=== PATIENT | male | born 1935 | race Caucasian/White ===

== ENCOUNTER 2018-06-16 13:13 | Observation (INO) | payer OTHER ==
--- OUTSIDE RECORDS SUMMARY | 2018-06-16 13:15 | XMS REPORT ---
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
--- OUTSIDE RECORDS SUMMARY | 2018-06-16 13:15 | XMS REPORT ---
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, in partial remission Problem Macular degeneration, unspecified H35.30 Active laterality, unspecified type Problem Weakness R53.1 Active Problem Malnutrition E46 Active Problem Cerumen impaction H61.20 Active Problem Tobacco use disorder F17.200 Active Problem Chronic obstructive pulmonary J44.9 Active disease, unspecified COPD type Problem Anorexia R63.0 Active Problem Malaise and fatigue R53.81 Active Medications Medication Code Code Instructions Start End Status Dosage System Date Date Albuterol-Ipratr NDC 0 2.5-0.5 MG/3ML Active 3 ml opium Inhalation every 6 hrs Fexofenadine HCl ND 74902715317 60 MG Orally Active 1 tablet Twice a day as needed Mirtazapine ND 33754290195 7.5 MG Orally Active 1 tablet Once a day at bedtime Ventolin HFA ND 98895262107 108 (90 Base) April Active 2 puffs as MCG/ACT 2017 needed Inhalation every 6 hrs PRN Cough, Shortness of breath, wheezing Results No Known Results Summary Purpose eClinicalWorks Submission
--- OUTSIDE RECORDS SUMMARY | 2018-06-16 13:16 | XMS REPORT ---
:1935 Author Organization eClinicalWorks Care Team Providers Name Role Phone Quinton Lucio Provider Role Unavailable Allergies No Known Allergies Problems Problem Type Condition Code Onset Dates Condition Status Problem Major depressive disorder with F32.4 Active [...] R53.81 Active Medications No Known Medications Results No Known Results Summary Purpose eClinicalWorks Submission
--- OUTSIDE RECORDS SUMMARY | 2018-06-16 13:16 | XMS REPORT ---
:1935 Author Organization eClinicalWorks Care Team Providers Name Role Phone LucioQuinton Provider Role Unavailable Allergies, Adverse Reactions, Alerts Substance Reaction Event Type N.K.D.A. 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, in partial remission Problem Macular degeneration, unspecified H35.30 Active laterality, unspecified type Problem Weakness R53.1 Active Problem Malnutrition E46 Active Problem Cerumen impaction H61.20 Active Problem Tobacco use disorder F17.200 Active Problem Chronic obstructive pulmonary J44.9 Active disease, unspecified COPD type Problem Anorexia R63.0 Active Problem Malaise and fatigue R53.81 Active Assessment Malaise and fatigue R53.81 Active Assessment Unintentional weight loss R63.4 Active Assessment Weakness R53.1 Active Assessment 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, in partial remission Assessment Malnutrition E46 Active Assessment Anorexia R63.0 Active Assessment Chronic obstructive pulmonary J44.9 Active disease, unspecified COPD type Assessment Chronic diarrhea K52.9 Active Medications Medication Code Code Instructions Start End Status Dosage System Date Date Ventolin HFA [facility] 41775714983 108 (90 Base) Active 2 puffs as MCG/ACT needed Inhalation every 6 hrs PRN Cough, Shortness of breath, wheezing Albuterol-Ipratr NDC 0 2.5-0.5 MG/3ML Active 3 ml opium Inhalation every 6 hrs Fexofenadine HCl NDC 59329751136 60 MG Orally Active 1 tablet Twice a day as needed Mirtazapine NDC 18296645014 7.5 MG Orally Active 1 tablet Once a day at bedtime Results No Known Results Summary Purpose eClinicalWorks Submission
--- OUTSIDE RECORDS SUMMARY | 2018-06-16 13:16 | XMS REPORT ---
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, in partial remission Assessment Unintentional weight loss R63.4 Active Assessment Malnutrition E46 Active Assessment Anorexia R63.0 Active Assessment Chronic obstructive pulmonary J44.9 Active disease, unspecified COPD type Medications Medication Code Code Instructions Start End Status Dosage System Date Date Albuterol-Ipratr NDC 0 2.5-0.5 MG/3ML Active 3 ml opium Inhalation every 6 hrs Ventolin HFA ND 26080083630 108 (90 Base) Active 2 puffs as MCG/ACT needed Inhalation every 6 hrs PRN Cough, Shortness of breath, wheezing Fexofenadine HCl ND 53883149456 60 MG Orally Active 1 tablet Twice a day as needed Mirtazapine ND 18253721649 7.5 MG Orally Active 1 tablet Once a day at bedtime Results Name Result Date Reference Range Unit Abnormality Flag TSH W/REFLEX TO FT4 ----TSH W/REFLEX TO 2.68 [id number] 0.40-4.50 mIU/L N FT4 CBC (INCLUDES DIFF/PLT) ----ABSOLUTE 844 86303294 15-500 cells/uL H EOSINOPHILS ----MCV 93.5 33057151 80.0-100.0 fL N ----ABSOLUTE 695 17793813 200-950 cells/uL N MONOCYTES ----HEMATOCRIT 38.7 55767564 38.5-50.0 % N ----MCHC 34.6 60555056 32.0-36.0 g/dL N ----ABSOLUTE 1340 26782112 850-3900 cells/uL N LYMPHOCYTES ----MCH 32.4 37325497 27.0-33.0 pg N ----ABSOLUTE 2742 15022112 2847-5908 cells/uL N NEUTROPHILS ----MONOCYTES 12.2 73438176 % N ----WHITE BLOOD 5.7 12616395 3.8-10.8 Thousand/u N CELL COUNT L ----LYMPHOCYTES 23.5 84226932 % N ----NEUTROPHILS 48.1 08519213 % N ----HEMOGLOBIN 13.4 34976464 13.2-17.1 g/dL N ----ABSOLUTE 80 57379691 0-200 cells/uL N BASOPHILS ----RED BLOOD CELL 4.14 92403910 4.20-5.80 Million/uL L COUNT ----BASOPHILS 1.4 71547167 % N ----MPV 9.4 30476323 7.5-12.5 fL N ----EOSINOPHILS 14.8 26521870 % N ----RDW 13.2 87920305 11.0-15.0 % N ----PLATELET COUNT 265 28296967 140-400 Thousand/u N L COMPREHENSIVE METABOLIC PANEL(CMP) ----ALBUMIN/GLOBULI 1.7 59886994 1.0-2.5 (calc) N N RATIO ----GLOBULIN 2.6 81628602 1.9-3.7 g/dL N (calc) ----ALKALINE 50 18259742 40-115 U/L N PHOSPHATASE ----BILIRUBIN, 0.7 13963328 0.2-1.2 mg/dL N TOTAL ----CHLORIDE 94 22096648 98-110 mmol/L L ----ALT 12 57525344 9-46 U/L N ----POTASSIUM 5.0 20180226 3.5-5.3 mmol/L N ----AST 23 20180226 10-35 U/L N ----SODIUM 131 20180226 135-146 mmol/L L ----BUN/CREATININE NOT APPLICABLE 20180226 6-22 (calc) RATIO ----eGFR 95 20180226 > OR=60 mL/min/1.[address] ----CALCIUM 9.4 20180226 8.6-10.3 mg/dL N ----CARBON DIOXIDE 29 20180226 20-32 mmol/L N ----ALBUMIN 4.4 20180226 3.6-5.1 g/dL N ----PROTEIN, TOTAL 7.0 20180226 6.1-8.1 g/dL N ----GLUCOSE 93 20180226 65-99 mg/dL N ----UREA NITROGEN 10 20180226 7-25 mg/dL N (BUN) ----CREATININE 0.80 20180226 0.70-1.11 mg/dL N ----eGFR NON-AFR. 82 20180226 > OR=60 mL/min/1.[address] URINALYSIS, COMPLETE W/REFLEX TO CULTURE ----KETONES NEGATIVE 20180226 NEGATIVE N ----BILIRUBIN NEGATIVE 20180226 NEGATIVE N ----PROTEIN NEGATIVE 08249283 NEGATIVE N ----OCCULT BLOOD NEGATIVE 14708313 NEGATIVE N ----LEUKOCYTE NEGATIVE 20180226 NEGATIVE N ESTERASE ----WBC NONE SEEN 20180226 < OR=5 /HPF N ----NITRITE NEGATIVE 20180226 NEGATIVE N ----BACTERIA NONE SEEN 20180226 NONE SEEN /HPF N ----PH 6.5 40022055 5.0-8.0 N ----HYALINE CAST NONE SEEN 20180226 NONE SEEN /LPF N ----GLUCOSE NEGATIVE 47915471 NEGATIVE N ----RBC NONE SEEN 31759568 < OR=2 /HPF N ----APPEARANCE CLEAR 56371969 CLEAR N ----SQUAMOUS NONE SEEN 49178505 < OR=5 /HPF N EPITHELIAL CELLS ----SPECIFIC 1.014 20180226 1.001-1.035 N GRAVITY ----COLOR YELLOW 10014010 YELLOW N ----REFLEXIVE URINE NO CULTURE 20180226 CULTURE INDICATED URIC ACID ----URIC ACID 4.1 20180226 4.0-8.0 mg/dL N Summary Purpose eClinicalWorks Submission
--- OUTSIDE RECORDS SUMMARY | 2018-06-16 13:16 | XMS REPORT ---
:1935 [facility] Providers Name Role Phone NaveedQuinton Provider Role Unavailable Allergies, Adverse Reactions, Alerts Substance Reaction Event Type N.K.D.A. 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, in partial remission Problem Cerumen impaction H61.20 Active Assessment Encounter for screening for other Z13.89 Active disorder Problem Weakness R53.1 Active Assessment Uncomplicated alcohol abuse F10.10 Active Problem Allergic rhinitis, unspecified J30.9 Active seasonality, unspecified trigger Problem Malaise and fatigue R53.81 Active Problem Tobacco use disorder F17.200 Active Problem Malnutrition E46 Active Problem Anorexia R63.0 Active Assessment Anorexia R63.0 Active Assessment Chronic diarrhea K52.9 Active Assessment Weakness R53.1 Active Assessment Malaise and fatigue R53.81 Active Assessment Allergic rhinitis, unspecified J30.9 Active seasonality, unspecified trigger Assessment Chronic obstructive pulmonary J44.9 Active disease, unspecified COPD type Assessment Malnutrition E46 Active Assessment 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, in partial remission Problem Need for assistance due to unsteady R26.89 Active gait Medications Medication Code Code Instructions Start End Date Status Dosage System Date Albuterol-Iprat NDC 0 2.5-0.5 MG/3ML Active 3 ml ropium Inhalation every 6 hrs Mirtazapine ND 96701916514 7.5 MG Orally Active 1 tablet Once a day at bedtime Ventolin HFA ND 70506156092 108 (90 Base) Active 2 puffs MCG/ACT as needed Inhalation every 6 hrs PRN Cough, Shortness of breath, wheezing Cetirizine HCl ND 75169457271 10 MG Orally AprilAugust 03, Active 1 tablet Once a day 2018 Fexofenadine [facility] 44377579112 60 MG Orally April Inactive 1 tablet HCl Twice a day 2018 as needed Montelukast [facility] 62218887772 10 MG Orally April Active 1 tablet Sodium Once a day 2018 Results No Known Results Summary Purpose eClinicalWorks Submission
--- OUTSIDE RECORDS SUMMARY | 2018-06-16 13:16 | XMS REPORT ---
[...] Problem Malaise and fatigue R53.81 Active Assessment Anorexia R63.0 Active Assessment 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, in partial remission Assessment Unintentional weight loss R63.4 Active Assessment Malnutrition E46 Active Assessment Chronic diarrhea K52.9 Active Assessment Chronic obstructive pulmonary J44.9 Active disease, unspecified COPD type Medications Medication Code Code Instructions Start End Status Dosage System Date Date Fexofenadine HCl ND 50177183639 60 MG Orally Active 1 tablet Twice a day as needed Mirtazapine ND 49057305612 7.5 MG Orally Active 1 tablet Once a day at bedtime Ventolin HFA ND 35192818605 108 (90 Base) Active 2 puffs as MCG/ACT needed Inhalation every 6 hrs PRN Cough, Shortness of breath, wheezing Albuterol-Ipratr NDC 0 2.5-0.5 MG/3ML Active 3 ml opium Inhalation every 6 hrs Results No Known Results Summary Purpose eClinicalWorks Submission
--- NOTE | 2018-06-16 15:14 | EKG ---
Test Date: 2018-06-16 Test Time: 15:03:56 Master Technician: RADHA MEASUREMENT RESULTS: Intervals: Rate: 86 NH: 152 QRSD: 106 QT: 364 QTc: 435 [place]: P: 78 NH: 152 QRS: -60 T: 70 INTERPRETIVE STATEMENTS: Sinus rhythm with premature atrial complexes Left axis deviation Right bundle branch block Abnormal ECG Compared to ECG 07/13/2014 12:52:28 Atrial premature complex(es) now present Left-axis deviation now present Electronically Signed On 06-16-18 15:13:50 CDT by Lobito Hunter
[2018-06-16] MEDS ORDERED: ALBUTEROL 2.5 MG/3 ML NEB SOL ONE (15:18)
[2018-06-16] MEDS ORDERED: IPRATROPIUM BROM 0.5MG/2.5ML ONE (15:18)
[2018-06-16] MEDS ORDERED: predniSONE 20 MG TAB ONE (15:19)
[2018-06-16 15:35] LABS: Absolute Lymphocytes (CBC) 0.7 K/uL (0.7-4.9); Absolute Monocytes 0.7 K/uL (0.1-1.3); Absolute Neutrophil 3.8 K/uL (1.8-8.0); Basophils % 0.4 % (0-1.3); Eosinophils % 14.6 % (0-4.4); Lymphocytes % 11.1 % (15.3-44.8); MPV 7.1 fL (7.6-11.3); Monocytes % 12.2 % (3.3-12.3); RBC Red Blood Cell Count 4.19 M/uL (4.33-5.43)
[2018-06-16 15:36] LABS: Protime INR 0.98
[2018-06-16 15:46] LABS: ALT/SGPT 16 U/L (12-78); AST/SGOT 21 U/L (15-37); Albumin 3.7 g/dL (3.4-5.0); Alkaline Phosphatase 70 U/L (45-117); BUN Blood Urea Nitrogen 14 mg/dL (7-18); Bicarbonate 30 mmol/L (21-32); Bilirubin Direct 0.2 mg/dL (0-0.2); Bilirubin Total 0.6 mg/dL (0.2-1.0); Glucose Level 83 mg/dL (74-106); Magnesium 2.1 mg/dL (1.8-2.4); NT PRO-BNP 582 pg/mL (<450); Potassium 4.7 mmol/L (3.5-5.1); Protein, Total 8.1 g/dL (6.4-8.2); Sodium Level 133 mmol/L (136-145); Troponin (Emerg Dept Use Only) < 0.02 ng/mL (0.0-0.045)
--- NOTE | 2018-06-16 16:17 | RAD REPORT ---
EXAM DESCRIPTION: RAD - Chest Single View - 06/16/2018 4:03 pm CLINICAL HISTORY: COPD, shortness of breath COMPARISON: December 2016 TECHNIQUE: AP portable chest image was obtained 1556 hours . FINDINGS: Very extensive interstitial fibrotic changes are present. There is some volume loss in the right hemithorax compared to prior imaging. Lung markings are slightly more pronounced in the mid ri ght lung field. Severity of chronic disease can easily mask early interstitial edema or infiltrate. N o failure findings. Heart and vasculature are normal. No measurable pleural effusion and no pneumotho rax. No acute bony abnormality seen. No acute aortic findings suspected. IMPRESSION: Extensive fibrotic lung change. Questionable early pneumonia changes in the right midlung field.
--- NOTE | 2018-06-16 16:56 | ER ---
Nurse's Notes [facility] Name: Elias Carlisle Age: 82 yrs Sex: Male : 1935 Arrival Date: 06/16/2018 Time: 13:15 Bed 26 Private MD: Quinton Lucio Diagnosis: Chronic obstructive pulmonary disease with (acute) exacerbation;Lobar pneumonia, unspecified organism;Hypoxemia Presentation: 06/16 13:27 Presenting complaint: daughter reports that patient has a history of COPD and has had ss shortness of breath x 2 days. Denies fever. Also c/o diarrhea and decreased appetite. Transition of care: patient was not received from another setting of care. Onset of symptoms was June 14, 2018. Risk Assessment: Do you want to hurt yourself or someone else? Patient reports no desire to harm self or others. Initial Sepsis Screen: Does the patient meet any 2 criteria? No. Patient's initial sepsis screen is negative. Does the patient have a suspected source of infection? No. Patient's initial sepsis screen is negative. Care prior to arrival: None. 13:27 Acuity: MARTIR 2 ss 13:27 Method Of Arrival: Wheelchair ss Triage Assessment: 18:00 Respiratory: Reports shortness of breath on exertion Onset: The symptoms/episode mg2 began/occurred yesterday, the patient has mild shortness of breath. 18:00 General: Appears in no apparent distress. comfortable, Behavior is calm, cooperative. mg2 Historical: - Allergies: 13:29 INFLUENZA VIRUS VACCINES; ss - Home Meds: 16:00 Dimetapp [Active]; mg2 - PMHx: 13:29 COPD; macular degeneration; ss - Immunization history:: Adult Immunizations up to date. - Social history:: Smoking status: Patient/guardian denies using tobacco, the patient reports quitting approximately 2 years ago. - Ebola Screening: : Patient denies exposure to infectious person Patient denies travel to an Ebola-affected area in the 21 days before illness onset. Screenin:48 Abuse screen: Denies threats or abuse. Denies injuries from another. Nutritional mg2 screening: No deficits noted. Tuberculosis screening: No symptoms or risk factors identified. Fall Risk IV access (20 points). Assessment: 15:47 General: Appears in no apparent distress. comfortable, Behavior is calm, cooperative. mg2 Pain: Denies pain. Neuro: Level of Consciousness is awake, alert, obeys commands, Oriented to person, place, time, situation. Cardiovascular: Rhythm is. Respiratory: Airway is patent Respiratory effort is even, unlabored, Respiratory pattern is regular, symmetrical, Breath sounds with wheezes bilaterally. in right upper lobe, left upper lobe, right middle lobe, left lower lobe, right lower lobe, left posterior upper lobe, right posterior upper lobe, left posterior lower lobe, right posterior middle lobe and right posterior lower lobe. GI: No signs and/or symptoms were reported involving the gastrointestinal system. : No signs and/or symptoms were reported regarding the genitourinary system. EENT: No signs and/or symptoms were reported regarding the EENT system. Derm: Skin is intact, is healthy with good turgor, Skin is pink, warm \T\ dry. normal. Musculoskeletal: No signs and/or symptoms reported regarding the musculoskeletal system. 17:24 Reassessment: dr tee -hospitalist at bedside assessing the patient. patient and mg2 family informed about the admission. Vital Signs: 13:29 BP 131 / 67; Pulse 105; Resp 19; Temp 98.2(TE); Pulse Ox 93% on R/A; Weight 47.63 kg; ss Height 5 ft. 6 in. (167.64 cm); 14:06 Pulse Ox 97% on 2 lpm NC; ss 15:59 BP 169 / 84; Pulse 88; Resp 18; Temp 98.1; Pulse Ox 98% on 2 lpm NC; mg2 17:39 BP 159 / 83; Pulse 86; Resp 20; Temp 98.0(O); Pulse Ox 100% ; lt1 17:51 BP 158 / 82; Pulse 92; Resp 18; Temp 98; Pulse Ox 98% on 2 lpm NC; Pain 0/10; mg2 19:30 BP 143 / 69; Pulse 99; Resp 18; Temp 98.5; Pulse Ox 97% on 2 lpm NC; Pain 0/10; mg2 13:29 Body Mass Index 16.95 (47.63 kg, 167.64 cm) ED Course: 13:15 Patient arrived in ED. mr 13:15 Quinton Lucio DO is Private Physician. mr 13:28 Triage completed. ss 13:29 Arm band placed on right wrist. ss 14:33 Darryl Topete, RN is Primary Nurse. mg2 14:48 Hernesto Wood MD is Attending Physician. gs 15:03 EKG done, by surgery technician. reviewed by Hernesto Wood MD. at1 15:48 Patient has correct armband on for positive identification. Pulse ox on. NIBP on. Door mg2 closed. Warm blanket given. 15:48 No provider procedures requiring assistance completed. Inserted saline lock: 20 gauge mg2 in right antecubital area, using aseptic technique. Blood collected. 16:03 XRAY Chest (1 view) In Process Unspecified. EDMS 16:55 Alyssa Tee MD is Hospitalizing Provider. gs 19:53 Patient admitted, IV remains in place. mg2 Administered Medications: 15:18 Drug: Albuterol 2.5 mg Route: Inhalation; mg2 16:12 Follow up: Response: No adverse reaction; Marked relief of symptoms mg2 15:18 Drug: AtroVENT Aerosol 0.5 mg Route: Inhalation; mg2 16:12 Follow up: Response: No adverse reaction; Marked relief of symptoms mg2 15:18 Drug: predniSONE 40 mg Route: PO; mg2 16:12 Follow up: Response: No adverse reaction; Marked relief of symptoms mg2 17:14 Drug: Rocephin - (cefTRIAXone) 1 grams Route: IVPB; Infused Over: 30 mins; Site: right mg2 antecubital; 20:18 Follow up: Response: No adverse reaction; IV Status: Completed infusion mg2 17:14 Drug: LevaQUIN 500 mg Volume: 100 ml; Route: IVPB; Infused Over: 60 mins; Site: right mg2 antecubital; 20:18 Follow up: Response: No adverse reaction; IV Status: Completed infusion mg2 Outcome: 16:55 Decision to Hospitalize by Provider. gs 19:53 Admitted to Tele accompanied by tech, via wheelchair, room 406, with oxygen, with mg2 chart, Report called to EFRAIN Cervantes 19:53 Condition: improved 19:53 Instructed on the need for admit. 20:19 Patient left the ED. mg2 Signatures: Dispatcher [employer] EDLA Lucie Ferrera Shelby, RN RN ss Jacquie Rivers, field mechanical meter tester EKG Tat1 Hernesto Wood MD MD Darryl Topete RN RN mg2 Pemberton, Scarlett lt1 Corrections: (The following items were deleted from the chart) 16:00 15:59 Pulse 88bpm; Resp 18bpm; Pulse Ox 98% 2 lpm Nasal Cannula; Temp 98.1F; mg2 mg2
--- NOTE | 2018-06-16 16:56 | EDPHYS ---
Physician Documentation [facility] Name: Elias Carlisle Age: 82 yrs Sex: Male : 1935 Arrival Date: 06/16/2018 Time: 13:15 Bed 26 Private MD: Naveed [facility] ED Physician Hernesto Wood HPI: 06/16 18:33 This 82 yrs old Male presents to ER via Wheelchair with complaints of gs Breathing Difficulty. 18:33 The patient has shortness of breath at rest. Onset: The symptoms/episode began/occurred gs 1 week(s) ago, and became worse and became persistent. Duration: The symptoms are continuous. The patient's shortness of breath is aggravated by coughing, exertion. Associated signs and symptoms: Pertinent positives: productive cough, Pertinent negatives: fever. Severity of symptoms: At their worst the symptoms were severe in the emergency department the symptoms are unchanged. The patient has experienced similar episodes in the past, several times. The patient has not recently seen a physician. Historical: - Allergies: 13:29 INFLUENZA VIRUS VACCINES; ss - Home Meds: 16:00 Dimetapp [Active]; mg2 - PMHx: 13:29 COPD; macular degeneration; ss - Immunization history:: Adult Immunizations up to date. - Social history:: Smoking status: Patient/guardian denies using tobacco, the patient reports quitting approximately 2 years ago. - Ebola Screening: : Patient denies exposure to infectious person Patient denies travel to an Ebola-affected area in the 21 days before illness onset. ROS: 18:33 All other systems are negative. gs Exam: 18:33 Head/Face: Normocephalic, atraumatic. Eyes: Pupils equal round and reactive to light, gs extra-ocular motions intact. Lids and lashes normal. Conjunctiva and sclera are non-icteric and not injected. Cornea within normal limits. Periorbital areas with no swelling, redness, or edema. ENT: Nares patent. No nasal discharge, no septal abnormalities noted. Tympanic membranes are normal and external auditory canals are clear. Oropharynx with no redness, swelling, or masses, exudates, or evidence of obstruction, uvula midline. Mucous membranes moist. Neck: Trachea midline, no thyromegaly or masses palpated, and no cervical lymphadenopathy. Supple, full range of motion without nuchal rigidity, or vertebral point tenderness. No Meningismus. Chest/axilla: Normal chest wall appearance and motion. Nontender with no deformity. No lesions are appreciated. 18:33 Abdomen/GI: Soft, non-tender, with normal bowel sounds. No distension or tympany. No guarding or rebound. No evidence of tenderness throughout. Back: No spinal tenderness. No costovertebral tenderness. Full range of motion. Skin: Warm, dry with normal turgor. Normal color with no rashes, no lesions, and no evidence of cellulitis. MS/ Extremity: Pulses equal, no cyanosis. Neurovascular intact. Full, normal range of motion. Neuro: Awake and alert, GCS 15, oriented to person, place, time, and situation. Cranial nerves II-XII grossly intact. Motor strength 5/5 in all extremities. Sensory grossly intact. Cerebellar exam normal. Normal gait. 18:33 Constitutional: The patient appears alert, awake, in obvious distress, severely distressed. 18:33 Cardiovascular: Rate: tachycardic, Rhythm: regular, Pulses: no pulse deficits are appreciated, Heart sounds: normal. 18:33 ECG was reviewed by the Attending Physician. 18:33 Respiratory: severe repiratory distress is noted, Respirations: tachypnea, that is moderate, Breath sounds: wheezing: Vital Signs: 13:29 BP 131 / 67; Pulse 105; Resp 19; Temp 98.2(TE); Pulse Ox 93% on R/A; Weight 47.63 kg; ss Height 5 ft. 6 in. (167.64 cm); 14:06 Pulse Ox 97% on 2 lpm NC; ss 15:59 BP 169 / 84; Pulse 88; Resp 18; Temp 98.1; Pulse Ox 98% on 2 lpm NC; mg2 17:39 BP 159 / 83; Pulse 86; Resp 20; Temp 98.0(O); Pulse Ox 100% ; lt1 17:51 BP 158 / 82; Pulse 92; Resp 18; Temp 98; Pulse Ox 98% on 2 lpm NC; Pain 0/10; mg2 19:30 BP 143 / 69; Pulse 99; Resp 18; Temp 98.5; Pulse Ox 97% on 2 lpm NC; Pain 0/10; mg2 13:29 Body Mass Index 16.95 (47.63 kg, 167.64 cm) MDM: 14:57 Patient medically screened. gs 18:33 Differential diagnosis: CHF exacerbation, Chronic Obstructive Pulmonary Disease gs Myocardial Infarction pneumonia. Data reviewed: vital signs, nurses notes, lab test result(s), EKG, radiologic studies. Counseling: I had a detailed discussion with the patient and/or guardian regarding: the historical points, exam findings, and any diagnostic results supporting the discharge/admit diagnosis, the need for outpatient follow up. Response to treatment: the patient's symptoms have mildly improved after treatment, and as a result, I will admit patient. 06/16 14:58 Order name: Basic Metabolic Panel; Complete Time: 16:02 06/16 14:58 Order name: CBC with Diff; Complete Time: 16:02 06/16 14:58 Order name: LFT's; Complete Time: 16:02 06/16 14:58 Order name: Magnesium; Complete Time: 16:02 06/16 14:58 Order name: NT PRO-BNP; Complete Time: 16:02 06/16 14:58 Order name: PT-INR; Complete Time: 16:02 06/16 14:58 Order name: Troponin (emerg Dept Use Only); Complete Time: 16:02 06/16 14:58 Order name: XRAY Chest (1 view); Complete Time: 16:34 06/16 14:58 Order name: EKG; Complete Time: 14:58 06/16 14:58 Order name: Cardiac monitoring; Complete Time: 15:18 06/16 14:58 Order name: EKG - Nurse/Tech; Complete Time: 15:03 06/16 14:58 Order name: IV Saline Lock; Complete Time: 15:18 06/16 14:58 Order name: Labs collected and sent; Complete Time: 15:18 06/16 14:58 Order name: O2 Per Protocol; Complete Time: 15:18 06/16 14:58 Order name: O2 Sat Monitoring; Complete Time: 15:18 gs EC:33 Rate is 108 beats/min. Rhythm is regular. MN interval is normal. QRS interval is gs normal. No ST changes noted. Clinical impression: Abnormal EKG without significant change. Interpreted by me. Administered Medications: 15:18 Drug: Albuterol 2.5 mg Route: Inhalation; mg2 16:12 Follow up: Response: No adverse reaction; Marked relief of symptoms mg2 15:18 Drug: AtroVENT Aerosol 0.5 mg Route: Inhalation; mg2 16:12 Follow up: Response: No adverse reaction; Marked relief of symptoms mg2 15:18 Drug: predniSONE 40 mg Route: PO; mg2 16:12 Follow up: Response: No adverse reaction; Marked relief of symptoms mg2 17:14 Drug: Rocephin - (cefTRIAXone) 1 grams Route: IVPB; Infused Over: 30 mins; Site: right mg2 antecubital; 20:18 Follow up: Response: No adverse reaction; IV Status: Completed infusion mg2 17:14 Drug: LevaQUIN 500 mg Volume: 100 ml; Route: IVPB; Infused Over: 60 mins; Site: right mg2 antecubital; 20:18 Follow up: Response: No adverse reaction; IV Status: Completed infusion mg2 Disposition: 18:33 Critical Care:. gs Disposition: 06/16/18 16:55 Hospitalization ordered by Alyssa Espinosa for Inpatient Admission. Preliminary diagnosis are Chronic obstructive pulmonary disease with (acute) exacerbation, Lobar pneumonia, unspecified organism, Hypoxemia. - Bed requested for Telemetry/MedSurg (Inpatient). - Status is Inpatient Admission. mg2 - Condition is Stable. - Problem is new. - Symptoms have improved. UTI on Admission? No Critical care time excluding procedures: 18:33 Critical care time: Bedside Care: 10 minutes, Consultation: 10 minutes, Family gs Intervention: 10 minutes. Total time: 30 minutes Signatures: Dispatcher [employer] EDMS Juany Ponce Shaunna Crawford RN RN Hernesto Wood MD MD Darryl Topete RN RN mg2 Corrections: (The following items were deleted from the chart) 18:39 16:55 Hospitalization Ordered by Alyssa Espinosa MD for Inpatient Admission. Preliminary bd diagnosis is Chronic obstructive pulmonary disease with (acute) exacerbation; Lobar pneumonia, unspecified organism. Bed requested for Telemetry/MedSurg (Inpatient). Status is Inpatient Admission. Condition is Stable. Problem is new. Symptoms have improved. UTI on Admission? No. gs 18:42 18:39 06/16/2018 16:55 Hospitalization Ordered by Alyssa Espinosa MD for Inpatient Admission. Preliminary diagnosis is Chronic obstructive pulmonary disease with (acute) exacerbation; Lobar pneumonia, unspecified organism. Bed requested for Telemetry/MedSurg (Inpatient). Status is Inpatient Admission. Condition is Stable. Problem is new. Symptoms have improved. UTI on Admission? No. bd 20:19 18:42 06/16/2018 16:55 Hospitalization Ordered by Alyssa Espinosa MD for Inpatient mg2 Admission. Preliminary diagnosis is Chronic obstructive pulmonary disease with (acute) exacerbation; Lobar pneumonia, unspecified organism; Hypoxemia. Bed requested for Telemetry/MedSurg (Inpatient). Status is Inpatient Admission. Condition is Stable. Problem is new. Symptoms have improved. UTI on Admission? No. gs
[2018-06-16] MEDS ORDERED: Levofloxacin500mg IV 500 MG/100 ML BAG IV ONE (17:15)
[2018-06-16] MEDS ORDERED: CEFTRIAXONE/SWI 1gm 1 GM/10 ML SYR ONE (17:15)
[2018-06-16] MEDS ORDERED: ACETAMINOPHEN 500 MG TAB PO PRN (20:42)
[2018-06-16] MEDS ORDERED: IPRATROPIUM BROM 0.5MG/2.5ML NEB PRN (20:42)
[2018-06-16] MEDS ORDERED: ALBUTEROL 2.5 MG/3 ML NEB SOL NEB PRN (20:42)
[2018-06-16] MEDS ORDERED: ONDANSETRON 4 MG/2 ML VIAL IV PRN (20:42)
[2018-06-16] MEDS: METHYLPREDNISOLONE 40 MG INJ IV SCH (21:00)
[2018-06-17] MEDS ORDERED: ALBUTEROL INHALER 60 PUFF/8 GM IH PRN (00:11)
[2018-06-17 03:21] LABS: Urine Appearance CLEAR; Urine Bilirubin NEGATIVE (NEG); Urine Blood NEGATIVE (NEG); Urine Color YELLOW; Urine Glucose NEGATIVE (NEG); Urine Protein NEGATIVE (NEG); Urine Specific Gravity 1.015 (1.005-1.030); Urine Urobilinogen 0.2 mg/dL (0.2-1.0)
[2018-06-17 03:23] LABS: Urine Microscopic Reflex NO UMIC
--- NOTE | 2018-06-17 03:23 | HP ---
Date of Admission: 06/16/2018 Chief Complaint: Shortness of breath. Code Status: Full. History Of Present Illness: The patient is an 82-year-old male with past medical history of COPD, on intermittent oxygen, who was in his usual state of health until several days prior to admission when the patient started having more difficulty ambulating, worsening shortness of breath, was only able to ambulate 3-5 feet without getting winded. The patient normally only uses oxygen during the nightt darrick, however, has been needing to use his home O2 during the daytime as well. The patient also repor ts some cough with thick white sputum. Denies any ill contacts. No fever or chills. The patient ca me into the ER for further evaluation. His symptoms were constant, moderate, progressively worsening . In the ER, his workup revealed normal WBC count. His x-ray showed extensive fibrotic lung change, questionable early pneumonia changes in the right mid lung field, and he was referred for admission. When seen in the ER, he was awake, alert, oriented x3, in some mild respiratory distress. He was f ound to be hypoxic, approximately 90% on room air. Past Medical History: COPD, nicotine dependence. Past Surgical History: Bilateral cataracts, tonsils and left finger surgery. Allergies: TO THE FLU VACCINE. Medications: As per medication reconciliation list. Social History: The patient lives alone, fairly independent in his activities of daily living. Uses a walker at times when going outside. The patient is a current every day smoker, has a long history of chronic alcohol use. The patient is . Family History: Noncontributory in this 82-year-old male. Review of Systems: Eleven-point system reviewed, negative except as per HPI. Physical Examination: Vital Signs: Blood pressure 131/67, pulse 105, respirations 19, temperature 98.2, O2 93% on room air . BMI 16. General: Awake, alert, oriented x3. Elderly male, ill appearing, in some mild respiratory distress. HEENT: Normocephalic, atraumatic. PERRLA. EOMI. Moist mucous membranes. Oropharynx is clear. Co njunctivae anicteric. Neck: Supple. No JVD. Trachea midline. CV: S1, S2. Regular rate and rhythm. Peripheral pulses present. Respiratory: Diminished breath sounds, diffuse wheezing is heard, some rhonchi present. The patient is slightly tachypneic. No use of accessory muscles. No stridor. Gastrointestinal: Abdomen is soft, nontender, nondistended. Positive bowel sounds. No guarding or rigidity. Extremities: No clubbing, cyanosis, or edema. No calf tenderness. Neuro: Cranial nerves 2 through 12 intact grossly. No focal neurological deficit. Speech is normal . Strength is symmetric in bilateral upper and lower extremities. Sensation intact to light touch. Skin: No rashes. Normal skin turgor. Psych: Mood is okay. Affect is congruent with mood. Insight and judgment are good. Laboratory Data: Sodium 133, potassium 4.7, chloride 98, CO2 30, BUN 14, creatinine 0.83, glucose 83 , calcium 9.1, magnesium 2.1. Troponin less than 0.02. BNP 582. INR 0.98. WBC 6.1, H and H 13.3 a nd 39, platelets 349, neutrophils 61%. EKG shows sinus rhythm with premature atrial complexes, left axis deviation, right bundle-branch block, rate of 86. Chest x-ray, personally reviewed, shows exten sive fibrotic lung change, questionable early pneumonia changes in the right mid lung field. Assessment And Plan: An 82-year-old male with: 1.Acute on chronic respiratory failure with hypoxia. The patient is already on home O2 intermittent ly, requiring oxygen 24/7 secondary to chronic obstructive pulmonary disease and pneumonia. 2.Right middle lobe pneumonia. We will start on azithromycin and Rocephin. Obtain blood cultures a nd sputum cultures. Continue with supplemental oxygen. 3.Acute chronic obstructive pulmonary disease exacerbation. We will start on nebulizer treatments a nd IV steroids. The patient currently requiring supplemental oxygen. We will continue to monitor fo r improvement. 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 4.Fibrotic lung disease. 5.Nicotine dependence. Cigarette smoking counseled. 6.Failure to thrive. BMI of 16. The patient currently on Megace. 7.Deep vein thrombosis prophylaxis with Lovenox. Plan: Admit the patient to Med-Surg, place as inpatient. We will obtain physical therapy once the p atient is more stabilized. May need snf facility versus PT with home health to be set up on discharge. We will consult Social Work. /PATRICIA Voice ID: [id number]
[2018-06-17] MEDS: METHYLPREDNISOLONE 40 MG INJ IV SCH ×4 (05:24→17:58)
[2018-06-17 05:56] LABS: Absolute Lymphocytes (CBC) 0.4 K/uL (0.7-4.9); Absolute Monocytes 0.1 K/uL (0.1-1.3); Absolute Neutrophil 1.8 K/uL (1.8-8.0); Albumin 3.1 g/dL (3.4-5.0); Basophils % 0.2 % (0-1.3); Bilirubin Total 0.4 mg/dL (0.2-1.0); Eosinophils % 0.1 % (0-4.4); Hematocrit 36.7 % (39.6-49.0); Lymphocytes % 18.6 % (15.3-44.8); MPV 7.4 fL (7.6-11.3); Monocytes % 3.2 % (3.3-12.3); Potassium 4.8 mmol/L (3.5-5.1); Protein, Total 7.2 g/dL (6.4-8.2); RBC Red Blood Cell Count 3.96 M/uL (4.33-5.43)
[2018-06-17] MEDS ORDERED: CEFTRIAXONE 1 GM/NS 50 ML 1 GM/50 ML BAG IV SCH (09:00)
[2018-06-17] MEDS ORDERED: ALBUTEROL 2.5 MG/3 ML NEB SOL NEB PRN (09:00)
[2018-06-17] MEDS: CEFTRIAXONE/SWI 1gm 1 GM/10 ML SYR IV SCH ×2 (09:45→21:03)
[2018-06-17] MEDS: ENOXAPARIN 40 MG/0.4 ML SQ SCH (10:47)
[2018-06-17] MEDS: AZITHROMYCIN IV 500 MG in NA CHLORIDE 0.9% 250 ML IVPB SCH (10:47)
[2018-06-17] MEDS: MONTELUKAST 10 MG TAB PO SCH (10:47)
[2018-06-17] MEDS: MULTIVIT W/ MINERAL TAB PO SCH (10:47)
[2018-06-17] MEDS: CETIRIZINE HCL 5 MG TABLET PO SCH (10:47)
[2018-06-17] MEDS: MUCINEX DM 12HR.SR TAB PO SCH (10:48)
--- NOTE | 2018-06-17 17:46 | P.PN ---
Subjective Date of Service: 06/17/18 Subjective: Improving Patient seen and examined at bedside. No family at bedside. Chart reviewed and case discussed with nursing staff. Reports improvement in breathing. States he is doing well. No acute events noted overnight Review of Systems 10-point ROS is otherwise unremarkable Physical Examination - Vital Signs Temperature: 97.6 F Blood Pressure: 127/57 Pulse: 81 Respirations: 18 Pulse Ox (%): 95 - Physical Exam General: Alert, In no apparent distress HEENT: Atraumatic, PERRLA, EOMI Neck: Supple, JVD not distended Respiratory: Clear to auscultation bilaterally, Normal air movement Cardiovascular: Regular rate/rhythm, Normal S1 S2 Gastrointestinal: Normal bowel sounds, No tenderness Musculoskeletal: No tenderness Integumentary: No rashes Neurological: Normal speech, Normal tone, Normal affect Lymphatics: No axilla or inguinal lymphadenopathy Assessment And Plan - Plan An 82-year-old male with: 1. Acute on chronic respiratory failure with hypoxia. Improving. The patient is already on home O2 intermittently, requiring oxygen 24/7 secondary to chronic obstructive pulmonary disease and pneumonia. 2. Right middle lobe pneumonia. Continue azithromycin and Rocephin. Follow up blood cultures and sputum cultures. Continue with supplemental oxygen. 3. Acute chronic obstructive pulmonary disease exacerbation. We will continue with nebulizer treatments and IV steroids. The patient currently requiring supplemental oxygen. We will continue to monitor for improvement. 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 4. Fibrotic lung disease. 5. Nicotine dependence. Cigarette smoking counseled. 6. Failure to thrive. BMI of 16. The patient currently on Megace. 7. Deep vein thrombosis prophylaxis with Lovenox. Plan: Pending symptomatic improvement. Patient refuses half-way facility placement. He would like to go home with home health. Social work already on board. Possible discharge home with home health in the next 24-48 hr.
[2018-06-17] MEDS ORDERED: MIRTAZAPINE 15 MG TAB PO SCH (21:00)
[2018-06-18] MEDS: METHYLPREDNISOLONE 40 MG INJ IV SCH ×4 (01:37→16:37)
[2018-06-18] MEDS: CETIRIZINE HCL 5 MG TABLET PO SCH (08:25)
[2018-06-18] MEDS: CEFTRIAXONE/SWI 1gm 1 GM/10 ML SYR IV SCH (08:25)
[2018-06-18] MEDS: ENOXAPARIN 40 MG/0.4 ML SQ SCH (08:25)
[2018-06-18] MEDS: MULTIVIT W/ MINERAL TAB PO SCH (08:25)
[2018-06-18] MEDS: MUCINEX DM 12HR.SR TAB PO SCH (08:26)
[2018-06-18] MEDS: MONTELUKAST 10 MG TAB PO SCH (08:26)
[2018-06-18] MEDS: AZITHROMYCIN IV 500 MG in NA CHLORIDE 0.9% 250 ML IVPB SCH (08:29)
[2018-06-18 09:31] LABS: Hematocrit 39.5 % (39.6-49.0); MPV 7.5 fL (7.6-11.3); RBC Red Blood Cell Count 4.19 M/uL (4.33-5.43)
[2018-06-18 09:47] LABS: Potassium 4.6 mmol/L (3.5-5.1)
--- NOTE | 2018-06-18 13:44 | RAD REPORT ---
EXAM DESCRIPTION: Moises Marroquin And Lat (2 Views)06/18/2018 1:33 pm CLINICAL HISTORY: Cough COMPARISON: June 16, 2018 FINDINGS: Lungs are markedly hyperaerated. The lungs appear clear of acute infiltrate. The heart is normal size IMPRESSION: COPD without visualization of an acute abnormality
--- NOTE | 2018-06-18 14:25 | P.SSS ---
Patient History Date of Service: 06/18/18 Reason for admission: SOB History of Present Illness: The patient is an 82-year-old male with past medical history of COPD, on intermittent oxygen, who was in his usual state of health until several days prior to admission when the patient started having more difficulty ambulating, worsening shortness of breath, was only able to ambulate 3-5 feet without getting winded. The patient normally only uses oxygen during the nighttime, however, has been needing to use his home O2 during the daytime as well. The patient also reports some cough with thick white sputum. Denies any ill contacts. No fever or chills. The patient came into the ER for further evaluation. His symptoms were constant, moderate, progressively worsening. In the ER, his workup revealed normal WBC count. His x-ray showed extensive fibrotic lung change, questionable early pneumonia changes in the right mid lung field, and he was referred for admission. When seen in the ER, he was awake, alert, oriented x3, in some mild respiratory distress. He was found to be hypoxic, approximately 90% on room air. Allergies Influen Allergy (Uncoded 10/20/16 22:28) Unknown INFLUENZA Allergy (Uncoded 12/19/16 17:10) Unknown Home medications list reviewed: Yes Home Medications: Albuterol Sulfate [Albuterol Sulfate 0.083% Neb Soln] 2.5 mg IH QIDP PRN Albuterol Sulfate [Ventolin Hfa] 2 puff IH DAILYPRN PRN 06/16/18 Cetirizine HCl 10 mg PO DAILY 06/16/18 Guaifenesin/Dextromethorphan [Mucinex Dm ER 600-30 mg Tablet] 1 each PO DAILY Mirtazapine 7.5 mg PO BEDTIME 06/16/18 Montelukast [Singulair*] 10 mg PO DAILY 06/16/18 Multivit-Min/FA/Lycopen/Lutein [Centrum Silver Tablet] 1 tab PO DAILY 06/16/18 Vit C/Jasmeet AC/Lut/Copper/Znox [Preservision Lutein Softgel] 1 each PO DAILY 08/29 Azithromycin Tab [Zithromax*] 250 mg PO DAILY #4 tab 06/18/18 predniSONE [Deltasone*] 10 mg PO BID #14 tab 06/18/18 - Past Medical/Surgical History Has patient received pneumonia vaccine in the past: No Diabetic: No -: COPD -: [employer]obb[employer] abuse -: MACULAR DEGENERATION ON RIGHT EYE -: cataract bilateral -: tonsils -: finger Left - Family History Father History Unknown: Yes Mother -: Cancer - Social History Smoking Status: Former smoker Alcohol use: Yes CD- Drugs: No Caffeine use: No Place of Residence: Home Review of Systems 10-point ROS is otherwise unremarkable Physical Examination - Vital Signs Temperature: 97.5 F Blood Pressure: 138/63 Pulse: 82 Respirations: 20 Pulse Ox (%): 96 - Physical Exam General: Alert, In no apparent distress, Cachectic, Other (Elderly, frail) HEENT: Atraumatic, PERRLA, Mucous membr. moist/pink, EOMI, Sclerae nonicteric Neck: Supple, 2+ carotid pulse no bruit, No LAD, Without JVD or thyroid abnormality Respiratory: Clear to auscultation bilaterally, Normal air movement Cardiovascular: Regular rate/rhythm, Normal S1 S2 Gastrointestinal: Normal bowel sounds, No tenderness Musculoskeletal: No tenderness Integumentary: No rashes Neurological: Normal gait, Normal speech, Normal strength at 5/5 x4 extr, Normal tone, Normal affect Lymphatics: No axilla or inguinal lymphadenopathy Treatment Summary: Patient was admitted for acute on chronic respiratory failure likely secondary to right lower lobe pneumonia. Patient does have a history of COPD and uses oxygen at home intermittently. He was started on IV antibiotics, breathing treatments and was provided supplemental oxygen as needed. Physical therapy was consulted as was social work for discharge planning. Patients symptoms improved; his breathing returned to baseline. His blood and sputum cultures remained negative. His repeat cxr was without any acute infiltrates. He worked well with physical therapy but refused placement in a nursing home facility. He reluctantly agreed to home health for PT. This was set up for the patient prior to discharge. Prior to discharge, he was AAOx3, in no acute distress, satting well on room air , working well with physical therapy. He otherwise remained stable throughout the stay. His diagnosis/treatment plan was explained to him, all questions were answered and he verbalized understanding. He was discharged home in a safe and stable manner with Home health. He was discharged home with a prescription for azithromycin 250 mg PO daily to complete a 5 day course and prednisone 10 mg BID x 7 days. He was instructed to follow up with his PCP and his sledger. - Disposition Discharge Date: 06/18/18 Disposition: DC HOME/HOME HEALTH CARE Condition: GOOD Patient Discharge Instructions: Please follow up with your primary care physician in 2-3 days. Please return to the Emergency room for worsening symptoms. Diet: AHA Activity: Ad diony Time Spent Managing Pts Care (In Minutes): 55
[2018-06-18] MEDS ORDERED: ENSURE ENLIVE 237 ML CAN PO SCH (21:00)
== END 2018-06-18 17:33 | disposition home health service (06) ==
LOC: ER 13:13 → ERHOLD 17:02 → INTOOBSV 17:02 → 4TH 19:59
PROVIDERS: ADMIT Family Medicine; ATTEND Family Medicine
DX: J96.21 Acute and chronic respiratory failure with hypoxia (principal); J44.0 Chronic obstructive pulmonary disease with (acute) lower respiratory infection; J18.9 Pneumonia, unspecified organism; J44.1 Chronic obstructive pulmonary disease with (acute) exacerbation; Z99.81 Dependence on supplemental oxygen; F17.210 Nicotine dependence, cigarettes, uncomplicated; R62.7 Adult failure to thrive; Z68.1 Body mass index [BMI] 19.9 or less, adult; J84.10 Pulmonary fibrosis, unspecified; Z88.7 Allergy status to serum and vaccine
CPT/HCPCS: 96365 ×3; 96368; 93005; 87040 ×2; 85025 ×2; 80048 ×2; 36415 ×2; 83735; 85610; 80076; 81003; 85027; 84484; 80053; 83880; 71045; 71046; 97116 ×3; 97163; 97530; 94640; 94760 ×4; 99285; 96366; J0456 ×2; J1650 ×2; J0696 ×4; J2920 ×8; G0378 ×2; J7512

== ENCOUNTER 2018-10-07 08:32 | Inpatient (IN) | payer OTHER, SELFPAY ==
--- OUTSIDE RECORDS SUMMARY | 2018-10-07 08:35 | XMS REPORT ---
[...] remission Problem Cerumen impaction H61.20 Active Assessment Uncomplicated alcohol abuse F10.10 Active Problem Weakness R53.1 Active Problem Allergic rhinitis, unspecified J30.9 Active [...] Start End Status Dosage System Date Date Tai [facility] 83086716232 15 MCG/2ML Sep 23, Active 2 ml Inhalation Twice 2019 a day Albuterol-Iprat NDC 0 2.5-0.5 MG/3ML Active 3 ml ropium Inhalation every 6 hrs Montelukast [facility] [id number] 10 MG Orally Active 1 tablet Sodium Once a day Cetirizine HCl ND 15142518817 10 MG Orally Active 1 tablet Once a day Montelukast ND 05646181581 10 MG Orally Active 1 tablet Sodium Once a day Ventolin HFA [facility] 11915007172 108 (90 Base) Active 2 puffs as MCG/ACT needed Inhalation every 6 hrs PRN Cough, Shortness of breath, wheezing Mirtazapine [facility] [id number] 7.5 MG Orally Active 1 tablet Once a day at bedtime Results No Known Results Summary Purpose eClinicalWorks Submission
--- OUTSIDE RECORDS SUMMARY | 2018-10-07 08:35 | XMS REPORT ---
:1935 [facility] Providers Name Role Phone Naveed [...] Inhalation every 6 hrs Ventolin HFA ND [id number] 108 (90 Base) Active 2 puffs as MCG/ACT needed Inhalation every 6 hrs PRN Cough, Shortness of breath, wheezing Fexofenadine HCl ND 29489735603 60 MG Orally Active 1 tablet Twice a day as needed Mirtazapine ND 28196839185 7.5 MG Orally Active 1 tablet Once a day at bedtime Results Name Result Date Reference Range Unit Abnormality Flag TSH W/REFLEX TO FT4 ----TSH W/REFLEX TO 2.68 [id number] 0.40-4.50 mIU/L N FT4 CBC (INCLUDES DIFF/PLT) ----ABSOLUTE 844 [id number] 15-500 cells/uL H EOSINOPHILS ----MCV 93.5 06531774 80.0-100.0 fL N ----ABSOLUTE 695 58967707 200-950 cells/uL N MONOCYTES ----HEMATOCRIT 38.7 88580663 38.5-50.0 % N ----MCHC 34.6 01084330 32.0-36.0 g/dL N ----ABSOLUTE 1340 45601594 850-3900 cells/uL N LYMPHOCYTES ----MCH 32.4 [id number] 27.0-33.0 pg N ----ABSOLUTE 2742 84459406 3158-8835 cells/uL N NEUTROPHILS ----MONOCYTES 12.2 56257742 % N ----WHITE BLOOD 5.7 [id number] 3.8-10.8 Thousand/u N CELL COUNT L ----LYMPHOCYTES 23.5 91745576 % N ----NEUTROPHILS 48.1 66631865 % N ----HEMOGLOBIN 13.4 67317669 13.2-17.1 g/dL N ----ABSOLUTE 80 95774806 0-200 cells/uL N BASOPHILS ----RED BLOOD CELL 4.14 61614002 4.20-5.80 Million/uL L COUNT ----BASOPHILS 1.4 24632954 % N ----MPV 9.4 00410126 7.5-12.5 fL N ----EOSINOPHILS 14.8 78459354 % N ----RDW 13.2 82132262 11.0-15.0 % N ----PLATELET COUNT 265 87025858 140-400 Thousand/u N L COMPREHENSIVE METABOLIC PANEL(CMP) ----ALBUMIN/GLOBULI 1.7 00988593 1.0-2.5 (calc) N N RATIO ----GLOBULIN 2.6 43924842 1.9-3.7 g/dL N (calc) ----ALKALINE 50 31049226 40-115 U/L N PHOSPHATASE ----BILIRUBIN, 0.7 85373365 0.2-1.2 mg/dL N TOTAL ----CHLORIDE 94 32718605 98-110 mmol/L L ----ALT 12 45393522 9-46 U/L N ----POTASSIUM 5.0 20180226 3.5-5.3 mmol/L N ----AST 23 20180226 10-35 U/L N ----SODIUM 131 20180226 135-146 mmol/L L ----BUN/CREATININE NOT APPLICABLE 20180226 6-22 (calc) RATIO ----eGFR 95 20180226 > OR=60 mL/min/1.[address] ----CALCIUM 9.4 20180226 8.6-10.3 mg/dL N ----CARBON DIOXIDE 29 20180226 20-32 mmol/L N ----ALBUMIN 4.4 20180226 3.6-5.1 g/dL N ----PROTEIN, TOTAL 7.0 20180226 6.1-8.1 g/dL N ----GLUCOSE 93 20180226 65-99 mg/dL N ----UREA NITROGEN 10 20180226 7-25 mg/dL N (BUN) ----CREATININE 0.80 20180226 0.70-1.11 mg/dL N ----eGFR NON-AFR. 82 20180226 > OR=60 mL/min/1.[address] URINALYSIS, COMPLETE W/REFLEX TO CULTURE ----KETONES NEGATIVE 20180226 NEGATIVE N ----BILIRUBIN NEGATIVE 20180226 NEGATIVE N ----PROTEIN NEGATIVE 64943228 NEGATIVE N ----OCCULT BLOOD NEGATIVE 14312116 NEGATIVE N ----LEUKOCYTE NEGATIVE 20180226 NEGATIVE N ESTERASE ----WBC NONE SEEN 20180226 < OR=5 /HPF N ----NITRITE NEGATIVE 20180226 NEGATIVE N ----BACTERIA NONE SEEN 20180226 NONE SEEN /HPF N ----PH 6.5 00712613 5.0-8.0 N ----HYALINE CAST NONE SEEN 20180226 NONE SEEN /LPF N ----GLUCOSE NEGATIVE 20550197 NEGATIVE N ----RBC NONE SEEN 47856882 < OR=2 /HPF N ----APPEARANCE CLEAR 96355240 CLEAR N ----SQUAMOUS NONE SEEN 09106148 < OR=5 /HPF N EPITHELIAL CELLS ----SPECIFIC 1.014 20180226 1.001-1.035 N GRAVITY ----COLOR YELLOW [id number] YELLOW N ----REFLEXIVE URINE NO CULTURE 20180226 CULTURE INDICATED URIC ACID ----URIC ACID 4.1 20180226 4.0-8.0 mg/dL N Summary Purpose eClinicalWorks Submission
--- OUTSIDE RECORDS SUMMARY | 2018-10-07 08:35 | XMS REPORT ---
:1935 [facility] Team Providers Name Role Phone LucioQuinton [...] Start End Status Dosage System Date Date Montelukast [facility] [id number] 10 MG Orally Active 1 tablet Sodium Once a day Montelukast [facility] 02988281223 10 MG Orally Active 1 tablet Sodium Once a day Albuterol-Iprat NDC 0 2.5-0.5 MG/3ML Active 3 ml ropium Inhalation every 6 hrs Ventolin HFA [facility] 82008192502 108 (90 Base) Active 2 puffs as MCG/ACT needed Inhalation every 6 hrs PRN Cough, Shortness of breath, wheezing Mirtazapine [facility] 86272031807 7.5 MG Orally Active 1 tablet Once a day at bedtime Results No Known Results Summary Purpose eClinicalWorks Submission
--- OUTSIDE RECORDS SUMMARY | 2018-10-07 08:35 | XMS REPORT ---
[...] ropium Inhalation every 6 hrs Mirtazapine ND 60392966358 7.5 MG Orally Active 1 tablet Once a day at bedtime Ventolin HFA ND 30191274970 108 (90 Base) Active 2 puffs MCG/ACT as needed Inhalation every 6 hrs PRN Cough, Shortness of breath, wheezing Cetirizine HCl ND 72513089583 10 MG Orally AprilAugust 03, Active 1 tablet Once a day 2018 Fexofenadine [facility] 97945843579 60 MG Orally April Inactive 1 tablet HCl Twice a day 2018 as needed Montelukast [facility] 23065342106 10 MG Orally April Active 1 tablet Sodium Once a day 2018 Results No Known Results Summary Purpose eClinicalWorks Submission
--- OUTSIDE RECORDS SUMMARY | 2018-10-07 08:35 | XMS REPORT ---
[...] due to unsteady R26.89 Active gait Problem Cerumen impaction H61.20 Active Problem Weakness R53.1 Active Problem Allergic rhinitis, unspecified J30.9 Active seasonality, unspecified trigger Problem Malaise and fatigue R53.81 Active Problem Tobacco use disorder F17.200 Active Problem Malnutrition E46 Active Problem Anorexia R63.0 Active Medications No Known Medications Results No Known Results Summary Purpose eClinicalWorks Submission
--- OUTSIDE RECORDS SUMMARY | 2018-10-07 08:35 | XMS REPORT ---
[...] Status Dosage System Date Date Ventolin HFA [facility] 59500609921 108 (90 Base) Active 2 puffs as MCG/ACT needed Inhalation every 6 hrs PRN Cough, Shortness of breath, wheezing Albuterol-Ipratr NDC 0 2.5-0.5 MG/3ML Active 3 ml opium Inhalation every 6 hrs Fexofenadine HCl NDC 84049053490 60 MG Orally Active 1 tablet Twice a day as needed Mirtazapine NDC 47410922402 7.5 MG Orally Active 1 tablet Once a day at bedtime Results No Known Results Summary Purpose eClinicalWorks Submission
[2018-10-07] MEDS ORDERED: LEVALBUTEROL 0.63 MG/3 ML NEB ONE (08:46)
[2018-10-07] MEDS ORDERED: IPRATROPIUM BROM 0.5MG/2.5ML ONE (08:47)
[2018-10-07] MEDS ORDERED: LEVALBUTEROL 1.25 MG/3 ML NEB ONE (08:57)
[2018-10-07] MEDS ORDERED: MAGNESIUM SULFATE 1 gm IVPB 1 GM/100 ML BAG IV ONE (08:57)
[2018-10-07] MEDS ORDERED: METHYLPREDNISOLONE 125 MG INJ ONE (08:57)
[2018-10-07 09:07] LABS: Absolute Lymphocytes (CBC) 1.2 K/uL (0.7-4.9); Basophils % 0.6 % (0-1.3); Lymphocytes % 17.2 % (15.3-44.8); MPV 7.1 fL (7.6-11.3); RBC Red Blood Cell Count 4.04 M/uL (4.33-5.43)
[2018-10-07 09:25] LABS: ALT/SGPT 18 U/L (12-78); AST/SGOT 18 U/L (15-37); Albumin 3.3 g/dL (3.4-5.0); Alkaline Phosphatase 58 U/L (45-117); BUN Blood Urea Nitrogen 20 mg/dL (7-18); Bicarbonate 32 mmol/L (21-32); Bilirubin Direct 0.2 mg/dL (0-0.2); Bilirubin Total 0.5 mg/dL (0.2-1.0); Glucose Level 93 mg/dL (74-106); Lipase 80 U/L (73-393); NT PRO-BNP 299 pg/mL (<450); Potassium 4.4 mmol/L (3.5-5.1); Protein, Total 7.2 g/dL (6.4-8.2); Sodium Level 136 mmol/L (136-145); Troponin (Emerg Dept Use Only) < 0.02 ng/mL (0.0-0.045)
--- NOTE | 2018-10-07 09:37 | RAD REPORT ---
EXAM DESCRIPTION: RAD - Chest Single View - 10/07/2018 9:20 am CLINICAL HISTORY: Dyspnea, decreased O2 saturation COMPARISON: September 24 TECHNIQUE: AP portable chest image was obtained 0914 hours . FINDINGS: Patient has a prominent baseline COPD pattern. The hyperexpanded left lung field shows no acute mass or infiltrate. Right lung volume is reduced compared to the prior study. This accentuates and already prominent baseline pattern. Chest findings are suspicious in the mid and lower right lung field 4 interstitial edema or infiltrate superimposed on the chronic pattern. No dense consolidation or mass. Heart and vasculature are normal. No measurable pleural effusion and no pneumothorax. No acute bony abnormality seen. No acute aortic findings suspected. IMPRESSION: Extensive baseline COPD. Right lung volume is reduced with accentuated lung markings. Interstitial pneumonia and interstitial edema are easily masked in this setting.
[2018-10-07] MEDS ORDERED: NA CHLORIDE 0.9% 500 ML ONE (09:47)
--- NOTE | 2018-10-07 10:35 | ER ---
Nurse's Notes [facility] Name: Elias Carlisle Age: 82 yrs Sex: Male : 1935 Arrival Date: 10/07/2018 Time: 08:33 Bed 4 Private MD: Quinton Lucio Diagnosis: Right lower lobe pneumonia;Chronic obstructive pulmonary disease with acute lower respiratory infection;Chronic obstructive pulmonary disease with (acute) exacerbation;Hypoxemia Presentation: 10/07 09:05 Presenting complaint: Child states: He woke up short of breath, O2 levels were 75% and jl7 HR 107. Transition of care: patient was not received from another setting of care. Onset of symptoms was October 07, 2018. Risk Assessment: Do you want to hurt yourself or someone else? Patient reports no desire to harm self or others. Initial Sepsis Screen: Does the patient meet any 2 criteria? RR > 20 per min. HR > 90 bpm. Yes Does the patient have a suspected source of infection? No. Patient's initial sepsis screen is negative. Care prior to arrival: None. 09:05 Method Of Arrival: Ambulatory jl7 09:05 Acuity: MARTIR 2 jl7 Historical: - Allergies: 09:05 INFLUENZA VIRUS VACCINES; tw2 - Home Meds: 09:05 Dimetapp [Active]; tw2 - PMHx: 09:05 COPD; macular degeneration; tw2 - Immunization history:: Adult Immunizations. - Social history:: Smoking status: . - Family history:: not pertinent. - Ebola Screening: : Patient denies travel to an Ebola-affected area in the 21 days before illness onset. - Hospitalizations: : No recent hospitalization is reported. Screenin:04 Abuse screen: Denies threats or abuse. Nutritional screening: No deficits noted. tw2 Tuberculosis screening: No symptoms or risk factors identified. Fall Risk Secondary diagnosis (15 points) impaired mobility. Assessment: 09:09 General: Appears distressed, Behavior is calm, cooperative, appropriate for age. Pain: jl7 Denies pain. Neuro: Level of Consciousness is awake, alert, obeys commands. Cardiovascular: Heart tones present Patient's skin is warm and dry. Respiratory: Airway is patent Respiratory effort is labored, with retractions, Respiratory pattern is symmetrical, tachypnea Breath sounds are diminished bilaterally. Breath sounds with wheezes bilaterally. EENT: Parent/caregiver reports the patient having Hard of hearing. Derm: Skin is pink, warm \T\ dry. 10:20 Reassessment: Patient appears in no apparent distress at this time. Patient and/or jl7 family updated on plan of care and expected duration. Pain level reassessed. Patient is alert, oriented x 3, equal unlabored respirations, skin warm/dry/pink. Patient states feeling better. Patient states symptoms have improved. 11:42 Reassessment: Pt laying in bed with eyes closed, respirations even and unlabored, no jl7 signs of distress noted. 12:30 Reassessment: Patient appears in no apparent distress at this time. Patient and/or jl7 family updated on plan of care and expected duration. Pain level reassessed. Patient is alert, oriented x 3, equal unlabored respirations, skin warm/dry/pink. 13:10 Reassessment: Attempted to call report, nurse unavailable. jl7 Vital Signs: 08:43 BP 186 / 88; Pulse 94; Resp 34 S; Temp 97.7(A); Pulse Ox 85% on R/A; jl7 08:50 Pulse Ox 100% on 50% Venturi mask; jl7 09:08 Pulse Ox 100% on BiPAP; jl7 09:30 BP 127 / 61; Pulse 85; Resp 22 S; Pulse Ox 100% on BiPAP; jl7 10:21 BP 132 / 59; Pulse 88; Resp 19 S; Pulse Ox 100% on BiPAP; jl7 10:45 BP 140 / 76; Pulse 86; Resp 19 S; Pulse Ox 100% on BiPAP; jl7 11:41 BP 132 / 64; Pulse 87; Resp 17 S; Pulse Ox 97% on BiPAP; jl7 12:30 BP 117 / 53; Pulse 81; Resp 16 S; Pulse Ox 96% on BiPAP; jl7 ED Course: 08:33 Patient arrived in ED. ag5 08:33 Quinton Lucio DO is Private Physician. ag5 08:37 Bed in low position. Call light in reach. Adult w/ patient. passport support manager on. Pulse tw2 ox on. NIBP on. Warm blanket given. 08:38 Alonso Malagon MD is Attending Physician. rn 08:55 EKG done, by remanufacturing technician. reviewed by Alonso Malagon MD. tc 08:55 Inserted saline lock: 22 gauge in right forearm, using aseptic technique. Blood jl7 collected. 08:55 Initial lab(s) drawn, by ms, sent to lab. First set of blood cultures drawn by me. jl7 09:04 Maryan Alexis RN is Primary Nurse. jl7 09:04 Arm band placed on. tw2 09:06 Triage completed. jl7 09:18 XRAY CXR (1 view) In Process Unspecified. EDMS 09:29 Second set of blood cultures drawn by me. jl7 10:33 Luis Aceves MD is Hospitalizing Provider. rn 13:31 No provider procedures requiring assistance completed. Patient admitted, IV remains in jl7 place. intact, No redness/swelling at site. Administered Medications: 09:00 Drug: SOLU-Medrol 125 mg Route: IVP; Site: right wrist; tw2 09:30 Follow up: Response: No adverse reaction; Marked relief of symptoms jl7 09:00 Drug: AtroVENT Aerosol 0.5 mg Route: Inhalation; jl7 09:20 Follow up: Response: No adverse reaction; Marked relief of symptoms jl7 09:05 Drug: Magnesium Sulfate 1 grams Route: IVPB; Infused Over: 1 hrs; Site: right forearm; jl7 10:05 Follow up: Response: No adverse reaction; Marked relief of symptoms; IV Status: jl7 Completed infusion; IV Intake: 100ml 09:15 Drug: Xopenex (3) 1.25 mg Route: Inhalation; jl7 09:30 Follow up: Response: No adverse reaction; Marked relief of symptoms jl7 09:49 Drug: NS 0.9% 500 ml Route: IV; Rate: bolus; Site: right forearm; jl7 10:22 Follow up: Response: No adverse reaction; IV Status: Completed infusion; IV Intake: jl7 500ml 10:41 Not Given (Wrong pharmacy order): Rocephin - (cefTRIAXone) 1 grams IVPB once over 30 jl7 mins; (mix in 50 mL NS) 11:20 Drug: Rocephin 1 grams Route: IV; Rate: calculated rate; Site: right forearm; jl7 11:23 Follow up: Response: No adverse reaction; IV Status: Completed infusion jl7 11:39 Drug: Zithromax 500 mg Route: IVPB; Infused Over: 1 hrs; Site: right forearm; jl7 12:39 Follow up: Response: No adverse reaction; IV Status: Completed infusion jl7 Intake: 10:05 IV: 100ml; Total: 100ml. jl7 10:22 IV: 500ml; Total: 600ml. jl7 Outcome: 10:34 Decision to Hospitalize by Provider. rn 13:31 Admitted to Tele accompanied by tech, family with patient, via stretcher, room 207, jl7 with oxygen, with chart, Report called to EFRAIN Cade 13:31 Condition: stable 13:31 Discharge instructions given to patient, family, Instructed on the need for admit, Demonstrated understanding of instructions. 13:32 Patient left the ED. jl7 Signatures: Dispatcher [employer] EDMS Alonso Malagon MD MD rn Callis, Tiffany, business risk analyst EKG [facility] Sade Mccloud RN RN tw2 Maryan Alexis RN RN jl7 Susana Mathis ag5 Corrections: (The following items were deleted from the chart) 10:22 10:21 Response: No adverse reaction; IV Status: Completed infusion jl7 jl7 11:25 11:24 Rocephin 1 grams IV at calculated rate in left jugular jl7 jl7
--- NOTE | 2018-10-07 10:36 | EDPHYS ---
Physician Documentation [facility] Name: Elias Carlisle Age: 82 yrs Sex: Male : 1935 Arrival Date: 10/07/2018 Time: 08:33 Bed 4 Private MD: Quinton Lucio ED Physician Alonso Malagon HPI: 10/07 08:47 This 82 yrs old Male presents to ER via Unassigned with complaints of Low rn Oxygen Levels. 08:47 The patient has shortness of breath at rest. Onset: The symptoms/episode began/occurred rn 2 week(s) ago. Duration: The symptoms are continuous. The patient's shortness of breath is aggravated by exertion, light activity. Severity of symptoms: At their worst the symptoms were moderate in the emergency department the symptoms are unchanged. The patient has experienced similar episodes in the past. The patient has been recently seen by a physician:. Family reports increased sob and oxygen requirement, s/p 10 day course of augmentin, was going to see ict help desk technician today but noticed oxygen level was in 40s. Also on steroids. Denies dark or bloody stool. + chronic intermittent diarrhea. Taking immodium. . Historical: - Allergies: 09:05 INFLUENZA VIRUS VACCINES; tw2 - Home Meds: 09:05 Dimetapp [Active]; tw2 - PMHx: 09:05 COPD; macular degeneration; tw2 - Immunization history:: Adult Immunizations. - Social history:: Smoking status: . - Family history:: not pertinent. - Ebola Screening: : Patient denies travel to an Ebola-affected area in the 21 days before illness onset. - Hospitalizations: : No recent hospitalization is reported. ROS: 08:47 Constitutional: Negative for fever, chills, and weight loss, Eyes: Negative for injury, rn pain, redness, and discharge, Cardiovascular: Negative for chest pain, palpitations, and edema, Respiratory: Negative for pleuritic chest pain, Abdomen/GI: Negative for abdominal pain, nausea, vomiting, diarrhea, and constipation, MS/Extremity: Negative for injury and deformity, Skin: Negative for injury, rash, and discoloration, Neuro: Negative for headache, numbness, tingling, and seizure. Exam: 08:47 Constitutional: Thin male, + moderate respiratory distress Head/Face: Normocephalic, rn atraumatic. Eyes: Pale conjunctivae ENT: dry MM, no stridor or oral swelling Cardiovascular: Tachycardic, regular, no murmur Respiratory: + moderate tachypnea with retractions, speaking 2 word sentences, diffuse exp wheezing bilaterally. Abdomen/GI: soft, non-tender MS/ Extremity: Pulses equal, no cyanosis. Neurovascular intact. Full, normal range of motion. Equal circumference. Neuro: Awake and alert, GCS 15, oriented to person, place, and situation. 09:10 ECG was reviewed by the Attending Physician. rn Vital Signs: 08:43 BP 186 / 88; Pulse 94; Resp 34 S; Temp 97.7(A); Pulse Ox 85% on R/A; jl7 08:50 Pulse Ox 100% on 50% Venturi mask; jl7 09:08 Pulse Ox 100% on BiPAP; jl7 09:30 BP 127 / 61; Pulse 85; Resp 22 S; Pulse Ox 100% on BiPAP; jl7 10:21 BP 132 / 59; Pulse 88; Resp 19 S; Pulse Ox 100% on BiPAP; jl7 10:45 BP 140 / 76; Pulse 86; Resp 19 S; Pulse Ox 100% on BiPAP; jl7 11:41 BP 132 / 64; Pulse 87; Resp 17 S; Pulse Ox 97% on BiPAP; jl7 12:30 BP 117 / 53; Pulse 81; Resp 16 S; Pulse Ox 96% on BiPAP; jl7 MDM: 08:38 Patient medically screened. rn 10:31 Medical screen evaluation completed. EMTALA emergency medical condition absent. ED rn course: Marked improvement on bipap, RR cut in half, improved oxygenation, wheezing improved, xray with questionable infiltrate RLL, will admit for failure outpt therapy, increased oxygen requirement, and RLL pneumonia. . 10:34 Differential diagnosis: Bronchitis Chronic Obstructive Pulmonary Disease Myocardial rn Infarction pneumonia, Pneumothorax pulmonary edema, reactive airway disease. Data reviewed: vital signs, nurses notes, lab test result(s), EKG, radiologic studies, plain films, and as a result, I will admit patient. 10/07 08:46 Order name: Blood Culture Adult (2) rn 10/07 08:46 Order name: BMP; Complete Time: 09:29 rn 10/07 08:46 Order name: CBC with Diff; Complete Time: 09: rn 10/07 08:46 Order name: Hepatic Function; Complete Time: 09:29 rn 10/07 08:46 Order name: Lipase; Complete Time: 09:29 rn 10/07 08:46 Order name: NT PRO-BNP; Complete Time: 09:29 rn 10/07 08:46 Order name: XRAY CXR (1 view); Complete Time: 10:18 rn 10/07 08:46 Order name: Troponin (emerg Dept Use Only); Complete Time: 09:29 rn 10/07 08:46 Order name: BIPAP rn 10/07 08:46 Order name: Lactate; Complete Time: 09:29 rn 10/07 12:01 Order name: ABG Arterial Blood Gas EDMS 10/07 08:46 Order name: EKG; Complete Time: 08:47 rn 10/07 08:46 Order name: Cardiac monitoring; Complete Time: 08:57 rn 10/07 08:46 Order name: EKG - Nurse/Tech; Complete Time: 08:57 rn 10/07 08:46 Order name: IV Saline Lock; Complete Time: 08:59 rn 10/07 08:46 Order name: Labs collected and sent; Complete Time: 08:59 rn 10/07 08:46 Order name: O2 Per Protocol; Complete Time: 08:57 rn 10/07 08:46 Order name: O2 Sat Monitoring; Complete Time: 08:57 rn EC:10 Rate is 100 beats/min. Rhythm is irregular. QRS [place] is Normal. VT interval is normal. rn QRS interval is normal. QT interval is normal. No Q waves. T waves are Normal. No ST changes noted. Clinical impression: NSR w/ Non-specific ST/T Changes and PACs. Interpreted by me. Reviewed by me. Administered Medications: 09:00 Drug: SOLU-Medrol 125 mg Route: IVP; Site: right wrist; tw2 09:30 Follow up: Response: No adverse reaction; Marked relief of symptoms 7 09:00 Drug: AtroVENT Aerosol 0.5 mg Route: Inhalation; jl7 09:20 Follow up: Response: No adverse reaction; Marked relief of symptoms 7 09:05 Drug: Magnesium Sulfate 1 grams Route: IVPB; Infused Over: 1 hrs; Site: right forearm; jl7 10:05 Follow up: Response: No adverse reaction; Marked relief of symptoms; IV Status: jl7 Completed infusion; IV Intake: 100ml 09:15 Drug: Xopenex (3) 1.25 mg Route: Inhalation; jl7 09:30 Follow up: Response: No adverse reaction; Marked relief of symptoms jl7 09:49 Drug: NS 0.9% 500 ml Route: IV; Rate: bolus; Site: right forearm; jl7 10:22 Follow up: Response: No adverse reaction; IV Status: Completed infusion; IV Intake: jl7 500ml 10:41 Not Given (Wrong pharmacy order): Rocephin - (cefTRIAXone) 1 grams IVPB once over 30 jl7 mins; (mix in 50 mL NS) 11:20 Drug: Rocephin 1 grams Route: IV; Rate: calculated rate; Site: right forearm; jl7 11:23 Follow up: Response: No adverse reaction; IV Status: Completed infusion jl7 11:39 Drug: Zithromax 500 mg Route: IVPB; Infused Over: 1 hrs; Site: right forearm; jl7 12:39 Follow up: Response: No adverse reaction; IV Status: Completed infusion jl7 Disposition: 10:31 Critical Care:. rn Disposition: 10/07/18 10:34 Hospitalization ordered by Luis Aceves for Inpatient Admission. Preliminary diagnosis are Right lower lobe pneumonia, Chronic obstructive pulmonary disease with acute lower respiratory infection, Chronic obstructive pulmonary disease with (acute) exacerbation, Hypoxemia. - Bed requested for Telemetry/MedSurg (Inpatient). - Status is Inpatient Admission. jl7 - Condition is Stable. - Problem is an ongoing problem. - Symptoms have improved. UTI on Admission? No Critical care time excluding procedures: 10:31 Critical care time: Bedside Care: 25 minutes, Consultation: 5 minutes, Family rn Intervention: 5 minutes. Total time: 35 minutes Signatures: Dispatcher [employer] EDJuany Garcia Roman, MD MD rn Wise, Tara, RN RN tw2 Maryan Alexis RN RN jl7 Corrections: (The following items were deleted from the chart) 10:34 10:34 Hospitalization Ordered by Luis Aceves MD for Inpatient Admission. Preliminary rn diagnosis is Right lower lobe pneumonia; Chronic obstructive pulmonary disease with acute lower respiratory infection; Chronic obstructive pulmonary disease with (acute) exacerbation. Bed requested for Telemetry/MedSurg (Inpatient). Status is Inpatient Admission. Condition is Stable. Problem is an ongoing problem. Symptoms have improved. UTI on Admission? No. rn 12:29 10:34 10/07/2018 10:34 Hospitalization Ordered by Luis Aceves MD for Inpatient bd Admission. Preliminary diagnosis is Right lower lobe pneumonia; Chronic obstructive pulmonary disease with acute lower respiratory infection; Chronic obstructive pulmonary disease with (acute) exacerbation; Hypoxemia. Bed requested for Telemetry/MedSurg (Inpatient). Status is Inpatient Admission. Condition is Stable. Problem is an ongoing problem. Symptoms have improved. UTI on Admission? No. rn 13:32 12:29 10/07/2018 10:34 Hospitalization Ordered by Luis Aceves MD for Inpatient jl7 Admission. Preliminary diagnosis is Right lower lobe pneumonia; Chronic obstructive pulmonary disease with acute lower respiratory infection; Chronic obstructive pulmonary disease with (acute) exacerbation; Hypoxemia. Bed requested for Telemetry/MedSurg (Inpatient). Status is Inpatient Admission. Condition is Stable. Problem is an ongoing problem. Symptoms have improved. UTI on Admission? No. bd
[2018-10-07] MEDS ORDERED: CEFTRIAXONE/SWI 1gm 1 GM/10 ML SYR ONE (11:09)
--- NOTE | 2018-10-07 11:19 | EKG ---
Test Date: 2018-10-07 Test Time: 08:48:00 Casing Worker: ANITA MEASUREMENT RESULTS: Intervals: Rate: 100 AZ: 150 QRSD: 102 QT: 338 QTc: 436 [place]: P: 81 AZ: 150 QRS: 41 T: 78 INTERPRETIVE STATEMENTS: Sinus rhythm with premature supraventricular complexes Incomplete right bundle branch block Borderline ECG Compared to ECG 06/16/2018 15:03:56 Incomplete right bundle-branch block now present Left-axis deviation no longer present Right bundle-branch block no longer present Electronically Signed On 10-07-18 11:18:39 CDT by Ja Hinds
[2018-10-07] MEDS ORDERED: AZITHROMYCIN IV 500 MG in NA CHLORIDE 0.9% 250 ML IVPB ONE (11:30)
[2018-10-07 12:24] LABS: Blood Gas Oxyhemoglobin 91.8 % (94-97); Blood O2 Saturation 93.5 % (92-98.5)
[2018-10-07] MEDS: ALBUTEROL 2.5 MG/3 ML NEB SOL NEB SCH ×2 (14:30→20:00)
[2018-10-07] MEDS: IPRATROPIUM BROM 0.5MG/2.5ML NEB SCH ×2 (14:30→20:00)
[2018-10-07] MEDS: ENOXAPARIN 40 MG/0.4 ML SQ SCH (14:46)
--- NOTE | 2018-10-07 15:47 | P.HP ---
Certification for Inpatient Patient admitted to: Inpatient With expected LOS: >2 Midnights Practitioner: I am a practitioner with admitting privileges, knowledge of patient current condition, hospital course, and medical plan of care. Services: Services provided to patient in accordance with Admission requirements found in Title 42 Section 412.3 of the Code of Federal Regulations Patient History Date of Service: 10/07/18 Reason for admission: Shortness of breath History of Present Illness: The patient is an 82-year-old male with past medical history of COPD, on 4L home oxygen, admitted for shortness of breath. Per patient, he has been getting worse shortness of breath, worse with even mild exertion for the past few days. Family also reported increased shortness of breath and increased oxygen requirement. He did see his primary care physician and was given a 10 day course of Augmentin. 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 The patient denies any cough, sputum production, ill contacts, fevers or chills. In the ER, his blood pressure was 186/88, heart rate of 94, respiratory rate 34 , afebrile at 97.7, 85% on room air. Labs were fairly unremarkable. Chest x- ray showed baseline COPD along with suspicious while/lower right lung field pneumonia. He was placed on BiPAP, which did help his symptoms improved a little bit. He was given steroids, breathing treatments in the ER along with IV antibiotics. His symptoms seemed to continue to be worse and therefore decision was made to admit. At the time of my exam, patient was on 4 L nasal cannula oxygen, satting 92% with improved work of breathing. He also stated he felt better. Allergies Influen Allergy (Uncoded 10/20/16 22:28) Unknown INFLUENZA Allergy (Uncoded 12/19/16 17:10) Unknown Home medications list reviewed: Yes Home Medications: Albuterol Sulfate [Albuterol Sulfate 0.083% Neb Soln] 2.5 mg IH QIDP PRN Albuterol Sulfate [Ventolin Hfa] 2 puff IH DAILYPRN PRN 06/16/18 Cetirizine HCl 10 mg PO DAILY 06/16/18 Guaifenesin/Dextromethorphan [Mucinex Dm ER 600-30 mg Tablet] 1 each PO DAILY Mirtazapine 7.5 mg PO BEDTIME 06/16/18 Montelukast [Singulair*] 10 mg PO DAILY 06/16/18 Multivit-Min/FA/Lycopen/Lutein [Centrum Silver Tablet] 1 tab PO DAILY 06/16/18 Vit C/Jasmeet AC/Lut/Copper/Znox [Preservision Lutein Softgel] 1 each PO DAILY 08/29 Azithromycin Tab [Zithromax*] 250 mg PO DAILY #4 tab 06/18/18 predniSONE [Deltasone*] 10 mg PO BID #14 tab 06/18/18 - Past Medical/Surgical History Has patient received pneumonia vaccine in the past: No Diabetic: No -: COPD -: [employer]obb[employer] abuse -: 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 Uses a walker at times when going outside. The patient is a former every day smoker, has a long history of chronic alcohol use. The patient is . - Family History Mother -: Cancer - Social History Smoking Status: Former smoker Alcohol use: Yes CD- Drugs: No Caffeine use: No Review of Systems 10-point ROS is otherwise unremarkable Physical Examination - Vital Signs Temperature: 98.2 F Blood Pressure: 149/69 Pulse: 96 Respirations: 23 Pulse Ox (%): 96 - Physical Exam General: Alert, In no apparent distress, Oriented x3 HEENT: Atraumatic, PERRLA, Mucous membr. moist/pink, EOMI, Sclerae nonicteric Neck: Supple, 2+ carotid pulse no bruit, No LAD, Without JVD or thyroid abnormality Respiratory: Diminished, Crackles/rales, Other (Tachypneic) Cardiovascular: Regular rate/rhythm, Normal S1 S2 Gastrointestinal: Normal bowel sounds, No tenderness Musculoskeletal: No tenderness Integumentary: No rashes Neurological: Normal gait, Normal speech, Normal strength at 5/5 x4 extr, Normal tone, Normal affect Lymphatics: No axilla or inguinal lymphadenopathy - Studies Laboratory Data (last 24 hrs) 10/07/18 08:55: WBC 7.0, Hgb 12.5 L, Hct 38.0 L, Plt Count 253 08/27/19 08:55: Sodium 136, Potassium 4.4, BUN 20 H, Creatinine 0.87, Glucose 93 , Total Bilirubin 0.5, AST 18, ALT 18, Alkaline Phosphatase 58, Lipase 80 Assessment and Plan - Problems (Diagnosis) (1) Acute and chronic respiratory failure Current Visit: Yes Status: Acute Plan: Acute on chronic respiratory failure likely secondary to PNA vs worsening fibrotic disease vs COPD -We will provide O2 and Bi-PAP as needed. Wean as tolerated. -pulmonology consulted, awaiting recommendation Qualifiers: Respiratory failure complication: hypoxia and hypercapnia Qualified Code(s) : J96.21 - Acute and chronic respiratory failure with hypoxia; J96.22 - Acute and chronic respiratory failure with hypercapnia (2) Pneumonia Current Visit: Yes Status: Acute Plan: Right middle lobe pneumonia. -We will start on azithromycin and Rocephin. -repeat chest x-ray tomorrow -Obtain blood cultures and sputum cultures. -Continue with supplemental oxygen. -no evidence of sepsis at this time. Will continue to monitor. Qualifiers: Pneumonia type: due to unspecified organism Laterality: right Lung location: lower lobe of lung Qualified Code(s): J18.1 - Lobar pneumonia, unspecified organism (3) COPD exacerbation Onset Date: 10/22/16 Current Visit: No Status: Acute Plan: -We will start on nebulizer treatments and IV steroids. -The patient currently requiring supplemental oxygen. We will continue to monitor for improvement. 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 We will obtain physical therapy once the patient is more stabilized. May need group home facility versus PT with home health to be set up on discharge. We will consult Social Work. - Advance Directives Does patient have a Living Will: Yes Does patient have a Durable POA for Healthcare: Yes
[2018-10-07] MEDS: METHYLPREDNISOLONE 40 MG INJ IV SCH (16:37)
[2018-10-07 18:30] LABS: Urine Appearance CLEAR; Urine Bilirubin NEGATIVE (NEG); Urine Blood NEGATIVE (NEG); Urine Color YELLOW; Urine Glucose 3+ (NEG); Urine Protein NEGATIVE (NEG); Urine Specific Gravity 1.025 (1.005-1.030); Urine Urobilinogen 0.2 mg/dL (0.2-1.0); Urine pH 5.5 (5.0-7.0)
[2018-10-07 20:19] LABS: Urine Microscopic Reflex ORDER UMIC
[2018-10-07 21:06] LABS: Urine Bacteria <20 /HPF (NONE SEEN); Urine Culture Reflex Order REFLEXED; Urine RBC <5 /HPF (NONE SEEN); Urine Trichomonas PRESENT (NONE SEEN)
[2018-10-07] MEDS: CEFTRIAXONE/SWI 1gm 1 GM/10 ML SYR IVP SCH (22:19)
[2018-10-08] MEDS: METHYLPREDNISOLONE 40 MG INJ IV SCH ×2 (00:09→07:50)
[2018-10-08] MEDS: ALBUTEROL 2.5 MG/3 ML NEB SOL NEB SCH ×4 (02:00→20:00)
[2018-10-08] MEDS: IPRATROPIUM BROM 0.5MG/2.5ML NEB SCH ×4 (02:00→20:00)
[2018-10-08 05:50] LABS: Absolute Lymphocytes (CBC) 0.6 K/uL (0.7-4.9); Hematocrit 35.2 % (39.6-49.0); Lymphocytes % 10.4 % (15.3-44.8); MPV 7.3 fL (7.6-11.3); RBC Red Blood Cell Count 3.77 M/uL (4.33-5.43)
[2018-10-08 06:02] LABS: ALT/SGPT 14 U/L (12-78); AST/SGOT 17 U/L (15-37); Albumin 3.1 g/dL (3.4-5.0); Alkaline Phosphatase 48 U/L (45-117); BUN Blood Urea Nitrogen 20 mg/dL (7-18); Bicarbonate 29 mmol/L (21-32); Bilirubin Total 0.3 mg/dL (0.2-1.0); Glucose Level 135 mg/dL (74-106); Magnesium 2.2 mg/dL (1.8-2.4); Potassium 4.7 mmol/L (3.5-5.1); Protein, Total 6.7 g/dL (6.4-8.2); Sodium Level 136 mmol/L (136-145)
[2018-10-08] MEDS: ENOXAPARIN 40 MG/0.4 ML SQ SCH (07:50)
[2018-10-08] MEDS: CEFTRIAXONE/SWI 1gm 1 GM/10 ML SYR IVP SCH (07:50)
[2018-10-08] MEDS ORDERED: ARFORMOTEROL TARTRATE 15 MCG/2 ML VIAL.NEB NEB SCH (08:45)
--- NOTE | 2018-10-08 08:49 | P.CNS ---
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 [place] has been sick for the past 2 weeks with progressive shortness of breath and was treated with a course of Augmentin and steroids initially improved and became worse again became unresponsive yesterday and appeared in the hospital is currently on BiPAP alert responsive cooperative suspect that he has advanced age COPD and difficulty using inhalers at home currently on albuterol nebulizer Allergies Influen Allergy (Uncoded 10/20/16 22:28) Unknown INFLUENZA Allergy (Uncoded 12/19/16 17:10) Unknown Home Medications: Albuterol Sulfate [Ventolin Hfa] 2 puff IH TID 06/16/18 Cetirizine HCl 10 mg PO DAILY 06/16/18 Mirtazapine 7.5 mg PO BEDTIME 06/16/18 Montelukast [Singulair*] 10 mg PO DAILY 06/16/18 Umeclidinium Brm/Vilanterol Tr [Anoro Ellipta 62.5-25 Mcg INH] 1 puff IN DAILY 10/07/18 - Past Medical/Surgical History Diabetic: No -: COPD -: Tobb[employer] abuse -: 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 Uses a walker at times when going outside. The patient is a former every day smoker, has a long history of chronic alcohol use. The patient is . - Family History Mother Medical History: Cancer - Social History Alcohol use: Yes CD- Drugs: No Caffeine use: No Review of Systems is unable to be obtained Physical Examination Temp Pulse Resp BP Pulse Ox 97.3 F 71 18 169/76 H 97 10/08/18 04:00 10/08/18 04:00 10/08/18 04:00 10/08/18 04:00 10/08/18 04:00 General: Alert, Mild distress Respiratory: Clear to auscultation bilaterally, Diminished Cardiovascular: No edema, Regular rate/rhythm Gastrointestinal: Normal bowel sounds, Soft and benign Laboratory Data (last 24 hrs) 10/07/18 08:55: WBC 7.0, Hgb 12.5 L, Hct 38.0 L, Plt Count 253 10/07/18 08:55: Sodium 136, Potassium 4.4, BUN 20 H, Creatinine 0.87, Glucose 93 , Total Bilirubin 0.5, AST 18, ALT 18, Alkaline Phosphatase 58, Lipase 80 - Problems (1) COPD exacerbation Onset Date: 10/22/16 Current Visit: No Status: Acute Plan: Patient is 82 years of age admitted with COPD exacerbation chest x-ray suggestive of advanced age COPD continue with bronchodilators steroids titrate sat to 90% on nasal cannula oxygen repeat blood gases patient has had a course of Augmentin and steroids change to p.o. levofloxacin labs reviewed white count is normal mild hypercarbia I have added low-dose theophylline change to p.o. prednisone sputum cultures pending chest x-ray some haziness on the right side
[2018-10-08] MEDS ORDERED: AZITHROMYCIN IV 250 MG in NA CHLORIDE 0.9% 250 ML IVPB SCH (09:00)
--- NOTE | 2018-10-08 09:43 | RAD REPORT ---
EXAM DESCRIPTION: Moises Pa And Lat (2 Views)10/08/2018 9:36 am CLINICAL HISTORY: Respiratory failure COMPARISON: October 07, 2018 FINDINGS: The lungs are hyperaerated. Chronic appearing lung opacities are noted. The lungs appear clear of acute infiltrate. The heart is normal size IMPRESSION: COPD without visualization acute abnormality
[2018-10-08] MEDS: predniSONE 20 MG TAB PO SCH ×2 (09:45→20:53)
[2018-10-08] MEDS: levoFLOXacin 500 MG TAB PO SCH (09:45)
[2018-10-08] MEDS: THEOPHYLLINE SR 100 MG TAB PO SCH (09:45)
[2018-10-08] MEDS: ARFORMOTEROL TARTRATE 15 MCG/2 ML VIAL.NEB NEB SCH ×2 (10:00→20:00)
[2018-10-08 10:34] LABS: Arterial Blood Carboxyhemoglob 1.3 % (0-1.5); Blood Gas Oxyhemoglobin 89.3 % (94-97); Blood O2 Saturation 91.2 % (92-98.5)
--- NOTE | 2018-10-08 11:24 | P.PN ---
Subjective Date of Service: 10/08/18 Chief Complaint: Shortness of breath Subjective: Improving Patient seen and examined at bedside. family at bedside. Chart reviewed and case discussed with nursing staff. No acute events noted overnight. Patient reports improvement this morning, no concerns or complaints this morning. He has now off BiPAP. Review of Systems 10-point ROS is otherwise unremarkable Physical Examination - Vital Signs Temperature: 97.3 F Blood Pressure: 169/76 Pulse: 71 Respirations: 18 Pulse Ox (%): 97 - Physical Exam General: Alert, In no apparent distress, Cachectic HEENT: Atraumatic, PERRLA, EOMI Neck: Supple, JVD not distended Respiratory: Clear to auscultation bilaterally, Dull, Crackles/rales Cardiovascular: Regular rate/rhythm, Normal S1 S2 Gastrointestinal: Normal bowel sounds, No tenderness Musculoskeletal: No tenderness Integumentary: No rashes Neurological: Normal speech, Normal tone, Normal affect Lymphatics: No axilla or inguinal lymphadenopathy Assessment And Plan - Current Problems (Diagnosis) (1) Acute and chronic respiratory failure Current Visit: Yes Status: Acute Plan: Acute on chronic respiratory failure likely secondary to PNA vs worsening fibrotic disease vs COPD - improving -We will provide O2 and Bi-PAP as needed. Wean as tolerated. Titrate oxygen saturation of 90% -pulmonology consulted, recommendations appreciated Qualifiers: Respiratory failure complication: hypoxia and hypercapnia Qualified Code(s) : J96.21 - Acute and chronic respiratory failure with hypoxia; J96.22 - Acute and chronic respiratory failure with hypercapnia (2) Pneumonia Current Visit: Yes Status: Acute Plan: Right middle lobe pneumonia. -IV antibiotics converted to oral antibiotics at this time. -repeat chest x-ray with COPD changes, no acute abnormalities. -pending blood cultures and sputum cultures. -Continue with supplemental oxygen. Titrate to 90% sat -no evidence of sepsis at this time. Will continue to monitor. Qualifiers: Pneumonia type: due to unspecified organism Laterality: right Lung location: lower lobe of lung Qualified Code(s): J18.1 - Lobar pneumonia, unspecified organism (3) COPD exacerbation Onset Date: 10/22/16 Current Visit: No Status: Acute Plan: Improving -continue nebulizer treatments. -IV steroids converted to oral steroids. -The patient currently requiring supplemental oxygen. 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 Physical therapy consulted. May need retirement facility versus PT with home health to be set up on discharge. We will consult Social Work.
[2018-10-08] MEDS ORDERED: PNEUMOCOCCAL VACCINE 0.5 ML IMVAC ONE (14:00)
[2018-10-08] MEDS: ENSURE ENLIVE 237 ML CAN PO SCH (20:57)
[2018-10-09] MEDS: IPRATROPIUM BROM 0.5MG/2.5ML NEB SCH ×2 (02:00→08:39)
[2018-10-09] MEDS: ALBUTEROL 2.5 MG/3 ML NEB SOL NEB SCH ×2 (02:00→08:39)
[2018-10-09 06:15] LABS: Absolute Lymphocytes (CBC) 0.5 K/uL (0.7-4.9); Basophils % 0.1 % (0-1.3); Hematocrit 33.4 % (39.6-49.0); MPV 7.6 fL (7.6-11.3)
[2018-10-09 06:40] LABS: ALT/SGPT 15 U/L (12-78); AST/SGOT 18 U/L (15-37); Albumin 2.7 g/dL (3.4-5.0); Alkaline Phosphatase 44 U/L (45-117); BUN Blood Urea Nitrogen 23 mg/dL (7-18); Bicarbonate 31 mmol/L (21-32); Bilirubin Total 0.3 mg/dL (0.2-1.0); Glucose Level 131 mg/dL (74-106); Potassium 4.5 mmol/L (3.5-5.1); Sodium Level 140 mmol/L (136-145)
[2018-10-09 07:37] LABS: Blood Morphology Comment NOT SEEN (NOT SEEN); Platelet Estimate ADEQ
[2018-10-09] MEDS: ARFORMOTEROL TARTRATE 15 MCG/2 ML VIAL.NEB NEB SCH (08:39)
[2018-10-09] MEDS: predniSONE 20 MG TAB PO SCH (08:42)
[2018-10-09] MEDS: ENOXAPARIN 40 MG/0.4 ML SQ SCH (08:42)
[2018-10-09] MEDS: levoFLOXacin 500 MG TAB PO SCH (08:43)
[2018-10-09] MEDS: THEOPHYLLINE SR 100 MG TAB PO SCH (08:43)
[2018-10-09] MEDS: ENSURE ENLIVE 237 ML CAN PO SCH (08:43)
--- NOTE | 2018-10-09 12:01 | P.PN ---
Subjective Date of Service: 10/09/18 Chief Complaint: COPD Subjective: Improving (Patient is doing much better shortness of breath has improved) Review of Systems General: Weakness Respiratory: Shortness of Breath Physical Examination - Vital Signs Temperature: 98 F Blood Pressure: 174/76 Pulse: 100 Respirations: 20 Pulse Ox (%): 93 - Physical Exam General: Alert, Oriented x3 Neck: Supple Respiratory: Diminished, Expiratory wheezes Cardiovascular: No edema, Normal pulses Assessment & Plan - Problems (Diagnosis) (1) COPD exacerbation Onset Date: 10/22/16 Current Visit: No Status: Acute Plan: Patient admitted with COPD exacerbation discharged home on prednisone 10 mg twice a day for 15 days Dc all antibiotics there is no evidence of infection patient was recently treated with a course of Augmentin with no relief agree with low-dose the offline vital signs are all stable oxygenation satisfactory cultures negative labs no evidence of infection
--- NOTE | 2018-10-11 12:07 | P.DS ---
Admission Date: 10/07/18 Discharge Date: 10/09/18 Disposition: ROUTINE DISCHARGE Discharge Condition: FAIR Reason for Admission: COPD Consultations: Pulmonology - Problems (1) Acute and chronic respiratory failure Status: Acute Qualifiers: Respiratory failure complication: hypoxia and hypercapnia Qualified Code(s) : J96.21 - Acute and chronic respiratory failure with hypoxia; J96.22 - Acute and chronic respiratory failure with hypercapnia (2) Pneumonia Status: Acute Qualifiers: Pneumonia type: due to unspecified organism Laterality: right Lung location: lower lobe of lung Qualified Code(s): J18.1 - Lobar pneumonia, unspecified organism (3) COPD exacerbation Onset Date: 10/22/16 Status: Acute (4) Fibrotic lung diseases Status: Chronic (5) Nicotine dependence Status: Chronic Qualifiers: Nicotine product type: cigarettes Substance use status: in remission Qualified Code(s): F17.211 - Nicotine dependence, cigarettes, in remission (6) Failure to thrive Status: Chronic Qualifiers: Failure to thrive age range: in adult Qualified Code(s): R62.7 - Adult failure to thrive Brief History of Present Illness: The patient is an 82-year-old male with past medical history of COPD, on 4L home oxygen, admitted for shortness of breath. Per patient, he has been getting worse shortness of breath, worse with even mild exertion for the past few days. Family also reported increased shortness of breath and increased oxygen requirement. He did see his primary care physician and was given a 10 day course of Augmentin. He was going to go see his floor attendant today but family notices oxygen level was in the 40s, therefore brought into the emergency room instead. The patient denies any cough, sputum production, ill contacts, fevers or chills. In the ER, his blood pressure was 186/88, heart rate of 94, respiratory rate 34 , afebrile at 97.7, 85% on room air. Labs were fairly unremarkable. Chest x- ray showed baseline COPD along with suspicious while/lower right lung field pneumonia. He was placed on BiPAP, which did help his symptoms improved a little bit. He was given steroids, breathing treatments in the ER along with IV antibiotics. His symptoms seemed to continue to be worse and therefore decision was made to admit. At the time of my exam, patient was on 4 L nasal cannula oxygen, satting 92% with improved work of breathing. He also stated he felt better. Hospital Course: Patient was admitted for acute on chronic respiratory failure likely secondary to pneumonia versus worsening fibrotic disease versus COPD. He was placed on oxygen and BiPAP as needed, weaned to his home oxygen level. Pulmonology was consulted. He was also started on IV antibiotics, which was converted to oral antibiotics on discharge. His cultures remain negative. He was also provided with nebulizer treatments and IV steroids, which was converted to oral steroids upon discharge. Patient does have a floor attendant out of town, who he will follow up with after discharge P Patient refused any kind of facility or home health. He also refused to work with physical therapy here states that he does not need any kind of Physical therapy at this time. He does use a walker at home. He was educated on fall risks but states that he would rather go home and again he refused home health or a [facility] correction facility placement. He was then cleared for discharge per pulmonology. His diagnoses and treatment plan was explained to him, all questions were answered and he verbalized understanding. Overall, patient does have a fairly poor prognosis. He was then discharged home in a stable manner. He will follow up with his floor attendant in a week after being discharged. Vital Signs/Physical Exam: Temp Pulse Resp BP Pulse Ox 98 F 100 H 20 174/76 H 93 10/09/18 12:10/09/18 12:10/09/18 12:01 10/09/18 12:10/09/18 12:01 General: Alert, In no apparent distress, Oriented x3, Cachectic, Other (Elderly) HEENT: Atraumatic, PERRLA, EOMI Neck: Supple, JVD not distended Respiratory: Clear to auscultation bilaterally, Normal air movement Cardiovascular: Regular rate/rhythm, Normal S1 S2 Gastrointestinal: Normal bowel sounds, No tenderness Musculoskeletal: No tenderness Integumentary: No rashes Neurological: Normal speech, Normal tone, Normal affect Lymphatics: No axilla or inguinal lymphadenopathy Laboratory Data at Discharge: WBC 10.9 K/uL (4.3-10.9) D 10/09/18 05:34 Hgb 11.4 g/dL (13.6-17.9) L 10/09/18 05:34 Hct 33.4 % (39.6-49.0) L 10/09/18 05:34 Plt Count 248 K/uL (152-406) 10/09/18 05:34 Sodium 140 mmol/L (136-145) 10/09/18 05:34 Potassium 4.5 mmol/L (3.5-5.1) 10/09/18 05:34 BUN 23 mg/dL (7-18) H 10/09/18 05:34 Creatinine 0.80 mg/dL (0.55-1.3) 10/09/18 05:34 Glucose 131 mg/dL (74-106) H 10/09/18 05:34 Magnesium 2.2 mg/dL (1.8-2.4) 10/08/18 05:25 Total Bilirubin 0.3 mg/dL (0.2-1.0) 10/09/18 05:34 AST 18 U/L (15-37) 10/09/18 05:34 ALT 15 U/L (12-78) 10/09/18 05:34 Alkaline Phosphatase 44 U/L (45-117) L 10/09/18 05:34 Lipase 80 U/L (73-393) 10/07/18 08:55 Home Medications: Albuterol Sulfate [Ventolin Hfa] 2 puff IH TID 06/16/18 Cetirizine HCl 10 mg PO DAILY 06/16/18 Mirtazapine 7.5 mg PO BEDTIME 06/16/18 Montelukast [Singulair*] 10 mg PO DAILY 06/16/18 Umeclidinium Brm/Vilanterol Tr [Anoro Ellipta 62.5-25 Mcg INH] 1 puff IN DAILY 10/07/18 Arformoterol Tartrate [Brovana] 15 mcg NEB BIDRESP #1 vial.neb 10/09/18 Theophylline [Rashad-Dur*] 200 mg PO DAILY #30 tab 10/09/18 levoFLOXacin [Levaquin*] 500 mg PO DAILY #5 tab 10/09/18 predniSONE [Prednisone*] 20 mg PO BID #14 tab 10/09/18 New Medications: Arformoterol Tartrate [Brovana] 15 mcg NEB BIDRESP #1 vial.neb levoFLOXacin [Levaquin*] 500 mg PO DAILY #5 tab predniSONE [Prednisone*] 20 mg PO BID #14 tab Theophylline [Rashad-Dur*] 200 mg PO DAILY #30 tab Patient Discharge Instructions: Please follow up with your primary care physician in 2-3 days. Please follow up with Pulmonology in 2 weeks. Return to the Emergency room for worsening symptoms. Diet: AHA Activity: Ad diony Followup: Dejan Mtz MD [ACTIVE - CAN ADMIT] - Quinton Lucio DO [Primary Care Provider] - Time spent managing pt's care (in minutes): 55
== END 2018-10-09 13:45 | disposition home or self-care (01) | DRG 189 ==
LOC: ER 08:32 → ERHOLD 11:55 → 2ND 13:26
PROVIDERS: ADMIT Family Medicine; ATTEND Family Medicine
PROC: 5A09457 Assistance with Respiratory Ventilation, 24-96 Consecutive Hours, Continuous Positive Airway Pressure (ICD-10-PCS; principal; 2018-10-07)
DX: J96.22 Acute and chronic respiratory failure with hypercapnia (principal); J18.9 Pneumonia, unspecified organism; J44.1 Chronic obstructive pulmonary disease with (acute) exacerbation; Z68.1 Body mass index [BMI] 19.9 or less, adult; J44.0 Chronic obstructive pulmonary disease with (acute) lower respiratory infection; R64 Cachexia; J96.21 Acute and chronic respiratory failure with hypoxia; J84.10 Pulmonary fibrosis, unspecified; R62.7 Adult failure to thrive; Z88.7 Allergy status to serum and vaccine; F17.211 Nicotine dependence, cigarettes, in remission; Z99.81 Dependence on supplemental oxygen
CPT/HCPCS: 36415; 71045; 71046; 80048; 80053; 80076; 81003; 81015; 82805; 83605; 83690; 83735; 83880; 84484; 85025; 87040; 87070; 87086; 87088; 87205; 93005; 94640; 94660; 94760; 99285; J0456; J0696; J1650; J2920; J2930; J3475; J7512; J7605

== ENCOUNTER 2019-01-30 11:12 | Emergency (ER) | payer OTHER ==
--- OUTSIDE RECORDS SUMMARY | 2019-01-30 11:15 | XMS REPORT ---
:1935 Author Organization [employer] Care Team Providers Name Role Phone Naveed Quinton Provider Role Unavailable Allergies, Adverse Reactions, Alerts Substance Reaction Event Type N.K.D.A. Info Not Available Non Drug Allergy Problems Problem Type Condition Code Onset Dates Condition Status Problem Macular degeneration, unspecified H35.30 Active laterality, unspecified type Problem Tobacco use disorder F17.200 Active Problem Chronic obstructive pulmonary J44.9 Active disease, unspecified COPD type Problem Allergic rhinitis, unspecified J30.9 Active seasonality, unspecified trigger Assessment Malaise and fatigue R53.81 Active Problem Cerumen impaction H61.20 Active Assessment Weakness R53.1 Active Assessment Uncomplicated alcohol abuse F10.10 Active Problem Failure to thrive in adult R62.7 Active Problem Anorexia R63.0 Active Problem Malaise and fatigue R53.81 Active Problem Weakness R53.1 Active Problem Malnutrition E46 Active Assessment Malnutrition E46 Active Assessment 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, in partial remission Assessment Anorexia R63.0 Active Assessment Chronic diarrhea K52.9 Active Assessment Hospital discharge follow-up Z09 Active Assessment Allergic rhinitis, unspecified J30.9 Active seasonality, unspecified trigger Problem Need for assistance due to unsteady R26.89 Active gait Assessment Failure to thrive in adult R62.7 Active Assessment Chronic obstructive pulmonary J44.9 Active disease, unspecified COPD type Problem 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, in partial remission Medications Medication Code Code Instructions Start End Status Dosage System Date Date Montelukast [facility] 54590969714 10 MG Orally Active 1 tablet Sodium Once a day Montelukast ND 61419342565 10 MG Orally Active 1 tablet Sodium Once a day Brovana [facility] 51701940207 15 MCG/2ML Active 2 ml Inhalation Twice a day Albuterol-Ipratr NDC 0 2.5-0.5 MG/3ML Active 3 ml opium Inhalation every 6 hrs Theophylline ER NDC 84337321532 200 MG Orally Nov 06Feb 04, Active 1 tablet every 12 hrs 2018 2018 Ventolin HFA [facility] [id number] 108 (90 Base) Active 2 puffs as MCG/ACT needed Inhalation every 6 hrs PRN Cough, Shortness of breath, wheezing Mirtazapine [facility] 56220700000 7.5 MG Orally Active 1 tablet Once a day at bedtime Cetirizine HCl [facility] 92593833975 10 MG Orally Active 1 tablet Once a day Results No Known Results Summary Purpose [employer] Submission
--- OUTSIDE RECORDS SUMMARY | 2019-01-30 11:15 | XMS REPORT ---
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
--- OUTSIDE RECORDS SUMMARY | 2019-01-30 11:15 | XMS REPORT ---
[...] unspecified J30.9 Active seasonality, unspecified trigger Assessment Weakness R53.1 Active Problem Cerumen impaction H61.20 Active Assessment Uncomplicated alcohol abuse F10.10 Active Assessment Failure to thrive in adult R62.7 Active Problem Failure to thrive in adult R62.7 Active Problem Anorexia R63.0 Active Problem Malaise and fatigue R53.81 Active Problem Weakness R53.1 Active Problem Malnutrition E46 Active Assessment Chronic diarrhea K52.9 Active Assessment Malnutrition E46 Active Assessment Malaise and fatigue R53.81 Active Assessment Anorexia R63.0 Active Assessment Chronic obstructive pulmonary J44.9 Active disease, unspecified COPD type Assessment 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, in partial remission Problem Need for assistance due to unsteady R26.89 Active gait Assessment Family history of stomach cancer Z80.0 Active Assessment Allergic rhinitis, unspecified J30.9 Active seasonality, unspecified trigger Problem 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, in partial remission Medications Medication Code Code Instructions Start End Status Dosage System Date Date Mirtazapine [facility] 64607184388 7.5 MG Orally Active 1 tablet Once a day at bedtime Theophylline ER ND 69707353940 200 MG Orally Active 1 tablet every 12 hrs Montelukast [facility] 90433915089 10 MG Orally Active 1 tablet Sodium Once a day Montelukast ND 99800024642 10 MG Orally Active 1 tablet Sodium Once a day Ventolin HFA [facility] 40287141241 108 (90 Base) Active 2 puffs as MCG/ACT needed Inhalation every 6 hrs PRN Cough, Shortness of breath, wheezing Albuterol-Ipratr NDC 0 2.5-0.5 MG/3ML Active 3 ml opium Inhalation every 6 hrs Broalexisa [facility] 95185551645 15 MCG/2ML Active 2 ml Inhalation Twice a day Cetirizine HCl [facility] 04281872177 10 MG Orally Active 1 tablet Once a day Results No Known Results Summary Purpose eClinicalWorks Submission
--- NOTE | 2019-01-30 12:17 | RAD REPORT ---
EXAM DESCRIPTION: [place] Single View01/30/2019 12:05 pm CLINICAL HISTORY: cough COMPARISON: September 2018 FINDINGS: The lungs are moderately to markedly hyperaerated. Peribronchial thickening appears chroni c The lungs appear clear of acute infiltrate. The heart is normal size IMPRESSION: COPD without visualization acute abnormality
--- NOTE | 2019-01-30 12:48 | EDPHYS ---
Physician Documentation [facility] Name: Elias Carlisle Age: 83 yrs Sex: Male : 1935 Arrival Date: 01/30/2019 Time: 11:14 Bed 2 Private MD: ED Physician Alonso Malagon HPI: 01/30 13:19 This 83 yrs old Male presents to ER via Wheelchair with complaints of snw Breathing Difficulty, Shortness Of Breath. 13:19 The patient has shortness of breath at rest. Onset: The symptoms/episode began/occurred snw gradually, 2 day(s) ago, and became persistent. Duration: The symptoms are continuous. The patient's shortness of breath is aggravated by coughing. Associated signs and symptoms: Pertinent positives: chest pain, productive cough, fever. Severity of symptoms: At their worst the symptoms were mild moderate. The patient has experienced similar episodes in the past, multiple times. It is unknown whether or not the patient has recently seen a physician, sees Dr. Lucio. Historical: - Allergies: 11:25 INFLUENZA VIRUS VACCINES; iw 11:25 eggs; iw 11:25 Pneumovax 23; iw - Home Meds: 11:25 ipratropium-albuterol 0.5 mg-3 mg(2.5 mg base)/3 mL Inhl nebu 3 mL 4 times per day iw [Active]; Rashad-Dur Oral 200 mg twice a day [Active]; cetirizine 10 mg oral tab 1 tab once daily [Active]; PreserVision Lutein 226 mg-200 unit -5 mg-0.8 mg oral cap [Active]; Centrum oral oral daily [Active]; Ventolin Nebulizer [Active]; - PMHx: 11:25 COPD; macular degeneration; iw - PSHx: 11:25 None; iw - Immunization history:: Adult Immunizations not up to date. - Social history:: Smoking status: Patient/guardian denies using tobacco, the patient reports quitting approximately 2 years ago. - Ebola Screening: : Patient negative for fever greater than or equal to 101.5 degrees Fahrenheit, and additional compatible Ebola Virus Disease symptoms Patient denies exposure to infectious person Patient denies travel to an Ebola-affected area in the 21 days before illness onset No symptoms or risks identified at this time. ROS: 13:18 Constitutional: Negative for chills and weight loss, low grade temp Eyes: Negative for snw injury, pain, redness, and discharge, Abdomen/GI: Negative for abdominal pain, nausea, vomiting, diarrhea, and constipation, Back: Negative for injury and pain, : Negative for injury, bleeding, discharge, and swelling, MS/Extremity: Negative for injury and deformity, Skin: Negative for injury, rash, and discoloration, Neuro: Negative for headache, weakness, numbness, tingling, and seizure. 13:18 Neck: Negative for injury, pain, and swelling, Cardiovascular: Negative for chest pain, palpitations, and edema. 13:18 ENT: Positive for hearing loss. 13:18 Respiratory: Positive for cough, with rust-colored sputum, wheezing. Exam: 13:15 Constitutional: This is a well developed, well nourished patient who is awake, alert, snw and in no acute distress. Head/Face: Normocephalic, atraumatic. Eyes: Pupils equal round and reactive to light, extra-ocular motions intact. Lids and lashes normal. Conjunctiva and sclera are non-icteric and not injected. Cornea within normal limits. Periorbital areas with no swelling, redness, or edema. 13:15 Neck: Trachea midline, no thyromegaly or masses palpated, and no cervical lymphadenopathy. Supple, full range of motion without nuchal rigidity, or vertebral point tenderness. No Meningismus. Chest/axilla: Normal chest wall appearance and motion. Nontender with no deformity. No lesions are appreciated. Cardiovascular: Regular rate and rhythm with a normal S1 and S2. No gallops, murmurs, or rubs. Normal PMI, no JVD. No pulse deficits. Abdomen/GI: Soft, non-tender, with normal bowel sounds. No distension or tympany. No guarding or rebound. No evidence of tenderness throughout. Back: No spinal tenderness. No costovertebral tenderness. Full range of motion. Skin: Warm, dry with normal turgor. Normal color with no rashes, no lesions, and no evidence of cellulitis. MS/ Extremity: Pulses equal, no cyanosis. Neurovascular intact. Full, normal range of motion. Neuro: Awake and alert, GCS 15, oriented to person, place, time, and situation. Cranial nerves II-XII grossly intact. Motor strength 5/5 in all extremities. Sensory grossly intact. Cerebellar exam normal. Normal gait. 13:15 ENT: TM's: left TM with opaque color, decreased hearing , Examination of the other ear shows no obvious abnormality, Nose: is normal, Mouth: is normal, Posterior pharynx: erythema, that is moderate, Voice: is normal. 13:15 Respiratory: the patient does not display signs of respiratory distress, Respirations: shallow respirations, Breath sounds: wheezing: that is moderate, is heard in the left posterior lower lobe, right posterior middle lobe and right posterior lower lobe. Vital Signs: 11:22 BP 162 / 59; Pulse 101; Resp 22 S; Temp 98.0(TE); Pulse Ox 94% on R/A; Weight 44.45 kg; iw Height 5 ft. 6 in. (167.64 cm); 12:40 BP 158 / 62; Pulse 94; Resp 22; Temp 97.8; Pulse Ox 95% on 2 lpm NC; ph 11:22 Body Mass Index 15.82 (44.45 kg, 167.64 cm) iw MDM: 11:38 Patient medically screened. snw 12:49 Data reviewed: vital signs, nurses notes, radiologic studies. Data interpreted: Pulse snw oximetry: on 2L(s) per nasal canula, is 94 %. Interpretation: acceptable. Counseling: I had a detailed discussion with the patient and/or guardian regarding: the historical points, exam findings, and any diagnostic results supporting the discharge/admit diagnosis, the presence of at least one elevated blood pressure reading (>120/80) during this emergency department visit, lab results, radiology results, the need for outpatient follow up, to return to the emergency department if symptoms worsen or persist or if there are any questions or concerns that arise at home. Special discussion: Based on the patient's history, exam, and Dx evaluation, there is no indication for emergent intervention or inpatient Tx. It is understood by the patient/guardian that if the Sx's persist or worsen they need to return immediately for re-evaluation. I have referred the patient to see his PCP for further evaluation of high blood pressure. Based on the history and exam findings, there is no indication for further emergent testing or inpatient evaluation. I discussed with the patient/guardian the need to see the primary care provider for further evaluation of the symptoms. 12/20 11:37 Order name: Flu; Complete Time: 12:41 snw 01/30 11:37 Order name: Chest Single View XRAY; Complete Time: 12:41 snw Administered Medications: 13:13 Drug: predniSONE 40 mg Route: PO; ph 13:17 Follow up: Response: No adverse reaction ph 13:13 Drug: Pepcid 20 mg Route: PO; ph 13:17 Follow up: Response: No adverse reaction ph 13:13 Drug: Tussionex Pennkinetic ER 2.5 ml Route: PO; ph 13:17 Follow up: Response: No adverse reaction ph 13:14 Drug: Zithromax 500 mg Route: PO; ph 13:17 Follow up: Response: No adverse reaction ph Disposition: 15:00 Co-signature as Attending Physician, Alonso Malagon MD. rn Disposition: 01/30/19 12:47 Discharged to Home. Impression: Chronic obstructive pulmonary disease with (acute) exacerbation. - Condition is Stable. - Discharge Instructions: Chronic Obstructive Pulmonary Disease Exacerbation. - Prescriptions for Prednisone 20 mg Oral Tablet - take 2 tablet by ORAL route once daily for 5 days; 10 tablet. Pepcid 20 mg Oral Tablet - take 1 tablet by ORAL route once daily; 20 tablet. Zithromax 500 mg Oral Tablet - take 1 tablet by ORAL route once daily for 5 days; 5 tablet. - Medication Reconciliation Form, Thank You Letter, Antibiotic Education, Prescription Opioid Use form. - Follow up: Emergency Department; When: As needed; Reason: Trouble breathing, Worsening of condition. Follow up: Private Physician; When: 1 week; Reason: Recheck today's complaints, Continuance of care, Re-evaluation by your physician. Signatures: Dispatcher [employer] EDOK Eloina Ramírez, CRYPTOLOGIC LINGUIST-C CRYPTOLOGIC LINGUIST-Csnw Joanne Larson RN RN iw Nieto, Roman, MD MD rn Hall, Patricia, RN RN ph Corrections: (The following items were deleted from the chart) 13:18 12:47 01/30/2019 12:47 Discharged to Home. Impression: Chronic obstructive pulmonary ph disease with (acute) exacerbation. Condition is Stable. Forms are Medication Reconciliation Form, Thank You Letter, Antibiotic Education, Prescription Opioid Use. Follow up: Emergency Department; When: As needed; Reason: Trouble breathing, Worsening of condition. Follow up: Private Physician; When: 1 week; Reason: Recheck today's complaints, Continuance of care, Re-evaluation by your physician. snw
--- NOTE | 2019-01-30 12:48 | ER ---
Nurse's Notes [facility] Name: Elias Carlisle Age: 83 yrs Sex: Male : 1935 Arrival Date: 01/30/2019 Time: 11:14 Bed 2 Private MD: Diagnosis: Chronic obstructive pulmonary disease with (acute) exacerbation Presentation: 01/30 11:22 Presenting complaint: Child states: pt has bad COPD, has fever X 2 days, can't hear out iw of his ears, cough worse, ribs hurt. Transition of care: patient was not received from another setting of care. Onset of symptoms was January 28, 2019. Risk Assessment: Do you want to hurt yourself or someone else? Patient reports no desire to harm self or others. Initial Sepsis Screen: Does the patient meet any 2 criteria? RR > 20 per min. Does the patient have a suspected source of infection?. Care prior to arrival: None. 11:22 Method Of Arrival: Wheelchair iw 11:22 Acuity: MARTIR 3 iw Historical: - Allergies: 11:25 INFLUENZA VIRUS VACCINES; iw 11:25 eggs; iw 11:25 Pneumovax 23; iw - Home Meds: 11:25 ipratropium-albuterol 0.5 mg-3 mg(2.5 mg base)/3 mL Inhl nebu 3 mL 4 times per day iw [Active]; Rashad-Dur Oral 200 mg twice a day [Active]; cetirizine 10 mg oral tab 1 tab once daily [Active]; PreserVision Lutein 226 mg-200 unit -5 mg-0.8 mg oral cap [Active]; Centrum oral oral daily [Active]; Ventolin Nebulizer [Active]; - PMHx: 11:25 COPD; macular degeneration; iw - PSHx: 11:25 None; iw - Immunization history:: Adult Immunizations not up to date. - Social history:: Smoking status: Patient/guardian denies using tobacco, the patient reports quitting approximately 2 years ago. - Ebola Screening: : Patient negative for fever greater than or equal to 101.5 degrees Fahrenheit, and additional compatible Ebola Virus Disease symptoms Patient denies exposure to infectious person Patient denies travel to an Ebola-affected area in the 21 days before illness onset No symptoms or risks identified at this time. Screenin:53 Abuse screen: Denies threats or abuse. Denies injuries from another. Nutritional ph screening: No deficits noted. Tuberculosis screening: No symptoms or risk factors identified. Fall Risk None identified. Assessment: 11:51 General: Appears in no apparent distress. comfortable, slender, Behavior is calm, ph cooperative, appropriate for age, Reports chills for fever for TMAX 101. Pain: Denies pain. Neuro: Level of Consciousness is awake, alert, obeys commands, Oriented to person, place, time, situation. Cardiovascular: Capillary refill < 3 seconds in bilateral fingers Patient's skin is warm and dry. Respiratory: Reports shortness of breath at rest cough that is Airway is compromised Respiratory effort is even, unlabored, Respiratory pattern is regular, symmetrical, Breath sounds are coarse in mediastinum, right upper lobe and left upper lobe. GI: Patient currently denies abdominal pain, nausea, vomiting, Parent/caregiver reports the patient having diarrhea. Derm: Skin is intact, is fragile, is thin, Skin is pink, warm \T\ dry. Musculoskeletal: Circulation, motion, and sensation intact. Range of motion: intact in all extremities. 13:14 Reassessment: Patient appears in no apparent distress at this time. Patient and/or ph family updated on plan of care and expected duration. Pain level reassessed. Patient is alert, oriented x 3, equal unlabored respirations, skin warm/dry/pink. Pt d/c home w/ daughter. Vital Signs: 11:22 BP 162 / 59; Pulse 101; Resp 22 S; Temp 98.0(TE); Pulse Ox 94% on R/A; Weight 44.45 kg; iw Height 5 ft. 6 in. (167.64 cm); 12:40 BP 158 / 62; Pulse 94; Resp 22; Temp 97.8; Pulse Ox 95% on 2 lpm NC; ph 11:22 Body Mass Index 15.82 (44.45 kg, 167.64 cm) iw ED Course: 11:14 Patient arrived in ED. mr 11:22 Arm band placed on. iw 11:24 Triage completed. iw 11:36 Erika Mccullough, EFRAIN is Primary Nurse. ph 11:36 Eloina Ramírez FNP-C is [facility]. snw 11:36 Alonso Malagon MD is Attending Physician. snw 11:53 Patient has correct armband on for positive identification. Placed in gown. Bed in low ph position. Call light in reach. Side rails up X 1. Pulse ox on. NIBP on. 12:04 Chest Single View XRAY In Process Unspecified. EDMS 13:15 No provider procedures requiring assistance completed. Patient did not have IV access ph during this emergency room visit. Administered Medications: 13:13 Drug: predniSONE 40 mg Route: PO; ph 13:17 Follow up: Response: No adverse reaction ph 13:13 Drug: Pepcid 20 mg Route: PO; ph 13:17 Follow up: Response: No adverse reaction ph 13:13 Drug: Tussionex Pennkinetic ER 2.5 ml Route: PO; ph 13:17 Follow up: Response: No adverse reaction ph 13:14 Drug: Zithromax 500 mg Route: PO; ph 13:17 Follow up: Response: No adverse reaction ph Outcome: 12:47 Discharge ordered by MD. snw 13:17 Discharged to home via wheelchair, with family. ph 13:17 Condition: good 13:17 Discharge instructions given to patient, family, Instructed on discharge instructions, follow up and referral plans. medication usage, Demonstrated understanding of instructions, follow-up care, medications, Prescriptions given X 3. 13:18 Patient left the ED. ph Signatures: Dispatcher [employer] EDMS Eloina Ramírez, SHONDA RANGE MASTER-Lucie Morris Irene, Erika Zaragoza RN, RN RN ph Corrections: (The following items were deleted from the chart) 11:26 11:22 Resp 24bpm; Spontaneous; Pulse Ox 94% RA; Temp 98.0F Temporal; iw iw 11:26 11:22 BP 162 / 59; Pulse 101bpm; Resp 24bpm; Spontaneous; Pulse Ox 94% RA; Temp 98.0F iw Temporal; 44.45 kg; Height 5 ft. 6 in.; BMI: 15.8; iw
[2019-01-30] MEDS ORDERED: HYDROCODONE/CHLORPHEN 5 ML/OSYR ONE (12:56)
[2019-01-30] MEDS ORDERED: AZITHROMYCIN 250 MG TAB ONE (12:56)
[2019-01-30] MEDS ORDERED: predniSONE 20 MG TAB ONE (12:57)
[2019-01-30] MEDS ORDERED: FAMOTIDINE 20 MG TAB ONE (12:57)
[2019-01-30 13:28] VITALS: BP 162/59; TEMP 98; O2SAT 94
== END 2019-01-30 13:18 | disposition home or self-care (01) ==
LOC: ER 11:12
DX: J44.1 Chronic obstructive pulmonary disease with (acute) exacerbation (principal); Z91.012 Allergy to eggs; Z88.7 Allergy status to serum and vaccine
CPT/HCPCS: 71045; 87804; 99284; J7512

== ENCOUNTER 2020-09-26 10:32 | Emergency (ER) | payer OTHER ==
--- OUTSIDE RECORDS SUMMARY | 2020-09-26 10:36 | XMS REPORT | Continuity of Care Document ---
:1935 Author Organization [facility] t Address [address] [place] [address] Care Team Providers Name Role Phone Unavailable Unavailable Unavailable Problems This patient has no known problems. Allergies, Adverse Reactions, Alerts This patient has no known allergies or adverse reactions. Medications Ordered Filled Start Stop Current Ordering Indication Dosage Frequency Signature Comments Components Source Medication Medication Date Date Medication? Clinician (SIG) Name Name Fanny Paneveliogrecia 2020- No [place] [address] [facility] 8- 08-23 [facility] Cetirizine Cetirizine Yes [place] [address] [facility] HCl HCl [facility] Rashad Rashad Yes [place] TAKE [facility] CAPSULE BY [facility] - MOUTH [facility] EVERY 12 l HOURS FOR Outpat[facility] 30 DAYS ent Clinics Montelukast Montelukast Yes [place] [address] [facility] Sodium Sodium [facility] Montelukast Montelukast Yes [place] [address] [facility] Sodium Sodium [facility] EQ Allergy EQ Allergy Yes [place] TAKE [address] [facility] Relief Relief Lucio TABLET BY [facility] - (Cetirizine (Cetirizine MOUTH ONCE [facility]oria ) ) [facility] Theophyllin Theophyllin Yes [place] [address] [facility] e ER e ER Lucio [facility] Mirtazapine Mirtazapine Yes [place] [address] [facility] at bedtime [facility] Ventolin Ventolin Yes [place] [address] [facility] HFA HFA Lucio needed [facility] Albuterol-I Albuterol-I Yes [place] [address] [facility] pratropium pratropium Lucio [facility] Tai Lujan Yes [place] [address] [facility] Procedures This patient has no known procedures. Encounters Start End Encounter Admission Attending Care Care Encounter Source Date/Time Date/Time Type Type Clinicians Facility Department ID 2020-09-19 2020-09-19 Out[facility] [id number] [facility] 2020-03-14 2020-03-14 [facility] [id number] [facility] 2020-01-27 2020-01-27 [facility] [id number] [facility] 2019-09-25 2019-09-25 [facility] [id number] [facility] 07:55:00 07:55:00 t [employer] - [employer] [facility] Medicine l Medicine Outpat[facility] ent Clinics 2019-09-24 2019-09-24 [facility] [id number] [facility] 14:45:00 14:45:00 t [employer] s - Drive [facility] Medicine l Medicine Outpati ent Clinics 2019-09-24 2019-09-24 [facility] [id number] [facility] 11:19:00 11:19:00 t [employer] - [employer] [facility] Medicine l Medicine Outpati ent Clinics 2019-08-21 2019-08-21 [facility] [id number] [facility] 15:38:00 15:38:00 t [employer] [facility] Medicine l Medicine Outpati ent Clinics 2019-08-04 2019-08-04 [facility] [id number] [facility] 14:34:00 14:34:00 t [employer] s - Drive [facility] Medicine Medicine Outpati ent Clinics 2019-07-16 2019-07-16 [facility] [id number] [facility] 15[facility]15:00 15:15:00 t [place] [employer] s - Drive [facility] l Medicine Outpati ent Clinics 2019-05-27 2019-05-27 [facility] [id number] [facility] 11:49:00 11:49:00 t [place] [employer] s - Drive [facility] Medicine Outpati ent Clinics 2019-05-01 2019-05-01 [facility] [id number] 09:30:00 09:30:00 t [employer] - Drive [facility] Medicine Outpati ent Clinics 2019-04-30 2019-04-30 [facility] [id number] [address] 11:18:00 11:18:00 t [place] [employer] - Drive [facility] Medicine Outpati ent Clinics 2019-03-04 2019-03-04 [facility] [id number] 11[facility]00:00 11:00:00 t [employer] [facility] Medicine Outpati ent Clinics 2019-01-23 2019-01-23 [facility] [id number] [address] 15:54:00 15:54:00 t [employer] [facility] Medicine Outpati ent Clinics 2019-01-09 2019-01-09 [facility] [id number] 13:15:00 13:15:00 t [facility] [employer] [address] [facility] Medicine Outpati ent Clinics 2019-01-05 2019-01-05 [facility] [id number] 08:13:00 08:13:00 t [place] [employer] [facility] Medicine Outpati ent Clinics 2018-12-29 2018-12-29 [facility] [id number] 15:40:00 15:40:00 t [place] [employer] - Drive [facility] Medicine Outpati ent Clinics 2018-12-29 2018-12-29 [facility] [id number] 15:00:00 15:00:[address] Luke [address] - Drive [facility] Medicine Medicine Outpati ent Clinics 2018-11-06 2018-11-06 [facility] [id number] [address] 08:15:00 08:15:[address] Luke s - Drive [facility] Medicine l Medicine Outpati ent Clinics 2018-09-25 2018-09-25 [facility] [id number] 08[facility]18:00 08:18:[address] Luke s - Drive [facility] Medicine l Medicine Outpati ent Clinics 2018-09-23 2018-09-23 [facility] [id number] 14:30:00 14:30:00 t [place] [employer] Luke s - Drive [facility] l Medicine Outpati ent Clinics 2018-08-25 2018-08-25 [facility] [id number] [facility] 15:45:00 15:45:00 t [place] [employer] Luke s - Drive [facility] Medicine Outpati ent Clinics 2018-05-05 2018-05-05 [facility] [id number] 13:45:00 13:45:00 t [place] [employer] Luke s - Drive [facility] Medicine l Medicine Outpati ent Clinics 2018-04-09 2018-04-09 [facility] [id number] [facility] 10:30:00 10:30:00 t [place] [employer] Luke s - Drive [facility] l Medicine Outpati ent Clinics 2018-04-02 2018-04-02 [facility] [id number] 11:10:00 11:10:00 t [place] [employer] Luke s - Drive [facility] Medicine Medicine Outpati ent Clinics 2018-03-12 2018-03-12 [facility] [id number] 11:28:00 11:28:[address] Luke s - [address] [facility] l Medicine Outpati ent Clinics 2018-02-26 2018-02-26 [facility] [id number] 10:45:00 10:45:00 t [place] [employer] Luke s - Drive [facility] Medicine Medicine Outpati ent Clinics 2017-09-23 2017-09-23 Outpatient Kristel Mcfadden [id number] 13:45:00 13:45:00 t [employer] [facility] 2017-06-28 2017-06-28 Outpatient Kristel Humphriest [id number] [facility] [address] 09:00:00 09:00:00 t [employer] [facility] 2017-06-28 2017-06-28 Outpatient Kristel Humphriest [id number] [facility] [address] 07:44:00 07:44:00 t [employer] [facility] Results This patient has no known results.
[2020-09-26 12:26] LABS: Absolute Lymphocytes (CBC) 0.5 K/uL (0.7-4.9); Basophils % 0.3 % (0-1.3); Hematocrit 40.5 % (39.6-49.0); Lymphocytes % 17.9 % (15.3-44.8); MPV 7.6 fL (7.6-11.3); RBC Red Blood Cell Count 4.42 M/uL (4.33-5.43)
--- NOTE | 2020-09-26 12:28 | RAD REPORT ---
EXAM DESCRIPTION: RAD - Chest Single View - 09/26/2020 12:20 pm CLINICAL HISTORY: SOB;Cough COMPARISON: Chest Pa And Lat (2 Views) dated 09/24/2019; Chest Single View dated 01/30/2019; Chest Pa And Lat (2 Views) dated 10/08/2018; Chest Single View dated 10/07/2018; Abdomen Pelvis W Contrast da jess 01/02/2019 FINDINGS: Emphysematous changes. Minimal nodularity is present at the right lung base. The heart siz e is within normal limits.No acute osseous abnormality. No significant pleural effusions or pneumotho rax. IMPRESSION: Minimal right basilar nodularity could reflect mild infection or inflammation. The lungs are otherwise clear. Background of advanced emphysema.
[2020-09-26 12:48] LABS: ALT/SGPT 37 U/L (12-78); AST/SGOT 55 U/L (15-37); Albumin 3.6 g/dL (3.4-5.0); Alkaline Phosphatase 43 U/L (45-117); BUN Blood Urea Nitrogen 21 mg/dL (7-18); Bicarbonate 31 mmol/L (21-32); Bilirubin Total 0.3 mg/dL (0.2-1.0); Ferritin 681.6 ng/mL (26-388); Glucose Level 87 mg/dL (74-106); Potassium 4.1 mmol/L (3.5-5.1); Protein, Total 7.4 g/dL (6.4-8.2); Sodium Level 134 mmol/L (136-145)
[2020-09-26 13:48] LABS: SARS-COV-2 RT PCR POSITIVE (NEGATIVE)
[2020-09-26] MEDS ORDERED: CASIRIVIMAB/IMDEVIMAB 10 ML VIAL ONE (14:55)
[2020-09-26] MEDS ORDERED: NA CHLORIDE 0.9% 250 ML ONE (14:56)
[2020-09-26 15:17] LABS: White Blood Cell Scan OK (OK)
[2020-09-26 15:18] LABS: Anisocytosis 1+; Blood Morphology Comment NOTED (NOT SEEN); Platelet Estimate DECR; Poikilocytosis 2+
[2020-09-26] MEDS ORDERED: ALBUTEROL 2.5 MG/3 ML NEB SOL ONE (15:22)
[2020-09-26] MEDS ORDERED: CASIRIVIMAB/IMDEVIMAB 10 ML in NA CHLORIDE 0.9% 250 ML IV ONE (16:00)
--- NOTE | 2020-09-26 16:15 | ER ---
Nurse's Notes [facility] Name: Elias Carlisle Age: 84 yrs Sex: Male : 1935 Arrival Date: 09/26/2020 Time: 10:44 Bed 12 Private MD: Diagnosis: Coronavirus infection, unspecified;Diarrhea, unspecified Presentation: 09/26 10:53 Chief complaint: EMS states: Whole family is COVID+, daughter concerned because he raffaele hb COPD, so she called 911. Pt reports worsening cough and mild diarrhea x 3-4 days. Coronavirus screen: Client reports previous positive COVID test result. Ebola Screen: No symptoms or risks identified at this time. Risk Assessment: Do you want to hurt yourself or someone else? Patient reports no desire to harm self or others. Onset of symptoms was September 23, 2020. 10:53 Method Of Arrival: EMS: [facility] hb 10:53 Acuity: MARTIR 3 hb 18:06 Initial Sepsis Screen: Does the patient meet any 2 criteria? HR > 90 bpm. No. Patient's ll1 initial sepsis screen is negative. Does the patient have a suspected source of infection? Yes:. Triage Assessment: 18:08 General: Appears in no apparent distress. Behavior is calm, cooperative, appropriate ll1 for age. Pain: Denies pain. Respiratory: Onset: The symptoms/episode began/occurred gradually. Respiratory: Reports shortness of breath cough that is Airway is patent Trachea midline Respiratory effort is even, unlabored, Respiratory pattern is regular, symmetrical, Sputum is thick. Historical: - Allergies: 10:53 Eggs; ll1 10:53 Influenza Virus Vaccines; ll1 10:53 Pneumovax 23; ll1 - PMHx: 10:53 COPD; macular degeneration; ll1 - Immunization history:: Adult Immunizations up to date. - Social history:: Smoking status: Patient/guardian denies using tobacco, but has a distant history of tobacco abuse. Screenin:26 Abuse screen: Denies threats or abuse. Nutritional screening: No deficits noted. ll1 Tuberculosis screening: No symptoms or risk factors identified. Fall Risk IV access (20 points). Gait- Weak (10 pts.). Mental Status- Overestimates/Forgets Limitations (15 pts.). Total Christina Fall Scale indicates High Risk Score (45 or more points). Fall prevention measures have been instituted. Side Rails Up X 2 Frequent Obs/Assessments Occuring As available patient and family educated on Fall Prevention Program and Strategies. Assessment: 11:20 General: Appears in no apparent distress. Behavior is calm, cooperative, appropriate ll1 for age. Pain: Denies pain. Neuro: No deficits noted. Cardiovascular: No deficits noted. Rhythm is regular. Respiratory: Airway is patent Trachea midline Respiratory effort is even, unlabored, Respiratory pattern is regular, symmetrical, Sputum is thick, Breath sounds are diminished bilaterally. the patient has mild shortness of breath. GI: No deficits noted. GI: Abdomen is flat, Bowel sounds present X 4 quads. Reports diarrhea. : No deficits noted. 12:20 Reassessment: No changes from previously documented assessment. Patient and/or family ll1 updated on plan of care and expected duration. Pain level reassessed. Patient is alert, oriented x 3, equal unlabored respirations, skin warm/dry/pink. 13:20 Reassessment: No changes from previously documented assessment. Patient and/or family ll1 updated on plan of care and expected duration. Pain level reassessed. Patient is alert, oriented x 3, equal unlabored respirations, skin warm/dry/pink. 14:20 Reassessment: No changes from previously documented assessment. Patient and/or family ll1 updated on plan of care and expected duration. Pain level reassessed. Patient is alert, oriented x 3, equal unlabored respirations, skin warm/dry/pink. 15:20 Reassessment: No changes from previously documented assessment. Patient and/or family ll1 updated on plan of care and expected duration. Pain level reassessed. Patient is alert, oriented x 3, equal unlabored respirations, skin warm/dry/pink. 16:20 Reassessment: No changes from previously documented assessment. Patient and/or family ll1 updated on plan of care and expected duration. Pain level reassessed. 17:20 Reassessment: No changes from previously documented assessment. Patient and/or family ll1 updated on plan of care and expected duration. Pain level reassessed. 18:07 Reassessment: No changes from previously documented assessment. Patient and/or family ll1 updated on plan of care and expected duration. Pain level reassessed. Patient is alert, oriented x 3, equal unlabored respirations, skin warm/dry/pink. Vital Signs: 10:53 BP 174 / 83; Pulse 97; Resp 20; Temp 99.5(TE); Pulse Ox 100% on 3 lpm NC; Pain 3/10; hb 18:06 BP 127 / 65; Pulse 88; Resp 20; Temp 99.0; Pulse Ox 95% on 2 lpm NC; ll1 ED Course: 10:44 Patient arrived in ED. bd 10:46 Brandyn Dunlap, SENIOR JAVA PROGRAMMER ANALYST is PHCP. pm1 10:46 Deny Lucio is Attending Physician. pm1 10:53 Chelsea Cherry, EFRAIN is Primary Nurse. ll1 10:53 Arm band placed on Patient placed in an exam room, on a stretcher. ll1 10:56 Triage completed. hb 11:23 Strep Sent. ll1 12:15 Inserted saline lock: 22 gauge in right forearm, using aseptic technique. Blood ll1 collected. 12:20 CXR XRAY In Process Unspecified. EDMS 12:26 Patient has correct armband on for positive identification. Bed in low position. Call ll1 light in reach. Side rails up X 1. Pulse ox on. NIBP on. 13:58 Notified Nurse Practitioner and/or Physician Building Energy Consultant of a critical lab result(s), ll1 covid positive. 18:06 No provider procedures requiring assistance completed. IV discontinued, intact, ll1 bleeding controlled, No redness/swelling at site. Pressure dressing applied. Administered Medications: 15:09 Drug: REGEN-COV Dose Pack 120 mg/mL-120 mg/mL (EUA) 600 mg Route: IV; Rate: calculated ll1 rate; Site: right forearm; 16:15 Follow up: Response: No adverse reaction; IV Status: Completed infusion; IV Intake: ll1 260ml 15:10 Drug: Albuterol 2.5 mg Route: Inhalation; ll1 15:22 Follow up: Response: No adverse reaction ll1 15:57 CANCELLED (Physician Discretion): Tylenol 1000 mg PO once pm1 Intake: 16:15 IV: 260ml; Total: 260ml. ll1 Outcome: 16:15 Discharge ordered by . pm1 18:07 Discharged to home via wheelchair. ll1 18:07 Condition: stable 18:07 Discharge instructions given to patient, family, Instructed on discharge instructions, follow up and referral plans. Demonstrated understanding of instructions, follow-up care. 18:08 Patient left the ED. ll1 Signatures: Dispatcher [employer] EDMS Juany Ponce Patrick, SENIOR JAVA PROGRAMMER ANALYST SENIOR JAVA PROGRAMMER ANALYST pm1 Manju Freed RN RN hb Lewis, Lynsay, RN RN ll1 Corrections: (The following items were deleted from the chart) 12:44 11:23 CORONAVIRUS+MR.LAB.BRZ drawn and sent. 1 EDMS 12:45 11:23 Influenza Screen (A \T\ B)+BA.LAB.BRZ drawn and sent. [facility] EDIN
--- NOTE | 2020-09-26 16:15 | EDPHYS ---
Physician Documentation [facility] Name: Elias Carlisle Age: 84 yrs Sex: Male : 1935 Arrival Date: 09/26/2020 Time: 10:44 Bed 12 Private MD: ED Physician Deny Lucio HPI: 09/26 14:08 This 84 yrs old Male presents to ER via EMS with complaints of COVID+, pm1 Shortness Of Breath. 14:08 The patient or guardian reports cough, with productive sputum. pm1 14:08 Onset: The symptoms/episode began/occurred 4 day(s) ago. Severity of symptoms: in the pm1 emergency department the symptoms Worsening cough, patient reports baseline shortness of breath from chronic pulmonary disease, emphysema. Modifying factors: The symptoms are alleviated by Home oxygen therapy. Associated signs and symptoms: Pertinent positives: 3-4 total episodes of diarrhea since onset of symptoms. Patient reports improvement with antidiarrheal medications, Pertinent negatives: fever. The patient has not recently seen a physician, Patient diagnosed with Covid with home swab today. Patient's daughter called EMS due to patient's positive Covid result today. Patient with worsening of cough that started 3 to 4 days ago. Positive for sputum. Patient with history of COPD, emphysema. Patient's whole family with diagnosis of covid and daughter was concerned that he will not does not keep his nasal cannula on his saturations drop. Patient reports baseline shortness of breath due to his history of COPD. His saturations are within normal limits when he has his nasal cannula present. Historical: - Allergies: 10:53 Eggs; ll1 10:53 Influenza Virus Vaccines; ll1 10:53 Pneumovax 23; ll1 - PMHx: 10:53 COPD; macular degeneration; ll1 - Immunization history:: Adult Immunizations up to date. - Social history:: Smoking status: Patient/guardian denies using tobacco, but has a distant history of tobacco abuse. ROS: 14:08 Cardiovascular: Negative for chest pain, palpitations, and edema. pm1 14:08 Back: Negative for injury and pain, MS/Extremity: Negative for injury and deformity, Skin: Negative for injury, rash, and discoloration, Neuro: Negative for headache, weakness, numbness, tingling, and seizure. 14:08 Constitutional: Negative for fever, poor PO intake. 14:08 Respiratory: Positive for cough, with white sputum, shortness of breath. 14:08 Abdomen/GI: Positive for diarrhea, Negative for abdominal pain, nausea and vomiting. 14:08 All other systems are negative. Exam: 14:08 Constitutional: This is a well developed, well nourished patient who is awake, alert, pm1 and in no acute distress. Head/Face: Normocephalic, atraumatic. 14:08 Back: No spinal tenderness. No costovertebral tenderness. Full range of motion. Skin: Warm, dry with normal turgor. Normal color with no rashes, no lesions, and no evidence of cellulitis. MS/ Extremity: Pulses equal, no cyanosis. Neurovascular intact. Full, normal range of motion. 14:08 Eyes: Exam is negative for acute changes, Extraocular movements: no acute changes, Conjunctiva: normal, no injection. 14:08 ENT: 14:08 ENT: Mouth: Lips: normal, Oral mucosa: normal, pink and intact, moist. 14:08 Cardiovascular: Rate: normal, Rhythm: regular, Pulses: no pulse deficits are appreciated, Heart sounds: normal, normal S1and S2, Edema: is not appreciated. 14:08 Respiratory: the patient does not display signs of respiratory distress, Respirations: normal, Breath sounds: are clear throughout, no bronchial sounds, no decreased breath sounds, no rales, rhonchi, no wheezing. 14:08 Abdomen/GI: Inspection: abdomen appears normal, Palpation: abdomen is soft and non-tender, in all quadrants. 14:08 Neuro: Exam negative for acute changes, Orientation: is normal, Mentation: is normal, Motor: is normal, moves all fours. Vital Signs: 10:53 BP 174 / 83; Pulse 97; Resp 20; Temp 99.5(TE); Pulse Ox 100% on 3 lpm NC; Pain 3/10; hb 18:06 BP 127 / 65; Pulse 88; Resp 20; Temp 99.0; Pulse Ox 95% on 2 lpm NC; ll1 MDM: 10:59 Patient medically screened. pm1 14:31 Special discussion: Discussed with patient risk and benefits of receiving monoclonal pm1 antibodies, Regeneron, with patient and daughter. Consulted with attending physician Dr. Lucio regarding the patient in eligibility of receiving monoclonal antibodies. Agrees with decision to give to the patient. Discuss further with daughter and patient and they would like for him to receive the monoclonal antibodies. 15:26 Data reviewed: vital signs. Data interpreted: Pulse oximetry: on 3L(s) per nasal pm1 canula, is 100 %. Interpretation: Baseline with his history of COPD, patient uses supplemental oxygen at home. 16:14 Counseling: I had a detailed discussion with the patient and/or guardian regarding: the pm1 historical points, exam findings, and any diagnostic results supporting the discharge/admit diagnosis, lab results, radiology results, the need for outpatient follow up, a family practitioner, a muffle worker, to return to the emergency department if symptoms worsen or persist or if there are any questions or concerns that arise at home. 09/26 11:16 Order name: Strep; Complete Time: 11:49 pm1 09/26 11:50 Order name: CRP; Complete Time: 13:00 pm1 09/26 11:50 Order name: Ferritin; Complete Time: 13:00 pm1 09/26 11:50 Order name: CBC with Diff; Complete Time: 15:23 pm1 09/26 11:16 Order name: CXR XRAY; Complete Time: 12:33 pm1 09/26 11:50 Order name: CMP; Complete Time: 13:00 pm1 09/26 11:53 Order name: Throat Culture EDPA 09/26 13:49 Order name: COVID-19/FLU A+B; Complete Time: 13:50 EDMS 09/26 15:17 Order name: CBC Smear Scan; Complete Time: 15:23 EDPA 09/26 11:16 Order name: Droplet/Contact Precautions; Complete Time: 11:16 pm1 09/26 11:16 Order name: Labs collected and sent; Complete Time: 11:16 pm1 09/26 11:16 Order name: O2 Per Protocol; Complete Time: 11:16 pm1 09/26 11:50 Order name: IV Saline Lock; Complete Time: 12:11 pm1 Administered Medications: 15:09 Drug: REGEN-COV Dose Pack 120 mg/mL-120 mg/mL (EUA) 600 mg Route: IV; Rate: calculated ll1 rate; Site: right forearm; 16:15 Follow up: Response: No adverse reaction; IV Status: Completed infusion; IV Intake: ll1 260ml 15:10 Drug: Albuterol 2.5 mg Route: Inhalation; [facility] 15:22 Follow up: Response: No adverse reaction ll1 15:57 CANCELLED (Physician Discretion): Tylenol 1000 mg PO once pm1 Disposition: 17:11 Co-signature as Attending Physician, Deny Lucio I agree with the assessment and plan sp3 of care. Disposition Summary: 09/26/20 16:15 Discharge Ordered Location: Home pm1 Problem: new pm1 Symptoms: have improved pm1 Condition: Stable pm1 Diagnosis - Coronavirus infection, unspecified pm1 - Diarrhea, unspecified pm1 Followup: pm1 - With: Emergency Department - When: As needed - Reason: Worsening of condition Followup: pm1 - With: Private Physician - When: 2 - 3 days - Reason: Recheck today's complaints, Continuance of care, Re-evaluation by your physician Discharge Instructions: - Discharge Summary Sheet pm1 - Food Choices to Help Relieve Diarrhea, Adult pm1 - Diarrhea, Adult pm1 - COVID-19 pm1 Forms: - Medication Reconciliation Form pm1 - Thank You Letter pm1 - Antibiotic Education pm1 - Prescription Opioid Use pm1 Signatures: Dispatcher [employer] EDMS Brandyn Dunlap, UTILITY WORKER UTILITY WORKER pm1 Chelsea Cherry RN RN 1 Deny Lucio sp3 Corrections: (The following items were deleted from the chart) 12:44 11:16 CORONAVIRUS+MR.LAB.BRZ ordered. EDMS EDMS 12:45 11:16 Influenza Screen (A \T\ B)+BA.LAB.BRZ ordered. EDMS EDMS 15:57 15:57 Tylenol 1000 mg PO once ordered. pm1 pm1
[2020-09-26 18:27] VITALS: BP 127/65; TEMP 99; O2SAT 95
== END 2020-09-26 18:08 | disposition home or self-care (01) ==
LOC: ER 10:32
DX: U07.1 COVID-19 (principal); J44.9 Chronic obstructive pulmonary disease, unspecified; Z88.7 Allergy status to serum and vaccine; Z91.012 Allergy to eggs
CPT/HCPCS: 96365; 87070; 85025; 36415; 87081; 82728; 80053; 0240U; 86140; 71045; 99284; J7050

== ENCOUNTER 2020-10-01 17:48 | Inpatient (IN) | payer OTHER ==
--- OUTSIDE RECORDS SUMMARY | 2020-10-01 17:51 | XMS REPORT | Continuity of Care Document ---
:1935 Author Organization [facility] t Address [address] [place] [address] Care Team Providers Name Role Phone Unavailable Unavailable Unavailable Problems This patient has no known problems. Allergies, Adverse Reactions, Alerts This patient has no known allergies or adverse reactions. Medications Ordered Filled Start Stop Current Ordering Indication Dosage Frequency Signature Comments Components Source Medication Medication Date Date Medication? Clinician (SIG) Name Name Levaquin Levaquin 2020-0 2020- No [place] [address] [facility] 09-23 [facility] Cetirizine Cetirizine Yes [place] [address] [facility] HCl HCl [facility] Rashad-24 Rashad-24 Yes [place] [facility] MOUTH [facility] EVERY 12 l HOURS FOR Outpat[facility] 30 DAYS ent Clinics Montelukast Montelukast Yes [place] [address] [facility] Sodium Sodium [facility] Montelukast Montelukast Yes [place] [address] [facility] Sodium Sodium [facility] EQ Allergy EQ Allergy Yes [place] TAKE [address] [facility] Relief Relief Lucio TABLET BY [facility] - (Cetirizine (Cetirizine MOUTH ONCE [facility] ) ) DAILY [facility] Theophyllin Theophyllin Yes [place] [address] [facility] e ER e ER [facility] Mirtazapine Mirtazapine Yes [place] 1 [...] Date/Time Type Type Clinicians Facility Department ID 2020-09-30 2020-09-30 Outpatient [facility] [id number] [facility] 2020-09-29 2020-09-29 Out[facility] [id number] [facility] 2020-09-26 2020-09-26 Out[facility] [id number] [facility] 2020-09-19 2020-09-19 Outpatient [facility] [id number] [facility] 2020-03-14 2020-03-14 Outpatient [facility] [id number] [facility] 2020-01-27 2020-01-27 Outpatient [facility] [id number] [facility] 2019-09-25 2019-09-25 [facility] [id number] [facility] 07:55:00 07:55:00 t [employer] [facility] Medicine Medicine Outpati ent Clinics 2019-09-24 2019-09-24 [facility] [id number] [facility] 14:45:00 14:45:00 [facility] [employer] [facility] Clinics 2019-09-24 2019-09-24 [facility] [id number] [facility] 11:19:00 11:19:00 t [employer] s - Drive [facility] Medicine l Medicine Outpati ent Clinics 2019-08-21 2019-08-21 [facility] [id number] [facility] 15:38:00 15:38:00 t [employer] s - Drive [facility] Medicine l Medicine Outpati ent Clinics 2019-08-04 2019-08-04 [facility] [id number] [facility] 14:34:00 14:34:00 t [employer] s - [employer] [facility] Medicine l Medicine Outpati ent Clinics 2019-07-16 2019-07-16 [facility] [id number] [facility] 15:15:00 15:15:00 t [employer] [facility] Medicine l Medicine Outpati ent Clinics 2019-05-27 2019-05-27 [facility] [id number] [facility] 11:49:00 11:49:00 t [employer] [facility] Medicine l Medicine Outpati ent Clinics 2019-05-01 2019-05-01 [facility] [id number] [facility] 09:30:00 09:30:00 t [employer] [facility] Medicine l Medicine Outpati ent Clinics 2019-04-30 2019-04-30 [facility] [id number] [facility] 11:18:00 11:18:00 t [employer] [facility] Medicine l Medicine Outpati ent Clinics 2019-03-04 2019-03-04 [facility] [id number] [facility] 11:00:00 11:00:00 t [employer] [facility] Medicine l Medicine Outpati ent Clinics 2019-01-23 2019-01-23 [facility] [id number] [facility] 15:54:00 15:54:00 t [employer] [facility] Medicine l Medicine Outpati ent Clinics 2019-01-09 2019-01-09 [facility] [id number] [facility] 13:15:00 13:15:00 t [facility] s - Road [facility] Medicine Outpati ent Clinics 2019-01-05 2019-01-05 [facility] [id number] [facility] 08[facility]13:00 08:13:00 t [employer] Luke s - Drive [facility] Medicine Outpati ent Clinics 2018-12-29 2018-12-29 [facility] [id number] [facility] 15:40:00 15:40:00 t [employer] s - Drive [facility] Medicine Outpati ent Clinics 2018-12-29 2018-12-29 [facility] [id number] [facility] 15:00:00 15:00:00 t [employer] s - Drive [facility] Medicine Outpati ent Clinics 2018-11-06 2018-11-06 [facility] [id number] [facility] 08:15:00 08:15:00 t [employer] s - Drive [facility] Medicine Outpati ent Clinics 2018-09-25 2018-09-25 [facility] [id number] [facility] 08:18:00 08:18:00 t [employer] s - Drive [facility] Medicine Outpati ent Clinics 2018-09-23 2018-09-23 [facility] [id number] [facility] 14:30:00 14:30:00 t [employer] s - Drive [facility] Medicine Outpati ent Clinics 2018-08-25 2018-08-25 [facility] [id number] [facility] 15:45:00 15:45:00 t [employer] s - Drive [facility] Medicine Outpati ent Clinics 2018-05-05 2018-05-05 [facility] [id number] [facility] 13:45:00 13:45:00 t [employer] s - Drive [facility] Medicine Outpati ent Clinics 2018-04-09 2018-04-09 [facility] [id number] [facility] 10[facility]30:00 10:30:00 t [employer] s - Drive [facility] Medicine Outpati ent Clinics 2018-04-02 2018-04-02 [facility] [id number] [facility] 11:10:00 11:10:00 t [employer] s - Drive [facility] Medicine Outpati ent Clinics 2018-03-12 2018-03-12 [facility] [id number] [facility] 11:28:00 11:28:[address] [employer] s - Drive [facility] Medicine Outpati ent Clinics 2018-02-26 2018-02-26 [facility] [id number] [facility] 10:45:00 10:45:00 t [employer] s - Drive [facility] Medicine Outpati ent Clinics 2017-09-23 2017-09-23 [facility] [id number] [facility] 13:45:00 13:45:00 t [employer] [facility] Medicine Outpati ent Clinics 2017-06-28 2017-06-28 [facility] [id number] [facility] 09:00:00 09:00:00 t [employer] s - Drive [facility] Medicine Outpati ent Clinics 2017-06-28 2017-06-28 [facility] [id number] 07:44:00 07:44:00 t [employer] s - Drive [facility] Medicine Outpati ent Clinics Results This patient has no known results.
--- NOTE | 2020-10-01 18:40 | RAD REPORT ---
EXAM DESCRIPTION: Moises Single View10/01/2020 6:30 pm CLINICAL HISTORY: Cough COMPARISON: September 26 2020 FINDINGS: Lungs are markedly hyperaerated. The lungs appear clear of acute infiltrate. The heart is normal size IMPRESSION: Marked COPD without visualization of an acute abnormality
--- NOTE | 2020-10-01 18:44 | ER ---
Nurse's Notes [facility] Name: Elias Carlisle Age: 84 yrs Sex: Male : 1935 Arrival Date: 10/01/2020 Time: 18:07 Bed 18 Private MD: Diagnosis: COPD/ Chronic obstructive pulmonary disease with (acute) exacerbation;Hypoxemia;Coronavirus infection, unspecified Presentation: 10/01 18:11 Chief complaint: EMS states: Pt is from home, tested positive for Covid. O2sat was 88% rb3 on his oxygen tank at home. EMS put him on 4 L NC and O2 sat increased to 98%, BP 155/99, P 125,Temp 98.5. Has a history of COPD and is hard of hearing. Only medication EMS knows about is Albuterol. 18:11 Method Of Arrival: EMS: [facility] rb3 18:11 Coronavirus screen: congestion, cough unrelated to allergies, shortness of breath, Pt rb3 has tested positive for Covid. Ebola Screen: Patient denies travel to an Ebola-affected area in the 21 days before illness onset. Initial Sepsis Screen: Does the patient meet any 2 criteria? No. Patient's initial sepsis screen is negative. Does the patient have a suspected source of infection? Yes: Productive cough/pneumonia. Risk Assessment: Do you want to hurt yourself or someone else? Patient reports no desire to harm self or others. Onset of symptoms is unknown. 18:11 Acuity: MARTIR 3 rb3 Triage Assessment: 18:11 General: Appears in no apparent distress. Behavior is calm, cooperative, Denies fever. rb3 Pain: Denies pain. Neuro: Level of Consciousness is awake, alert, obeys commands, Oriented to person, place, time, situation. Cardiovascular: Patient's skin is warm and dry. Respiratory: Reports shortness of breath cough that is productive, Green sputum Airway is patent Respiratory effort is even, unlabored, Respiratory pattern is regular, symmetrical. GI: No signs and/or symptoms were reported involving the gastrointestinal system. : No signs and/or symptoms were reported regarding the genitourinary system. Historical: - Allergies: 18:11 Eggs; rb3 18:11 Influenza Virus Vaccines; rb3 18:11 Pneumovax 23; rb3 - Home Meds: 18:11 Centrum Oral daily [Active]; cetirizine 10 mg Oral tab 1 tab once daily [Active]; rb3 Dimetapp [Active]; ipratropium-albuterol 0.5 mg-3 mg(2.5 mg base)/3 mL Inhl nebu 3 mL 4 times per day [Active]; PreserVision Lutein 226 mg-200 unit -5 mg-0.8 mg Oral cap [Active]; Rashad-Dur Oral 200 mg twice a day [Active]; Ventolin Nebulizer [Active]; - PMHx: 18:11 COPD; macular degeneration; rb3 - Immunization history:: Adult Immunizations up to date. - Social history:: Smoking status: Patient/guardian denies using. Screenin:11 Abuse screen: Denies threats or abuse. Nutritional screening: No deficits noted. rb3 Tuberculosis screening: No symptoms or risk factors identified. Assessment: 18:11 General: See triage assessment. rb3 Vital Signs: 18:11 BP 162 / 86; Pulse 119; Resp 19; Temp 98.4; Pulse Ox 99% on 4 lpm NC; Weight 43.09 kg rb3 (R); Height 5 ft. 6 in. (167.64 cm) (R); Pain 0/10; 18:11 Body Mass Index 15.33 (43.09 kg, 167.64 cm) rb3 ED Course: 18:07 Patient arrived in ED. iw 18:08 Damion Beckett MD is Attending Physician. reina 18:11 Karla Saba, RN is Primary Nurse. rb3 18:11 Arm band placed on right wrist. rb3 18:11 Patient has correct armband on for positive identification. Bed in low position. Call rb3 light in reach. Side rails up X2. Pulse ox on. NIBP on. Warm blanket given. 18:18 Triage completed. rb3 18:30 XRAY Chest (1 view) In Process Unspecified. EDMS 18:40 Loreta Junior MD is Hospitalizing Provider. reina 18:55 Inserted saline lock: 22 gauge in left antecubital area, using aseptic technique. rb3 ,using aseptic technique. IV inserted by EFRAIN Velarde. Blood collected. 22:26 CT Chest For PE Angio In Process Unspecified. EDMS 10/02 19:30 Primary Nurse role handed off by Karla Saba RN mw2 19:37 Laura Craig, RN is Primary Nurse. lh3 Administered Medications: 10/01 18:54 Drug: Xopenex (levalbuterol) 3.75 mg Route: Inhalation; rb3 18:54 Drug: AtroVENT (ipratropium) Aerosol 0.5 mg Route: Inhalation; rb3 20:18 Drug: SOLU-Medrol (methylPrednisoLONE) 125 mg Route: IVP; Site: left antecubital; ea 20:18 Drug: Rocephin (cefTRIAXone) 1 grams Route: IV; Rate: per protocol; Site: left ea antecubital; 20:18 Drug: Pepcid (famotidine) 20 mg Route: IVP; Site: left antecubital; ea 20:19 Drug: NS 0.9% 1000 ml Route: IV; Rate: 125 ml/hr; Site: left antecubital; ea 20:19 Drug: NS 0.9% 500 ml Route: IV; Rate: bolus; Site: left antecubital; ea 20:19 Drug: Zithromax (azithromycin) 500 mg Route: IVPB; Infused Over: 1 hrs; Site: left ea antecubital; Outcome: 18:44 Decision to Hospitalize by Provider. reina 10/04 22:05 Patient left the ED. ea Signatures: Dispatcher [employer] Damion Morales MD MD cha Williams, Irene RN Ruthie Donovan RN RN ea [place], MyKena mw2 Karla Saba RN RN 3 Laura Craig RN RN 3
--- NOTE | 2020-10-01 18:45 | EDPHYS ---
Physician Documentation [facility] Name: Elias Carlisle Age: 84 yrs Sex: Male : 1935 Arrival Date: 10/01/2020 Time: 18:07 Bed 18 Private MD: ED Physician Damion Beckett HPI: 10/01 18:31 This 84 yrs old Male presents to ER via EMS with complaints of Shortness Of reina Breath, Covid positive. 18:31 The patient has shortness of breath at rest, with light activity. Onset: The reina symptoms/episode began/occurred 2 day(s) ago. Duration: The symptoms are continuous, and are steadily getting worse. The patient's shortness of breath has no apparent modifying factors. Associated signs and symptoms: The patient has no apparent associated signs or symptoms. Severity of symptoms: At their worst the symptoms were mild in the emergency department the symptoms are unchanged. The patient has experienced a previous episode, The patient has experienced similar episodes in the past, multiple times. Historical: - Allergies: 18:11 Eggs; rb3 18:11 Influenza Virus Vaccines; rb3 18:11 Pneumovax 23; rb3 - Home Meds: 18:11 Centrum Oral daily [Active]; cetirizine 10 mg Oral tab 1 tab once daily [Active]; rb3 Dimetapp [Active]; ipratropium-albuterol 0.5 mg-3 mg(2.5 mg base)/3 mL Inhl nebu 3 mL 4 times per day [Active]; PreserVision Lutein 226 mg-200 unit -5 mg-0.8 mg Oral cap [Active]; Rashad-Dur Oral 200 mg twice a day [Active]; Ventolin Nebulizer [Active]; - PMHx: 18:11 COPD; macular degeneration; rb3 - Immunization history:: Adult Immunizations up to date. - Social history:: Smoking status: Patient/guardian denies using. ROS: 18:35 Constitutional: Negative for fever, chills, and weight loss, Eyes: Negative for injury, reina pain, redness, and discharge, ENT: Negative for injury, pain, and discharge, Neck: Negative for injury, pain, and swelling, Abdomen/GI: Negative for abdominal pain, nausea, vomiting, diarrhea, and constipation, Back: Negative for injury and pain, : Negative for injury, bleeding, discharge, and swelling, MS/Extremity: Negative for injury and deformity, Skin: Negative for injury, rash, and discoloration, Neuro: Negative for headache, weakness, numbness, tingling, and seizure, Psych: Negative for depression, anxiety, suicide ideation, homicidal ideation, and hallucinations, Allergy/Immunology: Negative for hives, rash, and allergies, Endocrine: Negative for neck swelling, polydipsia, polyuria, polyphagia, and marked weight changes, Hematologic/Lymphatic: Negative for swollen nodes, abnormal bleeding, and unusual bruising. 18:35 Cardiovascular: Positive for 18:35 Cardiovascular: Positive for palpitations. reina 18:35 Respiratory: Positive for cough, shortness of breath, wheezing, expiratory. Exam: 18:35 Constitutional: This is a well developed, well nourished patient who is awake, alert, reina and in no acute distress. Head/Face: Normocephalic, atraumatic. Eyes: Pupils equal round and reactive to light, extra-ocular motions intact. Lids and lashes normal. Conjunctiva and sclera are non-icteric and not injected. Cornea within normal limits. Periorbital areas with no swelling, redness, or edema. ENT: Nares patent. No nasal discharge, no septal abnormalities noted. Tympanic membranes are normal and external auditory canals are clear. Oropharynx with no redness, swelling, or masses, exudates, or evidence of obstruction, uvula midline. Mucous membranes moist. Neck: Trachea midline, no thyromegaly or masses palpated, and no cervical lymphadenopathy. Supple, full range of motion without nuchal rigidity, or vertebral point tenderness. No Meningismus. Chest/axilla: Normal chest wall appearance and motion. Nontender with no deformity. No lesions are appreciated. Cardiovascular: Regular rate and rhythm with a normal S1 and S2. No gallops, murmurs, or rubs. Normal PMI, no JVD. No pulse deficits. Abdomen/GI: Soft, non-tender, with normal bowel sounds. No distension or tympany. No guarding or rebound. No evidence of tenderness throughout. Back: No spinal tenderness. No costovertebral tenderness. Full range of motion. Skin: Warm, dry with normal turgor. Normal color with no rashes, no lesions, and no evidence of cellulitis. MS/ Extremity: Pulses equal, no cyanosis. Neurovascular intact. Full, normal range of motion. Neuro: Awake and alert, GCS 15, oriented to person, place, time, and situation. Cranial nerves II-XII grossly intact. Motor strength 5/5 in all extremities. Sensory grossly intact. Cerebellar exam normal. Normal gait. Psych: Awake, alert, with orientation to person, place and time. Behavior, mood, and affect are within normal limits. 18:35 Respiratory: mild respiratory distress is noted, Respirations: labored breathing, that is mild, Breath sounds: decreased breath sounds, that are mild, are located in both bases, rhonchi, that are mild, Respiratory rate: 22 19:24 ECG was reviewed by the Attending Physician. reina Vital Signs: 18:11 BP 162 / 86; Pulse 119; Resp 19; Temp 98.4; Pulse Ox 99% on 4 lpm NC; Weight 43.09 kg rb3 (R); Height 5 ft. 6 in. (167.64 cm) (R); Pain 0/10; 18:11 Body Mass Index 15.33 (43.09 kg, 167.64 cm) rb3 MDM: 18:08 Patient medically screened. reina 18:10 Patient medically screened. reina 18:38 Differential diagnosis: Anemia Bronchitis CHF exacerbation, Chronic Obstructive reina Pulmonary Disease bronchitis, flu, acute asthma, URI, pneumonia, Pneumothorax pulmonary edema, reactive airway disease. Antibiotic administration: Rocephin and Zithromax given. The patient's Wells Deep Vein Thrombosis Score was calculated as follows: Total Score: 0-2 Pts- Low Risk. The patient's pulmonary embolism risk score was calculated as follows: Total Score: 0-2 points. This patient was found to be at low risk for a pulmonary embolism by using the Well's assessment criteria. Immunization status: Pneumococcal vaccine: Influenza vaccine: Data reviewed: vital signs, nurses notes, lab test result(s), EKG, radiologic studies, plain films. 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 Test interpretation: by ED physician or midlevel provider: ECG, plain radiologic studies. Counseling: I had a detailed discussion with the patient and/or guardian regarding: the historical points, exam findings, and any diagnostic results supporting the discharge/admit diagnosis, lab results, radiology results, the need for further work-up and treatment in the hospital. 10/01 18:11 Order name: Basic Metabolic Panel [facility] 10/01 18:11 Order name: CBC with Diff [facility] 10/01 18:11 Order name: LFT's [facility] 10/01 18:11 Order name: Magnesium [facility] 10/01 18:11 Order name: NT PRO-BNP; Complete Time: 21:33 [facility] 10/01 18:11 Order name: PT-INR; Complete Time: 21:26 [facility] 10/01 18:11 Order name: Troponin (emerg Dept Use Only); Complete Time: 21:33 [facility] 10/01 18:11 Order name: Blood Culture Adult (2) [facility] 10/01 18:11 Order name: Urine Culture [facility] 10/01 18:11 Order name: Basic Metabolic Panel; Complete Time: 21:33 EDIA 10/01 18:11 Order name: CBC with Automated Diff; Complete Time: 21:26 EDIA 10/01 18:11 Order name: Liver (Hepatic) Function; Complete Time: 21:33 EDMS 10/01 18:11 Order name: Magnesium; Complete Time: 21:33 EDIA 10/01 18:32 Order name: CRP; Complete Time: 21:58 la 10/01 18:32 Order name: Ferritin; Complete Time: 21:58 la 10/01 18:32 Order name: DD; Complete Time: 08:48 la 10/01 19:42 Order name: ABG; Complete Time: 21:26 em 10/02 05:40 Order name: D-Dimer; Complete Time: 08:48 EDMS 10/02 06:01 Order name: Comprehensive Metabolic Panel; Complete Time: 08:48 EDMS 10/02 06:01 Order name: Troponin I; Complete Time: 08:48 EDMS 10/02 06:01 Order name: Lipid Profile; Complete Time: 08:48 EDMS 10/02 06:01 Order name: C-Reactive Protein; Complete Time: 08:48 EDMS 10/02 06:01 Order name: T4 Free; Complete Time: 08:48 EDMS 10/02 06:01 Order name: Magnesium; Complete Time: 08:48 EDMS 10/02 06:01 Order name: Thyroid Stimulating Hormone; Complete Time: 08:48 EDMS 10/02 06:01 Order name: Ferritin; Complete Time: 08:48 EDMS 10/02 06:21 Order name: CBC with Automated Diff EDMS 10/02 06:55 Order name: ABG Arterial Blood Gas; Complete Time: 08:48 EDMS 10/02 11:49 Order name: CBC Smear Scan EDMS 10/03 03:21 Order name: CBC with Automated Diff EDMS 10/01 18:11 Order name: XRAY Chest (1 view); Complete Time: 19:23 [facility] 10/01 18:11 Order name: EKG; Complete Time: 18:12 [facility] 10/01 18:11 Order name: Cardiac monitoring; Complete Time: 20:19 [facility] 10/01 18:11 Order name: EKG - Nurse/Tech; Complete Time: 20:19 [facility] 10/01 18:11 Order name: IV Saline Lock; Complete Time: 19:13 [facility] 10/01 18:11 Order name: Labs collected and sent; Complete Time: 19:13 [facility] 10/01 18:11 Order name: O2 Per Protocol; Complete Time: 18:54 [facility] 10/01 18:11 Order name: O2 Sat Monitoring; Complete Time: 18:54 [facility] 10/01 21:34 Order name: CT Chest For PE Angio la1 10/03 03:23 Order name: D-Dimer EDMS 10/03 03:35 Order name: Comprehensive Metabolic Panel EDMS 10/03 03:35 Order name: C-Reactive Protein EDMS 10/03 03:35 Order name: Magnesium EDMS 10/03 03:35 Order name: Ferritin EDMS 10/04 03:01 Order name: CBC with Automated Diff EDMS 10/04 03:08 Order name: D-Dimer EDMS 10/04 03:12 Order name: Comprehensive Metabolic Panel EDMS 10/04 03:12 Order name: C-Reactive Protein EDMS 10/04 03:12 Order name: Magnesium EDMS 10/04 03:12 Order name: Ferritin EDMS 10/04 10:47 Order name: RAD EDMS EC:24 Rate is 124 beats/min. Rhythm is regular. QRS [place] is Normal. IN interval is normal. reina QRS interval is normal. QT interval is normal. No Q waves. T waves are Normal. ST Segment is depressed in leads V3, V4, V5, V6. Clinical impression: Abnormal EKG without significant change. Interpreted by me. Reviewed by me. Administered Medications: 18:54 Drug: Xopenex (levalbuterol) 3.75 mg Route: Inhalation; rb3 18:54 Drug: AtroVENT (ipratropium) Aerosol 0.5 mg Route: Inhalation; rb3 20:18 Drug: SOLU-Medrol (methylPrednisoLONE) 125 mg Route: IVP; Site: left antecubital; ea 20:18 Drug: Rocephin (cefTRIAXone) 1 grams Route: IV; Rate: per protocol; Site: left ea antecubital; 20:18 Drug: Pepcid (famotidine) 20 mg Route: IVP; Site: left antecubital; ea 20:19 Drug: NS 0.9% 1000 ml Route: IV; Rate: 125 ml/hr; Site: left antecubital; ea 20:19 Drug: NS 0.9% 500 ml Route: IV; Rate: bolus; Site: left antecubital; ea 20:19 Drug: Zithromax (azithromycin) 500 mg Route: IVPB; Infused Over: 1 hrs; Site: left ea antecubital; Disposition Summary: 10/01/20 18:44 Hospitalization Ordered Hospitalization Status: Inpatient Admission reina Provider: Loreta Junior cha Condition: Fair reina Problem: new reina Symptoms: have improved reina Bed/Room Type: Standard [facility] Location: Telemetry/MedSurg (Inpatient)(10/04/20 18:47) Room Assignment: 415(10/04/20 18:47) Diagnosis - COPD/ Chronic obstructive pulmonary disease with (acute) exacerbation reina - Hypoxemia reina - Coronavirus infection, unspecified reina Discharge Instructions: - Discharge Summary Sheet rb3 Forms: - Medication Reconciliation Form reina - SBAR form rb3 Signatures: Dispatcher [employer] Dawna Stanley RN RN kl Anderson, Corey, MD MD cha Attema, Lee, PHILOSOPHY LECTURER-C PHILOSOPHY LECTURER-Cla1 Missy Brandt RN RN Ruthie Fallon RN RN ea Barber, Rebecca RN RN rb3 Corrections: (The following items were deleted from the chart) 21:40 18:44 Telemetry/MedSurg (Inpatient) reina cg 21:40 18:44 reina cg 10/04 18:47 10/01 21:40 [facility] ER HOLD [facility] 10/04 18:47 08/21 21:40 ERHOLD- cg kl
[2020-10-01] MEDS ORDERED: IPRATROPIUM BROM 0.5MG/2.5ML ONE (19:12)
[2020-10-01] MEDS ORDERED: LEVALBUTEROL 1.25 MG/3 ML NEB ONE (19:13)
[2020-10-01 19:56] LABS: Arterial Blood Carboxyhemoglob 0.8 % (0-1.5); Blood Gas Oxyhemoglobin 90.2 % (94-97); Blood O2 Saturation 91.6 % (92-98.5)
[2020-10-01] MEDS ORDERED: FAMOTIDINE 20 MG/2 ML VIAL IV ONE (20:05)
[2020-10-01] MEDS ORDERED: NA CHLORIDE 0.9% 1,000 ML ONE (20:05)
[2020-10-01] MEDS ORDERED: NA CHLORIDE 0.9% 250 ML ONE (20:05)
[2020-10-01] MEDS ORDERED: METHYLPREDNISOLONE 125 MG INJ ONE (20:05)
[2020-10-01] MEDS ORDERED: AZITHROMYCIN 500 MG INJ IVPB ONE (20:05)
[2020-10-01] MEDS ORDERED: CEFTRIAXONE/SWI 1gm 1 GM/10 ML SYR ONE (20:06)
[2020-10-01 21:05] LABS: Absolute Lymphocytes (CBC) 1.1 K/uL (0.7-4.9); Basophils % 0.1 % (0-1.3); Hematocrit 39.1 % (39.6-49.0); Lymphocytes % 15.4 % (15.3-44.8); MPV 7.5 fL (7.6-11.3); RBC Red Blood Cell Count 4.21 M/uL (4.33-5.43)
[2020-10-01 21:07] LABS: Protime INR 1.09
[2020-10-01 21:27] LABS: ALT/SGPT 27 U/L (12-78); AST/SGOT 30 U/L (15-37); Albumin 3.1 g/dL (3.4-5.0); Alkaline Phosphatase 44 U/L (45-117); BUN Blood Urea Nitrogen 29 mg/dL (7-18); Bicarbonate 29 mmol/L (21-32); Bilirubin Direct 0.1 mg/dL (0-0.2); Bilirubin Total 0.3 mg/dL (0.2-1.0); Glucose Level 125 mg/dL (74-106); Magnesium 2.2 mg/dL (1.8-2.4); NT PRO-BNP 1378 pg/mL (<450); Potassium 3.7 mmol/L (3.5-5.1); Protein, Total 7.3 g/dL (6.4-8.2); Sodium Level 142 mmol/L (136-145); Troponin (Emerg Dept Use Only) 0.03 ng/mL (0.0-0.045)
[2020-10-01 21:37] LABS: C-Reactive Protein 39.3 mg/L (<3.00); Ferritin 494.2 ng/mL (26-388)
--- NOTE | 2020-10-01 22:54 | P.HP ---
Certification for Inpatient Patient admitted to: Inpatient With expected LOS: >2 Midnights Patient will require the following post-hospital care: None Practitioner: I am a practitioner with admitting privileges, knowledge of patient current condition, hospital course, and medical plan of care. Services: Services provided to patient in accordance with Admission requirements found in Title 42 Section 412.3 of the Code of Federal Regulations <Brock Noble - Last Filed: 10/01/20 22:51> Patient History Date of Service: 10/01/20 Reason for admission: Acute on chronic respiratory failure History of Present Illness: 84-year-old male with history of COPD on home oxygen presents emergency room for shortness of breath. Patient reports previously testing positive for Covid but unsure of first positive test, patient with increased oxygen requirement increasing from 2 to 3 L to about 6 L per nasal cannula at this time. Patient was evaluated emergency room and labs were significant for ferritin 494 C-reactive protein 39.3 BNP 1378. Patient in sinus tachycardia with rate around 110-120, patient afebrile in no respiratory distress, unknown etiology for sinus tachycardia, CT PE protocol ordered and pending. Chest x-ray unremarkable aside from COPD findings. ED provider wishes to admit for further evaluation and management of COPD with exacerbation complicated with COVID-19 - Past Medical/Surgical History Diabetic: No -: COPD -: Tobb[employer] abuse -: 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 Uses a walker at times when going outside. The patient is a former every day smoker, has a long history of chronic alcohol use. The patient is . - Family History Mother -: Cancer - Social History Alcohol use: Yes CD- Drugs: No Caffeine use: No Place of Residence: Home <Brock Noble - Last Filed: 10/01/20 22:51> Date of Service: 10/01/20 <Loreta Junior - Last Filed: 10/03/20 08:38> Allergies Influen Allergy (Uncoded 10/20/16 22:28) Unknown INFLUENZA Allergy (Uncoded 12/19/16 17:10) Unknown Home Medications: Albuterol Sulfate [Ventolin Hfa] 2 puff IH TID 06/16/18 Cetirizine HCl 10 mg PO DAILY 06/16/18 Mirtazapine 7.5 mg PO BEDTIME 06/16/18 Montelukast [Singulair*] 10 mg PO DAILY 06/16/18 Umeclidinium Brm/Vilanterol Tr [Anoro Ellipta 62.5-25 Mcg INH] 1 puff IN DAILY 10/07/18 Arformoterol Tartrate [Brovana] 15 mcg NEB BIDRESP #1 vial.neb 10/09/18 Theophylline [Rashad-Dur*] 200 mg PO DAILY #30 tab 10/09/18 levoFLOXacin [Levaquin*] 500 mg PO DAILY #5 tab 10/09/18 predniSONE [Prednisone*] 20 mg PO BID #14 tab 10/09/18 Review of Systems 10-point ROS is otherwise unremarkable General: Weakness, Malaise Respiratory: Cough, Shortness of Breath <Brock Noble - Last Filed: 10/01/20 22:51> Physical Examination - Physical Exam General: Alert, In no apparent distress, Oriented x3 HEENT: Atraumatic, PERRLA, Mucous membr. moist/pink, EOMI, Sclerae nonicteric Neck: Supple, 2+ carotid pulse no bruit, No LAD, Without JVD or thyroid abnormality Respiratory: Normal air movement, Expiratory wheezes Cardiovascular: Regular rate/rhythm, Normal S1 S2 Gastrointestinal: Normal bowel sounds, No tenderness Musculoskeletal: No tenderness Integumentary: No rashes Neurological: Normal speech, Normal strength at 5/5 x4 extr, Normal tone, Normal affect - Studies Laboratory Data (last 24 hrs) 10/01/20 20:40: PT 12.6 H, INR 1.09 10/01/20 20:40: WBC 7.00 D, Hgb 12.9 L, Hct 39.1 L, Plt Count 353 D 10/01/20 20:40: Sodium 142, Potassium 3.7, BUN 29 H, Creatinine 0.73, Glucose 125 H, Magnesium 2.2, Total Bilirubin 0.3, AST 30, ALT 27, Alkaline Phosphatase 44 L <Brock Noble - Last Filed: 10/01/20 22:51> Assessment and Plan - Plan Assessment: Acute on chronic hypoxic respiratory failure secondary to COPD with exacerbation complicated with COVID-19 on home oxygen Plan: Acute on chronic hypoxic respiratory failure secondary to COPD with exacerbation complicated with COVID-19 on home oxygen: Continue with IV steroids, oral supplements, scheduled Xopenex given sinus tachycardia. CT PE protocol pending. Pulmonology consulted. Monitor on telemetry. 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 <Loreta Junior - Last Filed: 10/03/20 08:38> Date of Service: 10/01/20 Agree with plan of care as mentioned above: Subjective Arrange for home oxygen and arrange for discharge over the next 24-48 hr if clinical symptoms improving Review of Systems 10-point ROS is otherwise unremarkable Physical Examination - Vital Signs Reviewed - Physical Exam General: Alert, In no apparent distress, Oriented x3 Respiratory: Clear to auscultation bilaterally, Normal air movement Cardiovascular: Regular rate/rhythm, Normal S1 S2, No murmurs Gastrointestinal: Normal bowel sounds, Soft and benign, Non-distended, No tenderness Musculoskeletal: No clubbing, No swelling, No tenderness Neurological: Cranial nerves 3-12 intact - Studies Medications List Reviewed: Yes Assessment & Plan - Problems (Diagnosis) (1) Pneumonia due to COVID-19 virus Current Visit: Yes Status: Acute (2) COPD exacerbation Onset Date: 10/22/16 Current Visit: No Status: Acute (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 Continue with IV steroids 2. Monitor inflammatory markers 3. Anticipate discharge over the next 24-48 hr if patient's clinical code symptoms continued to improve 4. Out of bed and ambulate 5. Respiratory status is stable and treatment is standard for COVID-19 6. Continue with albuterol inhaler therapy; also supportive care 7. GI and DVT prophylaxis Discharge Plan: Home Plan to discharge in: Greater than 2 days - Advance Directives Does patient have a Living Will: Yes Does patient have a Durable POA for Healthcare: Yes Critical Care: No Time Spent Managing PTS Care (In Minutes): 35 <Loreta Junior - Last Filed: 10/03/20 08:38>
[2020-10-01] MEDS ORDERED: ACETAMINOPHEN 500 MG TAB PO PRN (22:55)
[2020-10-01] MEDS ORDERED: BENZONATATE 100 MG CAP PO PRN (22:55)
[2020-10-01] MEDS ORDERED: ONDANSETRON 4 MG/2 ML VIAL IV PRN (22:55)
[2020-10-01] MEDS: NA CHLORIDE 0.9% 1,000 ML IV SCH (23:00)
[2020-10-02] MEDS: ALBUTEROL 2.5 MG/3 ML NEB SOL NEB SCH ×4 (02:00→19:47)
[2020-10-02] MEDS ORDERED: ALBUTEROL 2.5 MG/3 ML NEB SOL ONE ×3 (03:13→20:09)
[2020-10-02 05:34] LABS: Absolute Lymphocytes (CBC) 0.3 K/uL (0.7-4.9); Basophils % 0.1 % (0-1.3); Hematocrit 38.7 % (39.6-49.0); Lymphocytes % 7.5 % (15.3-44.8); MPV 7.2 fL (7.6-11.3); RBC Red Blood Cell Count 4.17 M/uL (4.33-5.43)
[2020-10-02] MEDS ORDERED: NA CHLORIDE 0.9% 1,000 ML ONE ×2 (05:59→18:30)
[2020-10-02 06:01] LABS: ALT/SGPT 29 U/L (12-78); AST/SGOT 29 U/L (15-37); Albumin 3.1 g/dL (3.4-5.0); Alkaline Phosphatase 46 U/L (45-117); BUN Blood Urea Nitrogen 24 mg/dL (7-18); Bicarbonate 27 mmol/L (21-32); Bilirubin Total 0.3 mg/dL (0.2-1.0); Ferritin 506.1 ng/mL (26-388); Glucose Level 164 mg/dL (74-106); HDL Cholesterol 56 mg/dL (40-60); LDL Cholesterol, Calculated 90 (<130); Magnesium 2.1 mg/dL (1.8-2.4); Potassium 4.2 mmol/L (3.5-5.1); Protein, Total 7.6 g/dL (6.4-8.2); Sodium Level 140 mmol/L (136-145); Troponin I 0.03 ng/mL (0.0-0.045)
[2020-10-02 06:53] LABS: Arterial Blood Carboxyhemoglob 0.7 % (0-1.5); Blood Gas Oxyhemoglobin 93.5 % (94-97); Blood O2 Saturation 94.9 % (92-98.5)
[2020-10-02] MEDS: VITAMIN D 1000 UNIT TAB PO SCH (09:00)
[2020-10-02] MEDS: ASCORBIC ACID 500 MG TABLET PO SCH ×4 (09:00→21:00)
[2020-10-02] MEDS: ASPIRIN EC 81 MG TAB PO SCH (09:00)
[2020-10-02] MEDS: NA CHLORIDE 0.9% 1,000 ML IV SCH ×2 (09:00→18:13)
[2020-10-02] MEDS: METHYLPREDNISOLONE 40 MG INJ IV SCH ×2 (09:00→21:00)
[2020-10-02] MEDS: THIAMINE HCL 100 MG TABLET PO SCH (09:00)
[2020-10-02] MEDS: DULERA 200/5 (MOMETASONE/FORMOTEROL) INHALER IH SCH ×3 (09:00→21:00)
[2020-10-02] MEDS: ENOXAPARIN 40 MG/0.4 ML SQ SCH (09:00)
[2020-10-02] MEDS: ZINC SULFATE 220 MG CAP PO SCH (09:00)
[2020-10-02] MEDS ORDERED: ASCORBIC ACID 500 MG TABLET ONE ×4 (09:07→22:33)
[2020-10-02] MEDS ORDERED: THIAMINE HCL 100 MG TABLET ONE (09:07)
[2020-10-02] MEDS ORDERED: ASPIRIN 81 MG CHEWABLE TABLET ONE (09:07)
[2020-10-02] MEDS ORDERED: VITAMIN D 1000 UNIT TAB ONE (09:08)
[2020-10-02] MEDS ORDERED: ZINC SULFATE 220 MG CAP ONE (09:08)
[2020-10-02] MEDS ORDERED: METHYLPREDNISOLONE 40 MG INJ ONE ×2 (09:08→22:33)
[2020-10-02] MEDS ORDERED: ENOXAPARIN 40 MG/0.4 ML SQ ONE (09:08)
--- NOTE | 2020-10-02 10:41 | EKG ---
Test Date: 2020-10-01 Test Time: 19:16:12 Banquet Manager: AURA MEASUREMENT RESULTS: Intervals: Rate: 124 CO: 146 QRSD: 98 QT: 322 QTc: 462 [place]: P: 76 CO: 146 QRS: -66 T: 86 INTERPRETIVE STATEMENTS: Sinus tachycardia Left axis deviation Incomplete right bundle branch block ST & T wave abnormality, consider anterolateral ischemia Abnormal ECG Compared to ECG 10/07/2018 08:48:00 Left-axis deviation now present ST (T wave) deviation now present Possible ischemia now present Sinus rhythm no longer present Atrial premature complex(es) no longer present Electronically Signed On 10-02-20 10:39:47 CDT by Ja Hinds
[2020-10-02 11:49] LABS: Blood Morphology Comment NOT SEEN (NOT SEEN); Platelet Estimate ADEQ; White Blood Cell Scan OK (OK)
[2020-10-03] MEDS: ALBUTEROL 2.5 MG/3 ML NEB SOL NEB SCH ×3 (00:26→14:00)
[2020-10-03] MEDS ORDERED: ALBUTEROL 2.5 MG/3 ML NEB SOL ONE ×4 (00:48→21:24)
[2020-10-03 01:18] VITALS: BMI 15.1
[2020-10-03 03:07] LABS: Absolute Lymphocytes (CBC) 0.3 K/uL (0.7-4.9); Basophils % 0.2 % (0-1.3); Hematocrit 32.7 % (39.6-49.0); Lymphocytes % 5.8 % (15.3-44.8); MPV 7.4 fL (7.6-11.3); RBC Red Blood Cell Count 3.58 M/uL (4.33-5.43)
[2020-10-03 03:26] LABS: ALT/SGPT 26 U/L (12-78); AST/SGOT 30 U/L (15-37); Albumin 2.7 g/dL (3.4-5.0); Alkaline Phosphatase 36 U/L (45-117); BUN Blood Urea Nitrogen 19 mg/dL (7-18); Bicarbonate 28 mmol/L (21-32); Bilirubin Total 0.3 mg/dL (0.2-1.0); Ferritin 359.9 ng/mL (26-388); Glucose Level 140 mg/dL (74-106); Magnesium 1.9 mg/dL (1.8-2.4); Potassium 3.4 mmol/L (3.5-5.1); Protein, Total 6.2 g/dL (6.4-8.2); Sodium Level 141 mmol/L (136-145)
--- NOTE | 2020-10-03 05:47 | P.CNS ---
Date of Consult: 10/03/20 Chief Complaint: Acute on chronic respiratory failure History of Present Illness: age 84, HX of COPD aw SOB,Hxof Pos for COVID,AW worseing sOb Allergies Influen Allergy (Uncoded 10/20/16 22:28) Unknown INFLUENZA Allergy (Uncoded 12/19/16 17:10) Unknown Home Medications: Albuterol Sulfate [Ventolin Hfa] 2 puff IH TID 06/16/18 Cetirizine HCl 10 mg PO DAILY 06/16/18 Mirtazapine 7.5 mg PO BEDTIME 06/16/18 Montelukast [Singulair*] 10 mg PO DAILY 06/16/18 Umeclidinium Brm/Vilanterol Tr [Anoro Ellipta 62.5-25 Mcg INH] 1 puff IN DAILY 10/07/18 Arformoterol Tartrate [Brovana] 15 mcg NEB BIDRESP #1 vial.neb 10/09/18 Theophylline [Rashad-Dur*] 200 mg PO DAILY #30 tab 10/09/18 levoFLOXacin [Levaquin*] 500 mg PO DAILY #5 tab 10/09/18 predniSONE [Prednisone*] 20 mg PO BID #14 tab 10/09/18 - Past Medical/Surgical History Diabetic: No -: COPD -: [employer] abuse -: 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 Uses a walker at times when going outside. The patient is a former every day smoker, has a long history of chronic alcohol use. The patient is . - Family History Mother Medical History: Cancer - Social History Smoking Status: Former smoker Alcohol use: Yes CD- Drugs: No Caffeine use: No Place of Residence: Home Review of Systems Respiratory: Cough, Shortness of Breath Physical Examination Temp Pulse Resp BP Pulse Ox 97.6 F 119 H 20 167/83 H 99 10/03/20 04:00 10/03/20 04:00 10/03/20 04:00 10/03/20 04:00 10/03/20 04:00 General: Alert, Oriented x3, Cooperative - Problems (1) COPD exacerbation Onset Date: 10/22/16 Current Visit: No Status: Acute Plan: age 84 AW COPD exacerbatin.CXRY COPD changes/ labs reviwed/Stabel evaluate for poss discahrge on pred
[2020-10-03] MEDS ORDERED: METHYLPREDNISOLONE 125 MG INJ ONE (08:14)
[2020-10-03] MEDS ORDERED: ASCORBIC ACID 500 MG TABLET ONE (08:14)
[2020-10-03] MEDS ORDERED: THIAMINE HCL 100 MG TABLET ONE (08:15)
[2020-10-03] MEDS ORDERED: ENOXAPARIN 40 MG/0.4 ML SQ ONE (08:15)
[2020-10-03] MEDS ORDERED: VITAMIN D 1000 UNIT TAB ONE (08:15)
[2020-10-03] MEDS ORDERED: ASPIRIN EC 81 MG TAB PO ONE (08:15)
[2020-10-03] MEDS ORDERED: ZINC SULFATE 220 MG CAP ONE (08:15)
--- NOTE | 2020-10-03 08:37 | P.PN ---
Subjective Date of Service: 10/02/20 Patient continues to improve with no new complaints. Patient clinical symptoms are stable. Anticipate discharge over the next 24-48 hr on home oxygen Review of Systems 10-point ROS is otherwise unremarkable Physical Examination - Vital Signs Temperature: 97.6 F Blood Pressure: 167/83 Pulse: 119 Respirations: 20 Pulse Ox (%): 99 - Physical Exam General: Alert, In no apparent distress, Oriented x3 Respiratory: Clear to auscultation bilaterally, Normal air movement Cardiovascular: Regular rate/rhythm, Normal S1 S2, No murmurs Gastrointestinal: Normal bowel sounds, Soft and benign, Non-distended, No tenderness Musculoskeletal: No clubbing, No swelling, No tenderness Neurological: Cranial nerves 3-12 intact - Studies Medications List Reviewed: Yes Assessment & Plan - Problems (Diagnosis) (1) Pneumonia due to COVID-19 virus Current Visit: Yes Status: Acute (2) COPD exacerbation Onset Date: 10/22/16 Current Visit: No Status: Acute (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 Continue with IV steroids 2. Monitor inflammatory markers 3. Anticipate discharge over the next 24-48 hr if patient's clinical code symptoms continued to improve 4. Out of bed and ambulate 5. Respiratory status is stable and treatment is standard for COVID-19 6. Continue with albuterol inhaler therapy; also supportive care 7. GI and DVT prophylaxis Discharge Plan: Home Plan to discharge in: Greater than 2 days - Advance Directives Does patient have a Living Will: Yes Does patient have a Durable POA for Healthcare: Yes Critical Care: No Time Spent Managing PTS Care (In Minutes): 35
[2020-10-03] MEDS: ENOXAPARIN 40 MG/0.4 ML SQ SCH (09:00)
[2020-10-03] MEDS: THIAMINE HCL 100 MG TABLET PO SCH (09:00)
[2020-10-03] MEDS: THEOPHYLLINE SR 100 MG TAB PO SCH (09:00)
[2020-10-03] MEDS ORDERED: HOME MED 1 EA UNK (Umeclidinium Brm/Vilanterol Tr [Anoro Ellipta 62.5-25 Mcg Inh] Blst.W.D IN SCH (09:00)
[2020-10-03] MEDS: METHYLPREDNISOLONE 40 MG INJ IV SCH ×2 (09:00→21:00)
[2020-10-03] MEDS: ASCORBIC ACID 500 MG TABLET PO SCH ×4 (09:00→21:00)
[2020-10-03] MEDS: VITAMIN D 1000 UNIT TAB PO SCH (09:00)
[2020-10-03] MEDS: ZINC SULFATE 220 MG CAP PO SCH (09:00)
[2020-10-03] MEDS: ASPIRIN EC 81 MG TAB PO SCH (09:00)
[2020-10-03] MEDS ORDERED: ARFORMOTEROL TARTRATE 15 MCG/2 ML VIAL.NEB ONE ×2 (09:46→21:24)
--- NOTE | 2020-10-03 12:10 | RAD REPORT ---
EXAM DESCRIPTION: CT - Chest For Pe Angio - 10/02/2020 5:10 am CLINICAL HISTORY: 84 years, Male, tachycardia, COVID,R/O PE;SOB COMPARISON: None. TECHNIQUE: Multiple transaxial tomograms of the chest were obtained from the lung apices through the lung bases utilizing 2 mm slice thickness at 2 mm interval reconstruction after the administration o f large bolus of IV contrast for complete opacification of the pulmonary arteries. Subsequent maximum intensity projection images were generated in the coronal and sagittal plane for r eview. This exam was performed according to our departmental dose-optimization protocol, which includes auto mated exposure control, adjustment of the mA and/or kV according to patient size and/or use of iterat kimo reconstruction technique. FINDINGS: The lungs parenchyma demonstrate hyperinflation. Centrilobular emphysematous changes throu ghout the lungs. No significant masses, nodules and/or consolidations are identified. No significant interstitial infiltrates are seen. Minimal dependent atelectatic changes are seen within the posterio r CP angles. Mild elevation of the right hemidiaphragm. Focal area of scarring/atelectasis within the left posterior CP angle measuring 2.3 x 0.6 cm on image 139. The trachea mainstem bronchus demonstrate to be normal. There is no significant pericardial or pleura l effusions. The thoracic aorta demonstrate intimal aortic arch calcification extending into the descending portio n and proximal great vessels. There is no evidence for aneurysmal dilatation/or significant dissectio n. The heart is normal in size. There is left ventricular hypertrophy. No evidence for right ventricu lar strain. There are minimal coronary artery calcifications. There is no significant mediastinal and/or hilar lymphadenopathy. The axillary regions demonstrate to be clear. Pulmonary arteries demonstrate to be normal, no intraluminal defect are seen that would suggest pulmo nary embolus. The bone windows demonstrate no significant skeletal lesions. The visualized portions of the upper abdomen demonstrate splenic granulomas. IMPRESSION: No evidence for pulmonary embolism and/or significant thoracic aortic dissection. No CT findings present to indicate pneumonia. Note: CT may be negative in the early stages of COVID-1 9 pneumonia (Reference: https://pubs.rsna.org/doi/full/10.1148/ryct.4912051783). Centrilobular emphysematous changes throughout the lungs. Focal area of scarring/atelectasis within the left posterior CP angle. Left ventricular hypertrophy with minimal coronary artery calcifications. Electronically signed by: Javy Ruiz MD 10/01/2020 11:58 PM CDT Due to temporary technical issues with the PACS/Fluency reporting system, reports are being signed by the in house radiologist without review as a courtesy to ensure prompt reporting. The interpreting r adiologist is fully responsible for the content of the report.
[2020-10-03] MEDS: MIRTAZAPINE 15 MG TAB PO SCH (21:00)
[2020-10-03] MEDS: ARFORMOTEROL TARTRATE 15 MCG/2 ML VIAL.NEB NEB SCH (21:02)
[2020-10-03] MEDS ORDERED: HYDRALAZINE HCL 20 MG/ML VIAL IV PRN (21:09)
[2020-10-03] MEDS ORDERED: METHYLPREDNISOLONE 40 MG INJ ONE (21:32)
[2020-10-03] MEDS ORDERED: HYDRALAZINE HCL 20 MG/ML VIAL ONE (22:22)
[2020-10-04 02:53] LABS: Absolute Lymphocytes (CBC) 0.3 K/uL (0.7-4.9); Basophils % 0.1 % (0-1.3); Hematocrit 35.7 % (39.6-49.0); Lymphocytes % 3.7 % (15.3-44.8); MPV 7.4 fL (7.6-11.3); RBC Red Blood Cell Count 3.94 M/uL (4.33-5.43)
[2020-10-04 03:12] LABS: ALT/SGPT 32 U/L (12-78); AST/SGOT 41 U/L (15-37); Albumin 2.9 g/dL (3.4-5.0); Alkaline Phosphatase 39 U/L (45-117); BUN Blood Urea Nitrogen 23 mg/dL (7-18); Bicarbonate 31 mmol/L (21-32); Bilirubin Total 0.4 mg/dL (0.2-1.0); Ferritin 350.1 ng/mL (26-388); Glucose Level 132 mg/dL (74-106); Potassium 3.6 mmol/L (3.5-5.1); Protein, Total 6.5 g/dL (6.4-8.2); Sodium Level 140 mmol/L (136-145)
[2020-10-04] MEDS: ARFORMOTEROL TARTRATE 15 MCG/2 ML VIAL.NEB NEB SCH ×2 (08:20→19:55)
[2020-10-04] MEDS ORDERED: ENOXAPARIN 40 MG/0.4 ML SQ ONE (08:28)
[2020-10-04] MEDS ORDERED: ASCORBIC ACID 500 MG TABLET ONE ×3 (08:28→21:23)
[2020-10-04] MEDS ORDERED: ZINC SULFATE 220 MG CAP ONE (08:28)
[2020-10-04] MEDS ORDERED: THIAMINE HCL 100 MG TABLET ONE (08:28)
[2020-10-04] MEDS ORDERED: METHYLPREDNISOLONE 125 MG INJ ONE (08:28)
[2020-10-04] MEDS ORDERED: ASPIRIN EC 81 MG TAB PO ONE (08:28)
[2020-10-04] MEDS ORDERED: ALBUTEROL 2.5 MG/3 ML NEB SOL ONE (08:40)
[2020-10-04] MEDS ORDERED: ARFORMOTEROL TARTRATE 15 MCG/2 ML VIAL.NEB ONE (08:41)
[2020-10-04] MEDS: ZINC SULFATE 220 MG CAP PO SCH (09:00)
[2020-10-04] MEDS: ASCORBIC ACID 500 MG TABLET PO SCH ×4 (09:00→21:07)
[2020-10-04] MEDS: ASPIRIN EC 81 MG TAB PO SCH (09:00)
[2020-10-04] MEDS: METHYLPREDNISOLONE 40 MG INJ IV SCH ×2 (09:00→21:07)
[2020-10-04] MEDS: THIAMINE HCL 100 MG TABLET PO SCH (09:00)
[2020-10-04] MEDS: THEOPHYLLINE SR 100 MG TAB PO SCH (09:00)
[2020-10-04] MEDS: VITAMIN D 1000 UNIT TAB PO SCH (09:00)
[2020-10-04] MEDS: HOME MED 1 EA UNK (Umeclidinium Brm/Vilanterol Tr [Anoro Ellipta 62.5-25 Mcg Inh] Blst.W.D IH SCH (09:00)
[2020-10-04] MEDS: ENOXAPARIN 40 MG/0.4 ML SQ SCH (09:00)
--- NOTE | 2020-10-04 09:32 | P.PN ---
Date of Service: 10/03/20 Subjective Patient doing well except for not swallowing. Supposed to get swallow study this morning. Review of Systems 10-point ROS is otherwise unremarkable Physical Examination - Vital Signs reviewed - Physical Exam General: Alert but confused; he does answer all my questions fairly appropriately. 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 Continue with IV steroids 2. Monitor inflammatory markers 3. Swallow study pending 4. Out of bed and ambulate 5. Respiratory status is stable and treatment is standard for COVID-19 6. Continue with albuterol inhaler therapy; also supportive care 7. GI and DVT prophylaxis
--- NOTE | 2020-10-04 10:05 | P.PN ---
Date of Service: 10/04/20 Subjective Swallow study in calorie count are pending. If patient does not want of feeding to then plan to discharge him home with hospice care with his advanced COPD. He follows up with sole conditioner in the [place] area-Dr. Lucio. He admits advanced COPD and he is on 4-6 L of oxygen at home according to the family. They have discussed options with me. According to the family they have discussed hospice care but at this time they Wanna continue seeing how he does with his swallowing and consider PEG tube if Mr. Griffin is agreeable. Review of Systems 10-point ROS is otherwise unremarkable Physical Examination - Vital Signs reviewed - Physical Exam General: Alert but confused; he does answer all my questions fairly appropriately. 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 Continue with IV steroids 2. Monitor inflammatory markers 3. Swallow study pending an calorie count pending 4. Out of bed and ambulate 5. Respiratory status is stable and treatment is standard for COVID-19 6. Continue with albuterol inhaler therapy; also supportive care 7. GI and DVT prophylaxis
--- NOTE | 2020-10-04 10:47 | RAD REPORT ---
EXAM DESCRIPTION: RAD - Barium Swallow Modified - 10/04/2020 10:38 am CLINICAL HISTORY: Cough/respiratory complication FINDINGS: Twelve fluoroscopic spot images obtained. Fluoroscopy time 1.5 minutes Laryngeal penetration: not cleared with nectar and thin Pharyngeal residue: Vallecular Moderate with thin, Moderate to severe with nectar, mild with honey, moderate with pudding Pyriform Mild with all consistencies tested Posterior wall Mild with all consistencies tested 1 sec swallow delay
[2020-10-04] MEDS: MIRTAZAPINE 15 MG TAB PO SCH (21:07)
[2020-10-04] MEDS ORDERED: METHYLPREDNISOLONE 40 MG INJ ONE (21:23)
[2020-10-05 06:19] LABS: Absolute Lymphocytes (CBC) 0.3 K/uL (0.7-4.9); Hematocrit 39.3 % (39.6-49.0); Lymphocytes % 2.8 % (15.3-44.8); MPV 6.9 fL (7.6-11.3); RBC Red Blood Cell Count 4.27 M/uL (4.33-5.43)
[2020-10-05 06:34] LABS: BUN Blood Urea Nitrogen 30 mg/dL (7-18); Bicarbonate 33 mmol/L (21-32); Glucose Level 111 mg/dL (74-106); Magnesium 2.3 mg/dL (1.8-2.4); Potassium 3.5 mmol/L (3.5-5.1); Sodium Level 144 mmol/L (136-145)
[2020-10-05] MEDS: ASPIRIN EC 81 MG TAB PO SCH (08:47)
[2020-10-05] MEDS: VITAMIN D 1000 UNIT TAB PO SCH (08:47)
[2020-10-05] MEDS: THIAMINE HCL 100 MG TABLET PO SCH (08:48)
[2020-10-05] MEDS: ASCORBIC ACID 500 MG TABLET PO SCH ×3 (08:48→16:50)
[2020-10-05] MEDS: ZINC SULFATE 220 MG CAP PO SCH (08:48)
[2020-10-05] MEDS: METHYLPREDNISOLONE 40 MG INJ IV SCH (08:49)
[2020-10-05] MEDS: THEOPHYLLINE SR 100 MG TAB PO SCH (08:49)
[2020-10-05] MEDS: ENOXAPARIN 40 MG/0.4 ML SQ SCH (08:49)
[2020-10-05] MEDS: HOME MED 1 EA UNK (Umeclidinium Brm/Vilanterol Tr [Anoro Ellipta 62.5-25 Mcg Inh] Blst.W.D IH SCH (08:50)
[2020-10-05] MEDS ORDERED: POTASSIUM CL SA 10 MEQ TAB PO ONE (09:00)
--- NOTE | 2020-10-05 09:29 | P.DS ---
Discharge Date: 10/05/20 Disposition: HOSPICE-HOME Discharge Condition: GOOD Reason for Admission: Acute on chronic respiratory failure - Problems (1) Pneumonia due to COVID-19 virus Status: Acute (2) COPD exacerbation Onset Date: 10/22/16 Status: Acute (3) Fibrotic lung diseases Status: Chronic Brief History of Present Illness: 84-year-old male with history of COPD on home oxygen presents emergency room for shortness of breath. Patient reports previously testing positive for Covid but unsure of first positive test, patient with increased oxygen requirement increasing from 2 to 3 L to about 6 L per nasal cannula at this time. Patient was evaluated emergency room and labs were significant for ferritin 494 C-reactive protein 39.3 BNP 1378. Patient in sinus tachycardia with rate around 110-120, patient afebrile in no respiratory distress, unknown etiology for sinus tachycardia, CT PE protocol ordered and pending. Chest x-ray unremarkable aside from COPD findings. ED provider wishes to admit for further evaluation and management of COPD with exacerbation complicated with COVID-19 Hospital Course: Patient has done well clinically. Patient is feeling much better. At this time, patient stable for discharge home. Vital Signs/Physical Exam: Temp Pulse Resp BP Pulse Ox 97 F 109 H 18 134/71 98 10/05/20 04:00 10/05/20 04:00 10/05/20 04:00 10/05/20 04:00 10/05/20 04:00 General: Alert, In no apparent distress, Cachectic Laboratory Data at Discharge: WBC 9.90 K/uL (4.3-10.9) D 10/05/20 05:54 Hgb 13.3 g/dL (13.6-17.9) L 10/05/20 05:54 Hct 39.3 % (39.6-49.0) L 10/05/20 05:54 Plt Count 517 K/uL (152-406) H 10/05/20 05:54 PT 12.6 SECONDS (9.5-12.5) H 10/01/20 20:40 INR 1.09 10/01/20 20:40 Sodium 144 mmol/L (136-145) 10/05/20 05:54 Potassium 3.5 mmol/L (3.5-5.1) 10/05/20 05:54 BUN 30 mg/dL (7-18) H 10/05/20 05:54 Creatinine 0.47 mg/dL (0.55-1.3) L 10/05/20 05:54 Glucose 111 mg/dL (74-106) H 10/05/20 05:54 Magnesium 2.3 mg/dL (1.8-2.4) 10/05/20 05:54 Total Bilirubin 0.4 mg/dL (0.2-1.0) 10/04/20 02:18 AST 41 U/L (15-37) H 10/04/20 02:18 ALT 32 U/L (12-78) 10/04/20 02:18 Alkaline Phosphatase 39 U/L (45-117) L 10/04/20 02:18 Troponin I 0.03 ng/mL (0.0-0.045) 10/02/20 05:14 Triglycerides 119 mg/dL (<150) 10/02/20 05:14 Cholesterol 170 mg/dL (<200) 10/02/20 05:14 HDL Cholesterol 56 mg/dL (40-60) 10/02/20 05:14 Cholesterol/HDL Ratio 3.04 10/02/20 05:14 Home Medications: Albuterol Sulfate [Ventolin Hfa] 2 puff IH TID 06/16/18 Cetirizine HCl 10 mg PO DAILY 06/16/18 Mirtazapine 7.5 mg PO BEDTIME 06/16/18 Montelukast [Singulair*] 10 mg PO DAILY 06/16/18 Umeclidinium Brm/Vilanterol Tr [Anoro Ellipta 62.5-25 Mcg INH] 1 puff IN DAILY 10/07/18 Arformoterol Tartrate [Brovana] 15 mcg NEB BIDRESP #1 vial.neb 10/09/18 Theophylline [Rashad-Dur*] 200 mg PO DAILY #30 tab 10/09/18 levoFLOXacin [Levaquin*] 500 mg PO DAILY #5 tab 10/09/18 Ascorbic Acid [Vitamin C*] 500 mg PO QID #60 tablet 10/03/20 Benzonatate [Tessalon Perle*] 100 mg PO TID PRN #30 cap 10/03/20 Cholecalciferol (Vitamin D3) [Vitamin D 1000 Iu Tab*] 4,000 unit PO DAILY #30 tab 10/03/20 Thiamine HCl [Vitamin B-1*] 200 mg PO DAILY #30 tablet 10/03/20 Zinc Sulfate [Zinc Sulfate*] 220 mg PO DAILY #30 cap 10/03/20 Metoprolol Tartrate [Lopressor] 25 mg PO BID #60 tab 10/05/20 predniSONE [Prednisone*] 20 mg PO BID #30 tab 10/05/20 New Medications: Metoprolol Tartrate [Lopressor] 25 mg PO BID #60 tab predniSONE [Prednisone*] 20 mg PO BID #30 tab Benzonatate [Tessalon Perle*] 100 mg PO TID PRN #30 cap PRN Reason: Cough Thiamine HCl [Vitamin B-1*] 200 mg PO DAILY #30 tablet Ascorbic Acid [Vitamin C*] 500 mg PO QID #60 tablet Cholecalciferol (Vitamin D3) [Vitamin D 1000 Iu Tab*] 4,000 unit PO DAILY #30 tab Zinc Sulfate [Zinc Sulfate*] 220 mg PO DAILY #30 cap Physician Discharge Instructions: OK TO DC IV AND DC HOME FOLLOW-UP WITH PRIMARY CARE PROVIDER IN 1-2 WEEKS FOLLOW-UP WITH Pulmonary in 1-2 weeks RETURN TO THE ER IF symptoms worsen CALL or TEXT DR. SUMMERS AT [phone] IF ANY QUESTIONS REGARDING HOSPITAL STAY. PLEASE CALL THE FLOOR AT [phone] IF ANY MEDICATION OR NURSING QUESTIONS. Diet: AHA Activity: Fall precautions Followup: Dejan Mtz MD [ACTIVE - CAN ADMIT] - Unknown,U [Primary Care Provider] - 1 Week (call PCP for appointment) Time spent managing pt's care (in minutes): 35
[2020-10-05] MEDS: ARFORMOTEROL TARTRATE 15 MCG/2 ML VIAL.NEB NEB SCH (09:35)
[2020-10-05 09:38] LABS: Blood Morphology Comment NOT SEEN (NOT SEEN); Platelet Estimate INCR; White Blood Cell Scan OK (OK)
[2020-10-05 13:07] VITALS: O2SAT 92
[2020-10-05] MEDS ORDERED: ENSURE ENLIVE 237 ML CAN PO SCH ×2 (14:00→21:00)
[2020-10-05 16:40] VITALS: BP 130/67; TEMP 97.2
== END 2020-10-05 17:30 | disposition hospice, home (50) | DRG 177 ==
LOC: ER 17:48 → ERHOLD 22:27 → 4TH 10-04 21:27
PROVIDERS: ADMIT Hospitalist; ATTEND Hospitalist
DX: U07.1 COVID-19 (principal); J96.21 Acute and chronic respiratory failure with hypoxia; J12.82 Pneumonia due to coronavirus disease 2019; J44.1 Chronic obstructive pulmonary disease with (acute) exacerbation; R64 Cachexia; Z68.1 Body mass index [BMI] 19.9 or less, adult; J44.0 Chronic obstructive pulmonary disease with (acute) lower respiratory infection; J84.10 Pulmonary fibrosis, unspecified; R00.0 Tachycardia, unspecified; R13.10 Dysphagia, unspecified; H35.30 Unspecified macular degeneration; Z99.81 Dependence on supplemental oxygen; Z87.891 Personal history of nicotine dependence
CPT/HCPCS: 36415; 71045; 71275; 74230; 80048; 80053; 80061; 80076; 82728; 82805; 83735; 83880; 84439; 84443; 84484; 85025; 85379; 85610; 86140; 87040; 92610; 92611; 93005; 94010; 94640; 94760; 96374; 96375; 97116; 97161; 97530; 99284; J0360; J0456; J0696; J1650; J2920; J2930; J7030; J7050; J7605; J7606; Q9967